=== PATIENT | male | born 1950 | race African-American/Black ===

== ENCOUNTER 2017-06-21 18:18 | Inpatient (IN) | payer MEDICARE, MEDICAID ==
[2017-06-21 19:01] LABS: % BASOPHILS 2.1 % (0.0-2.0); % EOSINOPHILS 3.5 % (0.0-5.0); % MONOCYTES 9.9 % (2.0-10.0); % NEUTROPHILS 52.5 % (40.0-80.0); HEMATOCRIT 41.2 % (39.0-49.0); HEMOGLOBIN 13.7 gm/dL (12.6-17.4); MEAN CELL VOLUME 83.9 fl (80-99); MEAN CORPUSCULAR HEMOGLOBIN 27.8 pg (27.0-31.0); MEAN CORPUSCULAR HGB CONC 33.2 pg (28.0-36.0); MEAN PLATELET VOLUME 8.6 fl; NEUTROPHILE ABSOLUTE 3.1 Th/cmm (1.8-8.0); PLATELET COUNT 236 Th/cmm (150-400); RED BLOOD COUNT 4.91 Mil/cmm (3.80-5.80); RED CELL DISTRIBUTION WIDTH 13.1 % (11.5-20.0); WHITE BLOOD COUNT 5.9 Th/cmm (4.8-10.8)
[2017-06-21 19:18] LABS: ALB/GLOB RATIO 1.3 (1.0-1.8); ANION GAP 7.9 (7.0-16.0); BILIRUBIN,TOTAL 0.4 mg/dL (0.3-1.0); BUN/CREATININE RATIO 13.1; CALCIUM SERUM 10.3 mg/dL (8.6-10.3); CARBON DIOXIDE 30.1 mEq/L (21.0-31.0); CREATININE - SERUM 1.6 mg/dL (0.7-1.3)
[2017-06-21 19:37] LABS: INR 0.93 (0.5-1.4); PROTHROMBIN TIME (TEST) 9.7 SECONDS (9.5-11.5)
--- NOTE | 2017-06-21 19:43 | ED Physician Chart ---
Chief Complaint/HPI - Patient Information Date Seen:: 06/21/17 Time Seen:: 18:24 Chief Complaint:: EDEMA History of Present Illness:: THIS IS A 67 YO MALE DIABETES MELLITUS AND CHF SENT HERE FOR EVALUATION AND TREATMENT OF HIS CONDITION. 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 Allergies:: Allergies Allergy/AdvReac Type Severity Reaction Status Date / Time Penicillins Allergy Verified 06/21/17 18:22 Vitals:: Vital Signs - 8 hr 06/21/17 18:22 Temp 99.0 F HR 86 RR 17 BP 154/60 O2 Sat % 100 Historian:: Medical Records Review:: Nurse's Note Reviewed Review of Systems - Review of Systems General/Constitutional: No fever, No chills, No weight loss, No weakness, No diaphoresis, No edema, No loss of appetite Skin: No skin lesions, No rash, No bruising Head: No headache, No light-headedness Eyes: No loss of vision, No pain, No diplopia ENT: No earache, No nasal drainage, No sore throat, No tinnitus Neck: No neck pain, No swelling, No thyromegaly, No stiffness, No mass noted Cardio Vascular: No chest pain, No palpitations, No PND, No orthopnea, No edema Pulmonary: No SOB, No cough, No sputum, No wheezing GI: No nausea, No vomiting, No diarrhea, No pain, No melena, No hematochezia, No constipation, No hematemesis G/U: No dysuria, No frequency, No hematuria Musculoskeletal: No bone or joint pain, No back pain, No muscle pain, Other ( EDEMA OF BOTH LOWER EXTREMITIES) Endocrine: No polyuria, No polydipsia Psychiatric: No prior psych history, No depression, No anxiety, No suicidal ideation Hematopoietic: No bruising, No lymphadenopathy Allergic/Immuno: No urticaria, No angioedema Neurological: No syncope, No focal symptoms, No weakness, No paresthesia, No headache, No seizure, No dizziness, No confusion, No vertigo Past Medical History - Past Medical History Obtainable: Yes Past Medical History: HTN, DM, CHF Family History: None Social History: Non Smoker, No Alcohol, No Drug Use Surgical History: other (BKA S) Psychiatricy History: Schizophrenia Family Medical History - Family Member Mother History Unknown: Yes Physical Exam - Physical Examination General/Constitutional: Awake, Well-developed, well-nourished, Alert, No distress, GCS 15, Non-toxic appearing, Ambulatory Head: Atraumatic Eyes: Lids, conjuctiva normal, PERRL, EOMI Skin: Nl inspection, No rash, No skin lesions, No ecchymosis, Well hydrated, No lymphadenopathy ENMT: External ears, nose nl, Nasal exam nl, Lips, teeth, gums nl Neck: Nontender, Full ROM w/o pain, No JVD, No nuchal rigidity, No bruit, No mass, No stridor Respiratory: Nl effort/Exclusion, Clear to Auscultation, No Wheeze/Rhonchi/Rales Cardio Vascular: RRR, No murmur, gallop, rubs, NL S1 S2 GI: No tenderness/rebounding/guarding, No organomegaly, No hernia, Normal BS's, Nondistended, No mass/bruits, No McBurney tenderness : No CVA tenderness Other Extremities comments:: BOTH BKA STUMPS ARE SWOLLEN WITH 4+ PITTING EDEMA Neuro/Psych: Alert/oriented, DTR's symmetric, Normal sensory exam, Normal motor strength, Judgement/insight normal, Mood normal, Normal gait, No focal deficits Misc: normal gait, Normal back, No paraspinal tenderness Labs/Radiology/EKG Results - Lab Results Results: Laboratory Tests 06/21/17 06/21/17 06/21/17 18:52 18:52 18:52 WBC 5.9 RBC 4.91 Hgb 13.7 Hct 41.2 MCV 83.9 MCH 27.8 MCHC Differential 33.2 RDW 13.1 Plt Count 236 MPV 8.6 Neutrophils % 52.5 Lymphocytes % 32.0 Monocytes % 9.9 Eosinophils % 3.5 Basophils % 2.1 H Sodium 128 L Potassium 4.0 Chloride 94 L Carbon Dioxide 30.1 Anion Gap 7.9 BUN 21 Creatinine 1.6 H Est GFR ( Amer) 55.9 Est GFR (Non-Af Amer) 46.2 BUN/Creatinine Ratio 13.1 Glucose 434 H Calcium 10.3 Total Bilirubin 0.4 AST 16 ALT 9 Alkaline Phosphatase 117 H Troponin I 0.01 B-Natriuretic Peptide Total Protein 8.0 Albumin 4.5 Globulin 3.5 Albumin/Globulin Ratio 1.3 06/21/17 18:52 WBC RBC Hgb Hct MCV MCH MCHC Differential RDW Plt Count MPV Neutrophils % Lymphocytes % Monocytes % Eosinophils % Basophils % Sodium Potassium Chloride Carbon Dioxide Anion Gap BUN Creatinine Est GFR ( Amer) Est GFR (Non-Af Amer) BUN/Creatinine Ratio Glucose Calcium Total Bilirubin AST ALT Alkaline Phosphatase Troponin I B-Natriuretic Peptide 48.6 Total Protein Albumin Globulin Albumin/Globulin Ratio Abnormal Lab Results 06/21/17 06/21/17 06/21/17 18:52 18:52 18:52 WBC 5.9 RBC 4.91 Hgb 13.7 Hct 41.2 MCV 83.9 MCH 27.8 MCHC Differential 33.2 RDW 13.1 Plt Count 236 MPV 8.6 Neutrophils % 52.5 Lymphocytes % 32.0 Monocytes % 9.9 Eosinophils % 3.5 Basophils % 2.1 H PT 9.7 INR 0.93 PTT (Actin FS) 26.2 Sodium 128 L Potassium 4.0 Chloride 94 L Carbon Dioxide 30.1 Anion Gap 7.9 BUN 21 Creatinine 1.6 H Est GFR ( Amer) 55.9 Est GFR (Non-Af Amer) 46.2 BUN/Creatinine Ratio 13.1 Glucose 434 H Hemoglobin A1c % Calcium 10.3 Total Bilirubin 0.4 AST 16 ALT 9 Alkaline Phosphatase 117 H Troponin I B-Natriuretic Peptide Total Protein 8.0 Albumin 4.5 Globulin 3.5 Albumin/Globulin Ratio 1.3 TSH 06/21/17 06/21/17 06/21/17 18:52 18:52 18:52 WBC RBC Hgb Hct MCV MCH MCHC Differential RDW Plt Count MPV Neutrophils % Lymphocytes % Monocytes % Eosinophils % Basophils % PT INR PTT (Actin FS) Sodium Potassium Chloride Carbon Dioxide Anion Gap BUN Creatinine Est GFR ( Amer) Est GFR (Non-Af Amer) BUN/Creatinine Ratio Glucose Hemoglobin A1c % Calcium Total Bilirubin AST ALT Alkaline Phosphatase Troponin I 0.01 B-Natriuretic Peptide 48.6 Total Protein Albumin Globulin Albumin/Globulin Ratio TSH 1.00 06/21/17 18:52 WBC RBC Hgb Hct MCV MCH MCHC Differential RDW Plt Count MPV Neutrophils % Lymphocytes % Monocytes % Eosinophils % Basophils % PT INR PTT (Actin FS) Sodium Potassium Chloride Carbon Dioxide Anion Gap BUN Creatinine Est GFR ( Amer) Est GFR (Non-Af Amer) BUN/Creatinine Ratio Glucose Hemoglobin A1c % 12.2 H Calcium Total Bilirubin AST ALT Alkaline Phosphatase Troponin I B-Natriuretic Peptide Total Protein Albumin Globulin Albumin/Globulin Ratio TSH - Radiology Results Results: CHEST X-RAY = CARDIOMEGALY - EKG Interpretations EKG Time:: 18:48 Rate & Rhythm: 80 RATE SINUS [place]: RIGHT AXIS Assessment - Assessment General Assessment: CHRONIC CONGESTIVE FAILURE ED Septic Shock - . Is Septic Shock (SBP<90, OR Lactate>4 mmol\L) present?: No - <6hrs of presentation: Vital Signs: Vital Signs - 8 hr 06/21/17 18:22 Temp 99.0 F HR 86 RR 17 BP 154/60 O2 Sat % 100 Reassessment (Disposition) - Reassessment Reassessment Condition:: Unchanged - Diagnosis Diagnosis:: CONGESTIVE HEART FAILURE ELECTROLYTE IMBALANCE BILATERAL LOWER EXTREMITY EDEMA DIABETES UNCONTROLLED - Patient Disposition Discharge/Transfer:: Acute Care w/in this hosp Admitted to:: Telemetry Admitting Medical Physician:: Bob Meehan Condition at Disposition:: Unchanged ED Discharge Plan - Patient Disposition Admit/Discharge/Transfer: Acute Care w/in this hosp Condition at Disposition: Unchanged
[2017-06-21 22:16] LABS: URINE BILIRUBIN NEGATIVE (NEGATIVE); URINE BLOOD NEGATIVE (NEGATIVE); URINE GLUCOSE (UA) >=1000 mg/dL (NEGATIVE); URINE KETONE NEGATIVE (NEGATIVE); URINE PROTEIN NEGATIVE (NEGATIVE); URINE UROBILINOGEN 0.2 E.U./dL (0.2 - 1.0)
[2017-06-21 22:19] LABS: URINE BACTERIA NONE SEEN /hpf (NONE SEEN); URINE COLOR PALE YELLOW; URINE EPITHELIAL CELLS RARE /lpf (FEW); URINE RBC 0-2 /hpf (0-5); URINE WBC 0-2 /hpf (0-5)
[2017-06-21] MEDS ORDERED: INSULIN HUMAN REGULAR 100 UNITS/ML UNIT SUBQ SCH (22:20)
[2017-06-21] MEDS ORDERED: Acetaminophen 500 MG TAB PO PRN (22:20)
[2017-06-22] MEDS: INSULIN 70/30 100 UNITS/ML SUBQ SCH ×3 (00:38→18:01)
[2017-06-22] MEDS: Sodium Chloride 0.9% 1,000 ML IV SCH ×2 (00:45→14:31)
[2017-06-22] MEDS: INSULIN ASPART SLIDING SCALE 100 UNITS/ML UNIT SUBQ SCH ×5 (00:46→23:02)
--- NOTE | 2017-06-22 03:48 | Admit Criteria Form ---
Admit Criteria Forms - Admit Criteria Diagnosis: HEART FAILURE Clinical Indications for Admission to Inpatient Care (Place 'X' for any and all applicable criteria): Admission is indicated by 1 or more of the following(1)(2)(3)(4)(5)(6)(7) [ ]I. Hemodynamic instability(9) [X ]II. Severe electrolyte abnormalities requiring inpatient care [ ]III. Cardiac arrhythmias of immediate concern [ ]IV. Precipitating cause for acute decompensation (eg, pneumonia, pulmonary embolism) requires inpatient care [ ]V. Acute cardiac ischemia causing or associated with failure (Also use Angina or Myocardial Infarction as appropriate) [ ]. Pulmonary edema that is very severe (eg, mechanical ventilation needed, imminent or likely, need for 100% oxygen to keep oxygen saturation above 90%) [ ]VII. Massive skin edema (anasarca) with complications (eg tissue breakdown with infection, inability to void due to edema)[A] (15) [ ]VIIl. Inpatient admission required [B]rather than observation care (See Heart Failure: Observation Care as appropriate) because of 1 or more of the following(16)(17): [ ]a) Pulmonary edema that is severe or worsening as indicated by ALL of the following: [ ]1) New need for oxygen therapy to keep oxygen saturation above 90% (or increased FiO2 need from baseline) [ ]2) Has not improved sufficiently with emergency department or observation care IV diuretics or other heart failure treatments[C] [ ]b) Altered mental status that is severe or persistent [ ]c) Increased creatinine (new on laboratory test) with reduction of more than 50% in estimated glomerular filtration rate from baseline. [ ]d) Progressively (ongoing) rising creatinine (known from past laboratory test) with reduction of more than 25% in estimated glomerular filtration rate from baseline [ ]e) Acute renal insufficiency (progressively (ongoing) rising creatinine (known from past laboratory test) with reduction of more than 25% in estimated glomerular filtration rate from baseline. [ ]f) Acute renal failure [ ]g) Acute peripheral ischemia (e.g., examination shows pulseless, cool, mottled, or cyanotic extremity) [ ]h) Oyxgen administration or respiratory treatments have been needed for over 24 hours that are performable only in acute inpatient setting [ ]i) Pulmonary artery catheter monitoring [ ]j) Other condition, treatment or monitoring requiring inpatient admission Extended stay beyond goal length of stay may be needed for(1)(14)(38)(42)(45) [ ]a) Cardiac ischemia, confirmed or suspected as precipitant (1) [ ]b) Cardiogenic shock (2)(46)(47)(48)(49) [ ]c) Acute renal failure [ ]d) Stage IV chronic kidney disease (estimated glomerular filtration rate of less than 30 mL/min/1.73m2 (0.50 mL/sec/1.73m2), and not previously on chronic dialysis [ ]e) Respiratory failure (eg, need for noninvasive or invasive ventilation) ( 50) [ ]f) Concomitant pneumonia or significant electrolyte abnormality (eg, severe hyponatremia) (51) [ ]g) Newly diagnosed (new onset) atrial fibrillation (52)(53) The original [facility] content created by [facility] has been revised. The portions of the content which have been revised are identified through the use of italic text or in bold, and [facility] has neither reviewed nor approved the modified material. All other unmodified content is copyright [facility]. Please see references footnoted in the original [facility] edition 2017 Admit Criteria Met?: Yes
[2017-06-22 04:03] VITALS: BP 149/84
[2017-06-22 07:20] LABS: % BASOPHILS 0.4 % (0.0-2.0); % LYMPHOCYTES 27.2 % (20.0-50.0); % MONOCYTES 14.4 % (2.0-10.0); HEMATOCRIT 40.1 % (39.0-49.0); HEMOGLOBIN 13.3 gm/dL (12.6-17.4); MEAN CELL VOLUME 83.4 fl (80-99); MEAN CORPUSCULAR HEMOGLOBIN 27.7 pg (27.0-31.0); MEAN CORPUSCULAR HGB CONC 33.2 pg (28.0-36.0); NEUTROPHILE ABSOLUTE 3.6 Th/cmm (1.8-8.0); PLATELET COUNT 211 Th/cmm (150-400); RED BLOOD COUNT 4.81 Mil/cmm (3.80-5.80); RED CELL DISTRIBUTION WIDTH 13.2 % (11.5-20.0); WHITE BLOOD COUNT 6.6 Th/cmm (4.8-10.8)
[2017-06-22 07:36] LABS: ALB/GLOB RATIO 1.3 (1.0-1.8); ALKALINE PHOSPHATASE 119 U/L (34-104); ANION GAP 7.2 (7.0-16.0); BILIRUBIN,TOTAL 0.4 mg/dL (0.3-1.0); BUN - UREA NITROGEN 20 mg/dL (7-25); BUN/CREATININE RATIO 13.3; CALCIUM SERUM 10.1 mg/dL (8.6-10.3); CARBON DIOXIDE 28.7 mEq/L (21.0-31.0); CHLORIDE 103 mEq/L (98-107); CHOLESTEROL 134 mg/dL (<200); CREATININE - SERUM 1.5 mg/dL (0.7-1.3); GLUCOSE 309 mg/dL (70-105); POTASSIUM SERUM 3.9 mEq/L (3.5-5.1); SGOT 17 U/L (13-39); SGPT/ALT 9 U/L (7-52); SODIUM SERUM 135 mEq/L (136-145); TRIGLYCERIDES 147 mg/dL (<150)
--- NOTE | 2017-06-22 08:16 | Diagnostic Imaging Report ---
Portable chest x-ray HISTORY: Shortness of breath There is a poor inspiration. Heart size difficult to assess with portable technique and the poor inspiration. No focal pulmonary processes. No hilar or mediastinal masses. IMPRESSION: 1. No acute focal pulmonary processes
[2017-06-22] MEDS ORDERED: [UNRECOGNIZED DRUG - OTHER] OP SCH (09:00)
[2017-06-22] MEDS ORDERED: PROTEIN HYDROLYS PO SCH (09:00)
[2017-06-22] MEDS ORDERED: Non-Formulary Item 1 EA (Ranolazine [Ranexa] 500 MG) PO SCH (09:00)
[2017-06-22] MEDS ORDERED: AMINO ACIDS PO SCH (09:00)
[2017-06-22] MEDS ORDERED: KETOROLAC TROMETHAMINE OP SCH (09:00)
[2017-06-22] MEDS: Pantoprazole 40 mg EC Tab PO SCH (09:47)
[2017-06-22] MEDS: Aspirin 81mg Chewable Tab PO SCH (09:47)
[2017-06-22] MEDS: Potassium Chloride Elixir 20 mEq /15 mL UDC PO SCH (09:48)
[2017-06-22] MEDS: Prednisolone 1% Ophth Susp 5 mL Bottle RIGHT EYE SCH ×4 (10:28→22:55)
[2017-06-22] MEDS ORDERED: VTE Chemical Prophylaxis Screen/Admission MC PRN (15:38)
[2017-06-22] MEDS ORDERED: PRAVASTATIN SODIUM 20 MG PO SCH (18:00)
--- NOTE | 2017-06-22 20:34 | History & Physical ---
ADMIT DATE: 06/21/2017 HISTORY OF PRESENT ILLNESS: This is a 67-year-old male patient. The patient was referred from [facility]. The patient has been there for a psychiatric problem. Also known to have history of hypertension and diabetes, bilateral knee amputation. The patient was complaining of increasing swelling, as well as the patient's diabetes was uncontrolled. The patient was seen in the Emergency Room, was admitted for uncontrolled diabetes. The patient is known to have history of hypertension, history of CHF. REVIEW OF SYSTEMS: Essentially negative. PAST MEDICAL HISTORY: As enumerated above. PHYSICAL EXAMINATION: GENERAL: The patient is awake, alert. VITAL SIGNS: Stable. HEAD: Normal. ENT: Normal. EXTREMITIES: Both BKA stumps were swollen. There was 4+ pitting edema. LABORATORY DATA: WBC count was 4.9, hemoglobin was okay. His initial set of troponin was okay. The patient's chest x-ray showed cardiomegaly. DIAGNOSES: Acute on chronic congestive heart failure, systolic heart failure, rule out pneumonia, bilateral stump swelling, rule out cellulitis, history of diabetes, diabetes uncontrolled. PLAN: The patient is being admitted. I will go ahead and give orders for the control of his blood sugar, antibiotics, and I will also have ID doctor see the patient and I will follow the patient. JOB# [id number]
[2017-06-22] MEDS ORDERED: QUETIAPINE FUMARATE 300 MG PO SCH (21:00)
--- NOTE | 2017-06-22 23:13 | Consultation ---
DATE OF CONSULTATION: 06/22/[address] Meehan. HISTORY AND PHYSICAL: This is a 67-year-old -[place] male patient, who has a known history of congestive heart failure, diabetes, complaining of shortness of breath, swelling in upper and lower extremities with general anasarca and the patient came to the Emergency Room with congestive heart failure. The patient is admitted. Cardiac consult is requested. PAST MEDICAL HISTORY: Congestive heart failure; diabetes mellitus type 2; diabetic CKD, stage 2; diabetic neuropathy with blindness, BPH, hypertension, cataract; hyperlipidemia; nicotine dependence; angina; schizophrenia; and bipolar. FAMILY HISTORY: Unremarkable except diabetes. SOCIAL HISTORY: The patient still continues to smoke. ALLERGIES: None. PHYSICAL EXAMINATION: VITAL SIGNS: Blood pressure 130/80, pulse 88, respirations 28. HEAD: Normocephalic. No lumps or bumps. EYES: . The patient is legally blind. NECK: JVD 10 cm above the sternal angle. Thyroid not palpable. Lymph nodes not palpable. CHEST: Shows increased AP diameter. No kyphosis, scoliosis. LUNGS: Bilateral rales. Decreased breath sounds both at the bases. HEART: PMI at sixth intercostal space with lateral to midclavicular line. S1, S2, S3, S4, soft systolic murmur. ABDOMEN: Soft. Liver and spleen not palpable. Hepatojugular reflux. Positive bowel sounds active. RECTAL: Deferred. EXTREMITIES: Peripheral pulses 1+, pedal edema 2+. CLINICAL IMPRESSION: Congestive heart failure, acute diastolic dysfunction, diabetes mellitus type 2, diabetic chronic kidney disease stage 2, BPH, hypertension, cataract, hyperlipidemia, nicotine dependence, angina, schizophrenia, bipolar, diabetic retinopathy with blindness. PLAN: At the present time, we will continue diuretics, preload and afterload reduction, and get echocardiogram for left ventricular function. JOB# [id number]
--- NOTE | 2017-06-23 01:37 | Consultation ---
DATE OF CONSULTATION: 06/22/2017 ATTENDING: Dr. Lin Meehan. LOCATION DIRECTOR: Lg Collier M.D. REASON FOR CONSULTATION: Worsening kidney function, electrolyte imbalance and fluid management. HISTORY OF PRESENT ILLNESS: This is a 67-year-old -[place] male with past medical history of chronic kidney disease, who came in because of nonhealing right stump. A few days prior to admission, ECF staff noted nonhealing right stump. A few hours prior to admission, the patient complained of bipedal edema and weight gain. He was then brought to the Emergency Room. Chest x-ray revealed no acute disease with BNP of 48.6 and 48.2 respectively. White count was 5.9. Labs drawn 2 months ago, revealed a BUN/creatinine of ____/1.28. His BUN/creatinine and upon admission was 21/1.6 with a sodium of 128. He was started on IV fluids and sodium improved to 135 with a BUN/creatinine of 20/1.5. He denied any nausea and vomiting, no diarrhea. PAST MEDICAL HISTORY: 1.Chronic kidney disease. 2.Type 2 diabetes mellitus. 3.Essential hypertension. 4.Peripheral arterial disease. 5.BPH. 6.Dyslipidemia. 7.History of CHF. 8.Status post CVA. 9.Morbid obesity. 10. Paranoid schizophrenia. PAST SURGICAL HISTORY: Status post cataract extraction. CURRENT MEDICATIONS: He is currently on acetaminophen, amlodipine, ascorbic acid, aspirin, carvedilol, ____, docusate sodium, glimepiride, insulin 70/30, ketorolac, pantoprazole, potassium, pravastatin, prednisolone, quetiapine, Ranexa, Januvia, Flomax, zinc sulfate. ALLERGIES: ALLERGIC TO PENICILLIN. SOCIAL AND FAMILY HISTORY: I was not able to obtain directly from the patient because of his current mental status. REVIEW OF SYSTEMS: Again, I was unable to decipher from the patient. He is quite anxious with some paranoia. PHYSICAL EXAMINATION: GENERAL: The patient is alert, verbal and comfortable, but keeps on talking. VITAL SIGNS: Blood pressure is 141/83, pulse is 90, temperature 98 degrees. SKIN: Poor turgor, warm. No rash, no jaundice appreciated. HEENT: Head normocephalic, atraumatic. Eyes: Extraocular muscles intact. Pupils equal, round, reactive to light and accommodates. Anicteric sclerae. Pale conjunctivae. Nose, midline nasal septum. Mouth: Dry mucosa with very poor dentition. NECK: Supple, no adenopathy, no thyromegaly, no bruits. Trachea palpated in the midline. CHEST AND CVS: S1, S2. No rub, murmur or gallop appreciated. Point of maximal impulse fifth intercostal space, left midclavicular line. No abdominal or femoral bruits appreciated. LUNGS: Equal expansion. No use of accessory muscles. No supraclavicular retractions. Decreased breath sounds, but clear to auscultation without any wheeze. ABDOMEN: Obese, soft, positive for bowel sounds. No bruits either diastolic or systolic. RECTAL: The patient refused. GENITOURINARY: Normal appearing male genitalia with some swelling of his scrotum. EXTREMITIES: He has bilateral edema, with dressings on his right stump. The patient does not want dressing touched or removed. NEUROLOGIC: The patient is somewhat uncooperative, so I was not able to proceed with my neuro exam. LABORATORY DATA: Did reveal a white count 6.6, hemoglobin 13.3, hematocrit 40.1, platelets 211, polys 55%. Sodium 135, potassium 3.9, chloride, 103, CO2 28, BUN 20, creatinine 1.5, glucose 309, calcium 10.1, alk phos 119. BNP as mentioned already 48.2. Troponin 0.01. TSH is 1 and 1.3. IMPRESSION: 1.Acute kidney injury on chronic kidney disease, greater than ____ mL per minute, stage 2. Chronic kidney disease is secondary to diabetic nephropathy with longstanding history of diabetes as well as hypertensive nephrosclerosis. Acute kidney injury is likely prerenal in nature secondary to polyuria. This was supported by the patient's very low specific gravity suggestive of diuresis. 2.Hyponatremia secondary to increased sodium loss, again due to his polyuria with a very dilute urine. There is also the possibility of pseudohyponatremia secondary to uncontrolled blood sugar. 3.Type 2 diabetes mellitus, which is now out of control. 4.Essential hypertension with chronic kidney disease. 5.Peripheral artery disease. 6.Benign prostatic hypertrophy. 7.Dyslipidemia. 8.History of congestive heart failure. 9.Status post cerebrovascular accident. 10.Obesity. 11.Paranoid schizophrenia. PLAN: 1.Urinalysis. 2.Urine spot sodium. 3.Urine microalbumin to creatinine ratio. 4.Renal ultrasound. 5.Agree with normal saline for now. 6.Uric acid, cortisol level as well as serum osmolality and electrolytes. I thank you, Dr. Meehan for this consult. I will follow the patient closely with you. JOB# [id number]
[2017-06-23 07:32] LABS: MAGNESIUM 2.1 mg/dL (1.9-2.7); URIC ACID 6.4 mg/dL (4.4-7.6)
[2017-06-23 07:34] LABS: ALB/GLOB RATIO 1.2 (1.0-1.8); ALKALINE PHOSPHATASE 100 U/L (34-104); ANION GAP 6.3 (7.0-16.0); BILIRUBIN,TOTAL 0.5 mg/dL (0.3-1.0); BUN - UREA NITROGEN 18 mg/dL (7-25); BUN/CREATININE RATIO 13.8; CALCIUM SERUM 9.7 mg/dL (8.6-10.3); CARBON DIOXIDE 29.6 mEq/L (21.0-31.0); CHLORIDE 103 mEq/L (98-107); CREATININE - SERUM 1.3 mg/dL (0.7-1.3); GLUCOSE 177 mg/dL (70-105); POTASSIUM SERUM 3.9 mEq/L (3.5-5.1); SGOT 17 U/L (13-39); SGPT/ALT 7 U/L (7-52); SODIUM SERUM 135 mEq/L (136-145)
[2017-06-23] MEDS: INSULIN ASPART SLIDING SCALE 100 UNITS/ML UNIT SUBQ SCH ×3 (07:38→18:00)
[2017-06-23 07:41] LABS: % BASOPHILS 0.3 % (0.0-2.0); % EOSINOPHILS 3.1 % (0.0-5.0); % LYMPHOCYTES 33.9 % (20.0-50.0); % MONOCYTES 12.1 % (2.0-10.0); % NEUTROPHILS 50.6 % (40.0-80.0); HEMATOCRIT 41.1 % (39.0-49.0); HEMOGLOBIN 13.4 gm/dL (12.6-17.4); MEAN CELL VOLUME 84.2 fl (80-99); MEAN CORPUSCULAR HEMOGLOBIN 27.4 pg (27.0-31.0); MEAN CORPUSCULAR HGB CONC 32.6 pg (28.0-36.0); MEAN PLATELET VOLUME 9.1 fl; NEUTROPHILE ABSOLUTE 3.9 Th/cmm (1.8-8.0); PLATELET COUNT 235 Th/cmm (150-400); RED BLOOD COUNT 4.88 Mil/cmm (3.80-5.80); RED CELL DISTRIBUTION WIDTH 13.3 % (11.5-20.0); WHITE BLOOD COUNT 7.5 Th/cmm (4.8-10.8)
[2017-06-23] MEDS: Sodium Chloride 0.9% 1,000 ML IV SCH (07:45)
--- NOTE | 2017-06-23 08:21 | General Progress Note ---
Subjective - Review of Systems Events since last encounter: [facility] admitted with increase swelling as well as the patients uncontrolled DM Objective - Results Result Diagrams: 06/23/17 05:40 06/23/17 05:40 Recent Labs: Laboratory Last Values WBC 7.5 Th/cmm (4.8-10.8) 06/23/17 05:40 RBC 4.88 Mil/cmm (3.80-5.80) 06/23/17 05:40 Hgb 13.4 gm/dL (12.6-17.4) 06/23/17 05:40 Hct 41.1 % (39.0-49.0) 06/23/17 05:40 MCV 84.2 fl (80-99) 06/23/17 05:40 MCH 27.4 pg (27.0-31.0) 06/23/17 05:40 MCHC Differential 32.6 pg (28.0-36.0) 06/23/17 05:40 RDW 13.3 % (11.5-20.0) 06/23/17 05:40 Plt Count 235 Th/cmm (150-400) 06/23/17 05:40 MPV 9.1 fl 06/23/17 05:40 Neutrophils % 50.6 % (40.0-80.0) 06/23/17 05:40 Lymphocytes % 33.9 % (20.0-50.0) 06/23/17 05:40 Monocytes % 12.1 % (2.0-10.0) H 06/23/17 05:40 Eosinophils % 3.1 % (0.0-5.0) 06/23/17 05:40 Basophils % 0.3 % (0.0-2.0) 06/23/17 05:40 PT 9.7 SECONDS (9.5-11.5) 06/21/17 18:52 INR 0.93 (0.5-1.4) 06/21/17 18:52 PTT (Actin FS) 26.2 SECONDS (26.0-38.0) 06/21/17 18:52 Sodium 135 mEq/L (136-145) L 06/23/17 05:40 Potassium 3.9 mEq/L (3.5-5.1) 06/23/17 05:40 Chloride 103 mEq/L (98-107) 06/23/17 05:40 Carbon Dioxide 29.6 mEq/L (21.0-31.0) 06/23/17 05:40 Anion Gap 6.3 (7.0-16.0) L 06/23/17 05:40 BUN 18 mg/dL (7-25) 06/23/17 05:40 Creatinine 1.3 mg/dL (0.7-1.3) 06/23/17 05:40 Est GFR ( Amer) > 60.0 ml/min (>90) 06/23/17 05:40 Est GFR (Non-Af Amer) 58.7 ml/min 06/23/17 05:40 BUN/Creatinine Ratio 13.8 06/23/17 05:40 Glucose 177 mg/dL (70-105) H 06/23/17 05:40 POC Glucose 192 MG/DL (70 - 105) H 06/23/17 07:10 Hemoglobin A1c % 12.2 % (4.0-6.0) H 06/21/17 18:52 Uric Acid 6.4 mg/dL (4.4-7.6) 06/23/17 05:40 Calcium 9.7 mg/dL (8.6-10.3) 06/23/17 05:40 Phosphorus 3.0 mg/dL (2.5-5.0) 06/23/17 05:40 Magnesium 2.1 mg/dL (1.9-2.7) 06/23/17 05:40 Total Bilirubin 0.5 mg/dL (0.3-1.0) 06/23/17 05:40 AST 17 U/L (13-39) 06/23/17 05:40 ALT 7 U/L (7-52) 06/23/17 05:40 Alkaline Phosphatase 100 U/L (34-104) 06/23/17 05:40 Troponin I 0.01 ng/mL (0.01-0.05) 06/21/17 18:52 B-Natriuretic Peptide 48.2 pg/mL (5.0-100.0) 06/22/17 06:30 Total Protein 7.4 gm/dL (6.0-8.3) 06/23/17 05:40 Albumin 4.1 gm/dL (4.2-5.5) L 06/23/17 05:40 Globulin 3.3 gm/dL 06/23/17 05:40 Albumin/Globulin Ratio 1.2 (1.0-1.8) 06/23/17 05:40 Triglycerides 147 mg/dL (<150) 06/22/17 06:30 Cholesterol 134 mg/dL (<200) 06/22/17 06:30 LDL Cholesterol Direct 87 mg/dL (75-193) 06/22/17 06:30 HDL Cholesterol 38 mg/dL (23-92) 06/22/17 06:30 TSH 1.34 uIU/ml (0.34-5.60) 06/22/17 06:30 Urine Source CLEAN C 06/21/17 18:10 Urine Color PALE YELLOW 06/21/17 18:10 Urine Clarity CLEAR (CLEAR) 06/21/17 18:10 Urine pH 6.0 (4.6 - 8.0) 06/21/17 18:10 Ur Specific [place] <= 1.005 (1.005-1.030) 06/21/17 18:10 Urine Protein NEGATIVE mg/dL (NEGATIVE) 06/21/17 18:10 Urine Glucose (UA) >=1000 mg/dL (NEGATIVE) H 06/21/17 18:10 Urine Ketones NEGATIVE mg/dL (NEGATIVE) 06/21/17 18:10 Urine Blood NEGATIVE (NEGATIVE) 06/21/17 18:10 Urine Nitrate NEGATIVE (NEGATIVE) 06/21/17 18:10 Urine Bilirubin NEGATIVE (NEGATIVE) 06/21/17 18:10 Urine Urobilinogen 0.2 E.U./dL (0.2 - 1.0) 06/21/17 18:10 Ur Leukocyte Esterase NEGATIVE (NEGATIVE) 06/21/17 18:10 Urine RBC 0-2 /hpf (0-5) H 06/21/17 18:10 Urine WBC 0-2 /hpf (0-5) 06/21/17 18:10 Ur Epithelial Cells RARE /lpf (FEW) 06/21/17 18:10 Urine Bacteria NONE SEEN /hpf (NONE SEEN) 06/21/17 18:10 RPR NONREACTIVE (NONREACTIVE) 06/21/17 18:52 - Physical Exam Vitals and I&O: Vital Signs Temp 98.4 F 06/23/17 04:00 Pulse 78 06/23/17 04:00 Resp 18 06/23/17 04:00 BP 132/90 06/23/17 04:00 Pulse Ox 97 06/23/17 04:00 Intake & Output 06/22/17 06/23/17 06/23/17 18:59 06:59 18:59 Intake Total 1000 Balance 1000 Weight (lbs) 121.699 kg Intake: Intake, IV Amount 1000 Sodium Chloride 0.9% 1, 1000 000 ml @ 75 mls/hr IV . [id number] [facility] Rx#:[id number] Other: Stool Characteristics Soft Soft Formed Formed Active Medications: Current Medications Acetaminophen (Tylenol) 650 mg PO Q4HR PRN PRN Reason: MILD PAIN OR TEMP >101 Stop: 08/20/17 22:19 Acetaminophen (Tylenol Extra Strength) 1,000 mg PO Q4HR PRN PRN Reason: MODERATE PAIN Stop: 08/20/17 22:19 Amlodipine Besylate (Norvasc) 10 mg PO DAILY [facility] Stop: 08/21/17 08:59 Last Admin: 06/22/17 09:48 Dose: 10 mg Ascorbic Acid (Vitamin C) 500 mg PO DAILY [facility] Stop: 08/21/17 08:59 Last Admin: 06/22/17 09:47 Dose: 500 mg Aspirin (Aspirin Chewable) 81 mg PO DAILY [facility] Stop: 08/21/17 08:59 Last Admin: 06/22/17 09:47 Dose: 81 mg Carvedilol (Coreg) 25 mg PO BID [facility] Stop: 08/21/17 08:59 Last Admin: 06/22/17 18:01 Dose: 25 mg Clopidogrel Bisulfate (Plavix) 75 mg PO DAILY [facility] Stop: 08/21/17 08:59 Last Admin: 06/22/17 09:47 Dose: 75 mg Docusate Sodium (Colace) 100 mg PO DAILY [facility] Stop: 08/21/17 08:59 Last Admin: 06/22/17 09:48 Dose: 100 mg Glimepiride (Amaryl) 4 mg PO DAILY [facility] Stop: 08/21/17 08:59 Last Admin: 06/22/17 09:47 Dose: 4 mg Heparin Sodium (Porcine) (Heparin) 5,000 units SUBQ Q12HR [facility] Stop: 08/21/17 20:59 Last Admin: 06/22/17 23:00 Dose: Not Given Sodium Chloride (Nacl 0.9%) 1,000 mls @ 75 mls/hr IV .[id number] [facility] Stop: 08/21/17 00:35 Last Admin: 06/23/17 07:45 Dose: Not Given Insulin Aspart (Novolog Insulin Sliding Scale) 0 units SUBQ Q6HR [facility] PRN Reason: Protocol Stop: 08/21/17 00:00 Last Admin: 06/23/17 07:38 Dose: 2 units Insulin Human Isoph/Insulin Regular (Novolin 70/30) 30 units SUBQ BID [facility] PRN Reason: Protocol Stop: 08/20/17 22:19 Last Admin: 06/22/17 18:01 Dose: 30 units Miscellaneous (Amino Acids/Protein Hydrolys [Pro-Stat Awc Liquid]) 300 ml PO DAILY [facility] Stop: 08/21/17 08:59 Miscellaneous (Glucose Tablet) 4 g PO PRN PRN PRN Reason: blood glucose <60 Miscellaneous (Ketorolac Tromethamine/Pf [Acuvail 0.45% Ophth Solution]) 1 each OP QID [facility] Stop: 08/21/17 08:59 Miscellaneous (Pravastatin Sodium [Pravachol]) 20 mg PO 1800 [facility] Stop: 08/21/17 17:59 Miscellaneous (Quetiapine Fumarate [Seroquel Xr]) 300 mg PO HS [facility] Stop: 08/21/17 20:59 Miscellaneous (Ranolazine [Ranexa]) 500 mg PO BID [facility] Stop: 08/21/17 08:59 Miscellaneous (Vte Chemical Prophylaxis Screen/ Admission) 1 [facility] PRN PRN PRN Reason: PROTOCOL Stop: 08/21/17 15:37 Pantoprazole Sodium (Protonix) 40 mg PO DAILY [facility] Stop: 08/21/17 08:59 Last Admin: 06/22/17 09:47 Dose: 40 mg Potassium Chloride (Potassium Chloride Elixir) 10 meq PO DAILY [facility] Stop: 08/21/17 08:59 Last Admin: 06/22/17 09:48 Dose: 10 meq Prednisolone Acetate (Pred Forte 1% Ophth Susp) 1 drop RIGHT EYE QID [facility] Stop: 08/21/17 08:59 Last Admin: 06/22/17 22:55 Dose: 1 drop Sitagliptin Phosphate (Januvia) 50 mg PO DAILY [facility] Stop: 08/21/17 08:59 Last Admin: 06/22/17 09:48 Dose: 50 mg Tamsulosin HCl (Flomax) 0.4 mg PO HS [facility] Stop: 08/21/17 20:59 Last Admin: 06/22/17 22:56 Dose: 0.4 mg Zinc Sulfate (Zinc Sulfate) 220 mg PO DAILY [facility] Stop: 08/21/17 08:59 Last Admin: 06/22/17 09:47 Dose: 220 mg General: No acute distress HEENT: Atraumatic Cardiovascular: Regular rate, Normal S1 Assessment/Plan - Problem List Patient Problems: All Active Problems LOWER EXTREMITIY EDEMA WITH WEIGHT GAIN (Acute) - Plan Plan: cpm
[2017-06-23] MEDS: Aspirin 81mg Chewable Tab PO SCH (08:46)
[2017-06-23] MEDS: INSULIN 70/30 100 UNITS/ML SUBQ SCH ×2 (08:47→18:50)
[2017-06-23] MEDS: Potassium Chloride Elixir 20 mEq /15 mL UDC PO SCH (08:47)
[2017-06-23] MEDS: Prednisolone 1% Ophth Susp 5 mL Bottle RIGHT EYE SCH ×4 (08:57→21:00)
[2017-06-23] MEDS: Pantoprazole 40 mg EC Tab PO SCH (08:57)
--- NOTE | 2017-06-23 13:24 | Diagnostic Imaging Report ---
Renal ultrasound HISTORY: Abnormal renal function test The right kidney is normal in size (11.2 x 5.4 x 5.7 cm). No focal lesions. No hydronephrosis. The left kidney is normal in size (11.1 x 6.6 x 6.0 cm). Is relatively subtle 7 mm hyperechoic focus in the vicinity of the left renal pelvis. A small calculus cannot be excluded. No hydronephrosis. The exam of the urinary bladder demonstrates suggestion of wall thickening posteriorly. There is incomplete visualization of what appears to be an enlarged prostate gland with encroachment on the floor of the urinary bladder. There is excess post void urine residual (10 9 cc). IMPRESSION: 1. Subtle 7 mm hyperechoic focus in the vicinity of the left renal pelvis. A small calculus cannot be excluded. No hydronephrosis. If necessary, a CT scan would provide additional assessment. 2. Partial visualization of an enlarged prostate gland associated with encroachment on the floor of the urinary bladder. Suggestion of wall thickening along the posterior wall. 3. Excess post void residual (10 9 cc).
--- NOTE | 2017-06-23 14:44 | General Progress Note ---
Subjective - Review of Systems Service Date: 06/23/17 Subjective: Alert, comfortable, remains gregarious but confused Objective - Results Result Diagrams: 06/23/17 05:40 06/23/17 05:40 Recent Labs: Laboratory Last Values WBC 7.5 Th/cmm (4.8-10.8) 06/23/17 05:40 RBC 4.88 Mil/cmm (3.80-5.80) 06/23/17 05:40 Hgb 13.4 gm/dL (12.6-17.4) 06/23/17 05:40 Hct 41.1 % (39.0-49.0) 06/23/17 05:40 MCV 84.2 fl (80-99) 06/23/17 05:40 MCH 27.4 pg (27.0-31.0) 06/23/17 05:40 MCHC Differential 32.6 pg (28.0-36.0) 06/23/17 05:40 RDW 13.3 % (11.5-20.0) 06/23/17 05:40 Plt Count 235 Th/cmm (150-400) 06/23/17 05:40 MPV 9.1 fl 06/23/17 05:40 Neutrophils % 50.6 % (40.0-80.0) 06/23/17 05:40 Lymphocytes % 33.9 % (20.0-50.0) 06/23/17 05:40 Monocytes % 12.1 % (2.0-10.0) H 06/23/17 05:40 Eosinophils % 3.1 % (0.0-5.0) 06/23/17 05:40 Basophils % 0.3 % (0.0-2.0) 06/23/17 05:40 PT 9.7 SECONDS (9.5-11.5) 06/21/17 18:52 INR 0.93 (0.5-1.4) 06/21/17 18:52 PTT (Actin FS) 26.2 SECONDS (26.0-38.0) 06/21/17 18:52 Sodium 135 mEq/L (136-145) L 06/23/17 05:40 Potassium 3.9 mEq/L (3.5-5.1) 06/23/17 05:40 Chloride 103 mEq/L (98-107) 06/23/17 05:40 Carbon Dioxide 29.6 mEq/L (21.0-31.0) 06/23/17 05:40 Anion Gap 6.3 (7.0-16.0) L 06/23/17 05:40 BUN 18 mg/dL (7-25) 06/23/17 05:40 Creatinine 1.3 mg/dL (0.7-1.3) 06/23/17 05:40 Est GFR ( Amer) > 60.0 ml/min (>90) 06/23/17 05:40 Est GFR (Non-Af Amer) 58.7 ml/min 06/23/17 05:40 BUN/Creatinine Ratio 13.8 06/23/17 05:40 Glucose 177 mg/dL (70-105) H 06/23/17 05:40 POC Glucose 192 MG/DL (70 - 105) H 06/23/17 07:10 Hemoglobin A1c % 12.2 % (4.0-6.0) H 06/21/17 18:52 Uric Acid 6.4 mg/dL (4.4-7.6) 06/23/17 05:40 Calcium 9.7 mg/dL (8.6-10.3) 06/23/17 05:40 Phosphorus 3.0 mg/dL (2.5-5.0) 06/23/17 05:40 Magnesium 2.1 mg/dL (1.9-2.7) 06/23/17 05:40 Total Bilirubin 0.5 mg/dL (0.3-1.0) 06/23/17 05:40 AST 17 U/L (13-39) 06/23/17 05:40 ALT 7 U/L (7-52) 06/23/17 05:40 Alkaline Phosphatase 100 U/L (34-104) 06/23/17 05:40 Troponin I 0.01 ng/mL (0.01-0.05) 06/21/17 18:52 B-Natriuretic Peptide 48.2 pg/mL (5.0-100.0) 06/22/17 06:30 Total Protein 7.4 gm/dL (6.0-8.3) 06/23/17 05:40 Albumin 4.1 gm/dL (4.2-5.5) L 06/23/17 05:40 Globulin 3.3 gm/dL 06/23/17 05:40 Albumin/Globulin Ratio 1.2 (1.0-1.8) 06/23/17 05:40 Triglycerides 147 mg/dL (<150) 06/22/17 06:30 Cholesterol 134 mg/dL (<200) 06/22/17 06:30 LDL Cholesterol Direct 87 mg/dL (75-193) 06/22/17 06:30 HDL Cholesterol 38 mg/dL (23-92) 06/22/17 06:30 TSH 1.34 uIU/ml (0.34-5.60) 06/22/17 06:30 Urine Source CLEAN C 06/21/17 18:10 Urine Color PALE YELLOW 06/21/17 18:10 Urine Clarity CLEAR (CLEAR) 06/21/17 18:10 Urine pH 6.0 (4.6 - 8.0) 06/21/17 18:10 Ur Specific [place] <= 1.005 (1.005-1.030) 06/21/17 18:10 Urine Protein NEGATIVE mg/dL (NEGATIVE) 06/21/17 18:10 Urine Glucose (UA) >=1000 mg/dL (NEGATIVE) H 06/21/17 18:10 Urine Ketones NEGATIVE mg/dL (NEGATIVE) 06/21/17 18:10 Urine Blood NEGATIVE (NEGATIVE) 06/21/17 18:10 Urine Nitrate NEGATIVE (NEGATIVE) 06/21/17 18:10 Urine Bilirubin NEGATIVE (NEGATIVE) 06/21/17 18:10 Urine Urobilinogen 0.2 E.U./dL (0.2 - 1.0) 06/21/17 18:10 Ur Leukocyte Esterase NEGATIVE (NEGATIVE) 06/21/17 18:10 Urine RBC 0-2 /hpf (0-5) H 06/21/17 18:10 Urine WBC 0-2 /hpf (0-5) 06/21/17 18:10 Ur Epithelial Cells RARE /lpf (FEW) 06/21/17 18:10 Urine Bacteria NONE SEEN /hpf (NONE SEEN) 06/21/17 18:10 RPR NONREACTIVE (NONREACTIVE) 06/21/17 18:52 - Physical Exam Vitals and I&O: Vital Signs Temp 97.9 F 06/23/17 12:00 Pulse 76 06/23/17 12:00 Resp 20 06/23/17 12:00 BP 137/68 06/23/17 12:00 Pulse Ox 98 06/23/17 12:00 Intake & Output 06/22/17 06/23/17 06/23/17 18:59 06:59 18:59 Intake Total 1000 240 Balance 1000 240 Weight (lbs) 121.699 kg 121.563 kg Intake: Intake, IV Amount 1000 Sodium Chloride 0.9% 1, 1000 000 ml @ 75 mls/hr IV . [id number] [facility] Rx#:[id number] Oral 240 Other: Stool Characteristics Soft Soft Soft Formed Formed Active Medications: Current Medications Acetaminophen (Tylenol) 650 mg PO Q4HR PRN PRN Reason: MILD PAIN OR TEMP >101 Stop: 08/20/17 22:19 Acetaminophen (Tylenol Extra Strength) 1,000 mg PO Q4HR PRN PRN Reason: MODERATE PAIN Stop: 08/20/17 22:19 Last Admin: 06/23/17 09:54 Dose: 1,000 mg Amlodipine Besylate (Norvasc) 10 mg PO DAILY [facility] Stop: 08/21/17 08:59 Last Admin: 06/23/17 08:45 Dose: 10 mg Ascorbic Acid (Vitamin C) 500 mg PO DAILY [facility] Stop: 08/21/17 08:59 Last Admin: 06/23/17 08:46 Dose: 500 mg Aspirin (Aspirin Chewable) 81 mg PO DAILY [facility] Stop: 08/21/17 08:59 Last Admin: 06/23/17 08:46 Dose: 81 mg Carvedilol (Coreg) 25 mg PO BID [facility] Stop: 08/21/17 08:59 Last Admin: 06/23/17 08:46 Dose: 25 mg Clopidogrel Bisulfate (Plavix) 75 mg PO DAILY [facility] Stop: 08/21/17 08:59 Last Admin: 06/23/17 08:46 Dose: 75 mg Docusate Sodium (Colace) 100 mg PO DAILY [facility] Stop: 08/21/17 08:59 Last Admin: 06/23/17 08:47 Dose: 100 mg Glimepiride (Amaryl) 4 mg PO DAILY [facility] Stop: 08/21/17 08:59 Last Admin: 06/23/17 08:46 Dose: 4 mg Heparin Sodium (Porcine) (Heparin) 5,000 units SUBQ Q12HR [facility] Stop: 08/21/17 20:59 Last Admin: 06/23/17 09:01 Dose: 5,000 units Sodium Chloride (Nacl 0.9%) 1,000 mls @ 75 mls/hr IV .[id number] [facility] Stop: 08/21/17 00:35 Last Admin: 06/23/17 07:45 Dose: Not Given Insulin Aspart (Novolog Insulin Sliding Scale) 0 units SUBQ Q6HR [facility] PRN Reason: Protocol Stop: 08/21/17 00:00 Last Admin: 06/23/17 12:27 Dose: Not Given Insulin Human Isoph/Insulin Regular (Novolin 70/30) 30 units SUBQ BID [facility] PRN Reason: Protocol Stop: 08/20/17 22:19 Last Admin: 06/23/17 08:47 Dose: 30 units Miscellaneous (Glucose Tablet) 4 g PO PRN PRN PRN Reason: blood glucose <60 Miscellaneous (Ketorolac Tromethamine/Pf [Acuvail 0.45% Ophth Solution]) 1 each OP QID [facility] Stop: 08/21/17 08:59 Miscellaneous (Pravastatin Sodium [Pravachol]) 20 mg PO 1800 [facility] Stop: 08/21/17 17:59 Miscellaneous (Quetiapine Fumarate [Seroquel Xr]) 300 mg PO HS [facility] Stop: 08/21/17 20:59 Miscellaneous (Ranolazine [Ranexa]) 500 mg PO BID [facility] Stop: 08/21/17 08:59 Miscellaneous (Vte Chemical Prophylaxis Screen/ Admission) 1 [facility] PRN PRN PRN Reason: PROTOCOL Stop: 08/21/17 15:37 Pantoprazole Sodium (Protonix) 40 mg PO DAILY [facility] Stop: 08/21/17 08:59 Last Admin: 06/23/17 08:57 Dose: 40 mg Potassium Chloride (Potassium Chloride Elixir) 10 meq PO DAILY [facility] Stop: 08/21/17 08:59 Last Admin: 06/23/17 08:47 Dose: 10 meq Prednisolone Acetate (Pred Forte 1% Ophth Susp) 1 drop RIGHT EYE QID [facility] Stop: 08/21/17 08:59 Last Admin: 06/23/17 08:57 Dose: 1 drop Sitagliptin Phosphate (Januvia) 50 mg PO DAILY [facility] Stop: 08/21/17 08:59 Last Admin: 06/22/17 09:48 Dose: 50 mg Tamsulosin HCl (Flomax) 0.4 mg PO HS [facility] Stop: 08/21/17 20:59 Last Admin: 06/22/17 22:56 Dose: 0.4 mg Zinc Sulfate (Zinc Sulfate) 220 mg PO DAILY [facility] Stop: 08/21/17 08:59 Last Admin: 06/23/17 08:46 Dose: 220 mg General: Alert, No acute distress, Other (disoriented) HEENT: Atraumatic, Mucous membr. moist/pink Neck: Supple, +2 carotid pulse wo bruit Cardiovascular: Regular rate, Normal S1, Normal S2 Lungs: Clear to auscultation Abdomen: Bowel sounds, Soft, Obese Extremities: Edema Neurological: Sensation intact Skin: no Rash Psych/Mental Status: Other (paranoid schizo) Assessment/Plan - Problem List Patient Problems: All Active Problems LOWER EXTREMITIY EDEMA WITH WEIGHT GAIN (Acute) - Assessment Assessment: CHER on CAD Essential hypertension Hyponatremia resolved Peripheral arterial disease BPH with large residual volume Dyslipidemia History of CHF Status post CVA Obesity Paranoid schizophrenia - Plan Plan: Lab - Result Diagrams 06/23/17 05:40 06/23/17 05:40 Current Medications Acetaminophen (Tylenol) 650 mg PO Q4HR PRN PRN Reason: MILD PAIN OR TEMP >101 Stop: 08/20/17 22:19 Acetaminophen (Tylenol Extra Strength) 1,000 mg PO Q4HR PRN PRN Reason: MODERATE PAIN Stop: 08/20/17 22:19 Last Admin: 06/23/17 09:54 Dose: 1,000 mg Amlodipine Besylate (Norvasc) 10 mg PO DAILY [facility] Stop: 08/21/17 08:59 Last Admin: 06/23/17 08:45 Dose: 10 mg Ascorbic Acid (Vitamin C) 500 mg PO DAILY [facility] Stop: 08/21/17 08:59 Last Admin: 06/23/17 08:46 Dose: 500 mg Aspirin (Aspirin Chewable) 81 mg PO DAILY [facility] Stop: 08/21/17 08:59 Last Admin: 06/23/17 08:46 Dose: 81 mg Carvedilol (Coreg) 25 mg PO BID [facility] Stop: 08/21/17 08:59 Last Admin: 08/09/17 08:46 Dose: 25 mg Clopidogrel Bisulfate (Plavix) 75 mg PO DAILY [facility] Stop: 08/21/17 08:59 Last Admin: 06/23/17 08:46 Dose: 75 mg Docusate Sodium (Colace) 100 mg PO DAILY [facility] Stop: 08/21/17 08:59 Last Admin: 06/23/17 08:47 Dose: 100 mg Glimepiride (Amaryl) 4 mg PO DAILY [facility] Stop: 08/21/17 08:59 Last Admin: 06/23/17 08:46 Dose: 4 mg Heparin Sodium (Porcine) (Heparin) 5,000 units SUBQ Q12HR [facility] Stop: 08/21/17 20:59 Last Admin: 06/23/17 09:01 Dose: 5,000 units Sodium Chloride (Nacl 0.9%) 1,000 mls @ 75 mls/hr IV .[id number] [facility] Stop: 08/21/17 00:35 Last Admin: 06/23/17 07:45 Dose: Not Given Insulin Aspart (Novolog Insulin Sliding Scale) 0 units SUBQ Q6HR [facility] PRN Reason: Protocol Stop: 08/21/17 00:00 Last Admin: 06/23/17 12:27 Dose: Not Given Insulin Human Isoph/Insulin Regular (Novolin 70/30) 30 units SUBQ BID [facility] PRN Reason: Protocol Stop: 08/20/17 22:19 Last Admin: 06/23/17 08:47 Dose: 30 units Miscellaneous (Glucose Tablet) 4 g PO PRN PRN PRN Reason: blood glucose <60 Miscellaneous (Ketorolac Tromethamine/Pf [Acuvail 0.45% Ophth Solution]) 1 each OP QID [facility] Stop: 08/21/17 08:59 Miscellaneous (Pravastatin Sodium [Pravachol]) 20 mg PO 1800 [facility] Stop: 08/21/17 17:59 Miscellaneous (Quetiapine Fumarate [Seroquel Xr]) 300 mg PO HS [facility] Stop: 08/21/17 20:59 Miscellaneous (Ranolazine [Ranexa]) 500 mg PO BID [facility] Stop: 08/21/17 08:59 Miscellaneous (Vte Chemical Prophylaxis Screen/ Admission) 1 [facility] PRN PRN PRN Reason: PROTOCOL Stop: 08/21/17 15:37 Pantoprazole Sodium (Protonix) 40 mg PO DAILY [facility] Stop: 08/21/17 08:59 Last Admin: 06/23/17 08:57 Dose: 40 mg Potassium Chloride (Potassium Chloride Elixir) 10 meq PO DAILY [facility] Stop: 08/21/17 08:59 Last Admin: 06/23/17 08:47 Dose: 10 meq Prednisolone Acetate (Pred Forte 1% Ophth Susp) 1 drop RIGHT EYE QID [facility] Stop: 08/21/17 08:59 Last Admin: 06/23/17 08:57 Dose: 1 drop Sitagliptin Phosphate (Januvia) 50 mg PO DAILY [facility] Stop: 08/21/17 08:59 Last Admin: 06/22/17 09:48 Dose: 50 mg Tamsulosin HCl (Flomax) 0.4 mg PO HS [facility] Stop: 08/21/17 20:59 Last Admin: 06/22/17 22:56 Dose: 0.4 mg Zinc Sulfate (Zinc Sulfate) 220 mg PO DAILY [facility] Stop: 08/21/17 08:59 Last Admin: 06/23/17 08:46 Dose: 220 mg Continue IV hydration Blood sugar now under better control F/U electrolytes
--- NOTE | 2017-06-23 17:46 | Cardiology ---
06/23/[address] Meehan. M-MODE ECHOCARDIOGRAM: M-mode echo technically poor. 2D ECHO: Only structure visualized in apical 4 chamber view, which showed normal sized left ventricle with hypertrophy of the left ventricle. Left atrium normal. Right ventricular cavity, right atrium normal, no pericardial effusion, ejection fraction 55%. CONCLUSION: Technically poor echo, hypertrophy of the left ventricle, ejection fraction 55%. Doppler study showed trace triscuspid regurgitation. Right ventricular systolic pressure 20 mmHg. Technically poor echo. [facility]# [id number]
[2017-06-24] MEDS: INSULIN ASPART SLIDING SCALE 100 UNITS/ML UNIT SUBQ SCH ×3 (02:06→12:36)
[2017-06-24 07:24] LABS: ANION GAP 7.7 (7.0-16.0); BUN - UREA NITROGEN 16 mg/dL (7-25); BUN/CREATININE RATIO 12.3; CALCIUM SERUM 10.1 mg/dL (8.6-10.3); CARBON DIOXIDE 29.2 mEq/L (21.0-31.0); CHLORIDE 104 mEq/L (98-107); CREATININE - SERUM 1.3 mg/dL (0.7-1.3); GLUCOSE 197 mg/dL (70-105); POTASSIUM SERUM 3.9 mEq/L (3.5-5.1); SODIUM SERUM 137 mEq/L (136-145)
[2017-06-24] MEDS: Prednisolone 1% Ophth Susp 5 mL Bottle RIGHT EYE SCH ×2 (09:00→14:17)
[2017-06-24] MEDS: Pantoprazole 40 mg EC Tab PO SCH (10:00)
[2017-06-24] MEDS: Aspirin 81mg Chewable Tab PO SCH (10:00)
[2017-06-24] MEDS: Potassium Chloride Elixir 20 mEq /15 mL UDC PO SCH (10:03)
[2017-06-24] MEDS: INSULIN 70/30 100 UNITS/ML SUBQ SCH (10:05)
--- NOTE | 2017-06-24 11:02 | General Progress Note ---
Subjective - Review of Systems Events since last encounter: patient wake still confused Objective - Results Result Diagrams: 06/23/17 05:40 06/24/17 05:41 Recent Labs: Laboratory Last Values WBC 7.5 Th/cmm (4.8-10.8) 06/23/17 05:40 RBC 4.88 Mil/cmm (3.80-5.80) 06/23/17 05:40 Hgb 13.4 gm/dL (12.6-17.4) 06/23/17 05:40 Hct 41.1 % (39.0-49.0) 06/23/17 05:40 MCV 84.2 fl (80-99) 06/23/17 05:40 MCH 27.4 pg (27.0-31.0) 06/23/17 05:40 MCHC Differential 32.6 pg (28.0-36.0) 06/23/17 05:40 RDW 13.3 % (11.5-20.0) 06/23/17 05:40 Plt Count 235 Th/cmm (150-400) 06/23/17 05:40 MPV 9.1 fl 06/23/17 05:40 Neutrophils % 50.6 % (40.0-80.0) 06/23/17 05:40 Lymphocytes % 33.9 % (20.0-50.0) 06/23/17 05:40 Monocytes % 12.1 % (2.0-10.0) H 06/23/17 05:40 Eosinophils % 3.1 % (0.0-5.0) 06/23/17 05:40 Basophils % 0.3 % (0.0-2.0) 06/23/17 05:40 PT 9.7 SECONDS (9.5-11.5) 06/21/17 18:52 INR 0.93 (0.5-1.4) 06/21/17 18:52 PTT (Actin FS) 26.2 SECONDS (26.0-38.0) 06/21/17 18:52 Sodium 137 mEq/L (136-145) 06/24/17 05:41 Potassium 3.9 mEq/L (3.5-5.1) 06/24/17 05:41 Chloride 104 mEq/L (98-107) 06/24/17 05:41 Carbon Dioxide 29.2 mEq/L (21.0-31.0) 06/24/17 05:41 Anion Gap 7.7 (7.0-16.0) 06/24/17 05:41 BUN 16 mg/dL (7-25) 06/24/17 05:41 Creatinine 1.3 mg/dL (0.7-1.3) 06/24/17 05:41 Est GFR ( Amer) > 60.0 ml/min (>90) 06/24/17 05:41 Est GFR (Non-Af Amer) 58.7 ml/min 06/24/17 05:41 BUN/Creatinine Ratio 12.3 06/24/17 05:41 Glucose 197 mg/dL (70-105) H 06/24/17 05:41 POC Glucose 325 MG/DL (70 - 105) H 06/24/17 09:56 Hemoglobin A1c % 12.2 % (4.0-6.0) H 06/21/17 18:52 Uric Acid 6.4 mg/dL (4.4-7.6) 06/23/17 05:40 Calcium 10.1 mg/dL (8.6-10.3) 06/24/17 05:41 Phosphorus 3.0 mg/dL (2.5-5.0) 06/23/17 05:40 Magnesium 2.1 mg/dL (1.9-2.7) 06/23/17 05:40 Total Bilirubin 0.5 mg/dL (0.3-1.0) 06/23/17 05:40 AST 17 U/L (13-39) 06/23/17 05:40 ALT 7 U/L (7-52) 06/23/17 05:40 Alkaline Phosphatase 100 U/L (34-104) 06/23/17 05:40 Troponin I 0.01 ng/mL (0.01-0.05) 06/21/17 18:52 B-Natriuretic Peptide 48.2 pg/mL (5.0-100.0) 06/22/17 06:30 Total Protein 7.4 gm/dL (6.0-8.3) 06/23/17 05:40 Albumin 4.1 gm/dL (4.2-5.5) L 06/23/17 05:40 Globulin 3.3 gm/dL 06/23/17 05:40 Albumin/Globulin Ratio 1.2 (1.0-1.8) 06/23/17 05:40 Triglycerides 147 mg/dL (<150) 06/22/17 06:30 Cholesterol 134 mg/dL (<200) 06/22/17 06:30 LDL Cholesterol Direct 87 mg/dL (75-193) 06/22/17 06:30 HDL Cholesterol 38 mg/dL (23-92) 06/22/17 06:30 TSH 1.34 uIU/ml (0.34-5.60) 06/22/17 06:30 Urine Source CLEAN C 06/21/17 18:10 Urine Color PALE YELLOW 06/21/17 18:10 Urine Clarity CLEAR (CLEAR) 06/21/17 18:10 Urine pH 6.0 (4.6 - 8.0) 06/21/17 18:10 Ur Specific Kyle <= 1.005 (1.005-1.030) 06/21/17 18:10 Urine Protein NEGATIVE mg/dL (NEGATIVE) 06/21/17 18:10 Urine Glucose (UA) >=1000 mg/dL (NEGATIVE) H 06/21/17 18:10 Urine Ketones NEGATIVE mg/dL (NEGATIVE) 06/21/17 18:10 Urine Blood NEGATIVE (NEGATIVE) 06/21/17 18:10 Urine Nitrate NEGATIVE (NEGATIVE) 06/21/17 18:10 Urine Bilirubin NEGATIVE (NEGATIVE) 06/21/17 18:10 Urine Urobilinogen 0.2 E.U./dL (0.2 - 1.0) 06/21/17 18:10 Ur Leukocyte Esterase NEGATIVE (NEGATIVE) 06/21/17 18:10 Urine RBC 0-2 /hpf (0-5) H 06/21/17 18:10 Urine WBC 0-2 /hpf (0-5) 06/21/17 18:10 Ur Epithelial Cells RARE /lpf (FEW) 06/21/17 18:10 Urine Bacteria NONE SEEN /hpf (NONE SEEN) 06/21/17 18:10 RPR NONREACTIVE (NONREACTIVE) 06/21/17 18:52 - Physical Exam Vitals and I&O: Vital Signs Temp 97.8 F 06/23/17 20:00 Pulse 82 06/24/17 10:01 Resp 19 06/23/17 20:00 BP 145/88 06/24/17 10:01 Pulse Ox 97 06/23/17 20:00 Intake & Output 06/23/17 06/24/17 06/24/17 18:59 06:59 18:59 Intake Total 240 400 Output Total 1000 Balance 240 -600 Weight (lbs) 121.563 kg 121.563 kg Intake: Oral 240 400 Output: Urine 1000 Other: Stool Characteristics Soft Soft Active Medications: Current Medications Acetaminophen (Tylenol) 650 mg PO Q4HR PRN PRN Reason: MILD PAIN OR TEMP >101 Stop: 08/20/17 22:19 Acetaminophen (Tylenol Extra Strength) 1,000 mg PO Q4HR PRN PRN Reason: MODERATE PAIN Stop: 08/20/17 22:19 Last Admin: 06/23/17 09:54 Dose: 1,000 mg Amlodipine Besylate (Norvasc) 10 mg PO DAILY [facility] Stop: 08/21/17 08:59 Last Admin: 06/24/17 10:01 Dose: 10 mg Ascorbic Acid (Vitamin C) 500 mg PO DAILY [facility] Stop: 08/21/17 08:59 Last Admin: 06/24/17 10:00 Dose: 500 mg Aspirin (Aspirin Chewable) 81 mg PO DAILY [facility] Stop: 08/21/17 08:59 Last Admin: 06/24/17 10:00 Dose: 81 mg Carvedilol (Coreg) 25 mg PO BID [facility] Stop: 08/21/17 08:59 Last Admin: 06/23/17 18:40 Dose: 25 mg Clopidogrel Bisulfate (Plavix) 75 mg PO DAILY [facility] Stop: 08/21/17 08:59 Last Admin: 06/24/17 09:58 Dose: 75 mg Dextrose (Glutose 40%) 15 gm PO PRN PRN PRN Reason: BLOOD GLUCOSE LESS THAN 60 Docusate Sodium (Colace) 100 mg PO DAILY [facility] Stop: 08/21/17 08:59 Last Admin: 06/24/17 10:02 Dose: 100 mg Glimepiride (Amaryl) 4 mg PO DAILY [facility] Stop: 08/21/17 08:59 Last Admin: 06/24/17 10:04 Dose: 4 mg Heparin Sodium (Porcine) (Heparin) 5,000 units SUBQ Q12HR [facility] Stop: 08/21/17 20:59 Last Admin: 06/24/17 10:02 Dose: 5,000 units Sodium Chloride (Nacl 0.9%) 1,000 mls @ 75 mls/hr IV .[id number] [facility] Stop: 08/21/17 00:35 Last Admin: 06/23/17 07:45 Dose: Not Given Insulin Aspart (Novolog Insulin Sliding Scale) 0 units SUBQ Q6HR [facility] PRN Reason: Protocol Stop: 08/21/17 00:00 Last Admin: 06/24/17 02:06 Dose: Not Given Insulin Human Isoph/Insulin Regular (Novolin 70/30) 30 units SUBQ BID [facility] PRN Reason: Protocol Stop: 08/20/17 22:19 Last Admin: 06/24/17 10:05 Dose: 30 units Miscellaneous (Ketorolac Tromethamine/Pf [Acuvail 0.45% Ophth Solution]) 1 each OP QID [facility] Stop: 08/21/17 08:59 Miscellaneous (Quetiapine Fumarate [Seroquel Xr]) 300 mg PO HS [facility] Stop: 08/21/17 20:59 Miscellaneous (Ranolazine [Ranexa]) 500 mg PO BID [facility] Stop: 08/21/17 08:59 Miscellaneous (Vte Chemical Prophylaxis Screen/ Admission) 1 [facility] PRN PRN PRN Reason: PROTOCOL Stop: 08/21/17 15:37 Pantoprazole Sodium (Protonix) 40 mg PO DAILY [facility] Stop: 08/21/17 08:59 Last Admin: 06/24/17 10:00 Dose: 40 mg Potassium Chloride (Potassium Chloride Elixir) 10 meq PO DAILY [facility] Stop: 08/21/17 08:59 Last Admin: 06/24/17 10:03 Dose: 10 meq Prednisolone Acetate (Pred Forte 1% Ophth Susp) 1 drop RIGHT EYE QID [facility] Stop: 08/21/17 08:59 Last Admin: 06/23/17 21:00 Dose: 1 drop Simvastatin (Zocor) 10 mg PO 1800 [facility] Stop: 08/22/17 17:59 Last Admin: 06/23/17 18:40 Dose: 10 mg Sitagliptin Phosphate (Januvia) 50 mg PO DAILY [facility] Stop: 08/21/17 08:59 Last Admin: 06/24/17 09:58 Dose: 50 mg Tamsulosin HCl (Flomax) 0.4 mg PO HS [facility] Stop: 08/21/17 20:59 Last Admin: 06/23/17 21:00 Dose: 0.4 mg Zinc Sulfate (Zinc Sulfate) 220 mg PO DAILY [facility] Stop: 08/21/17 08:59 Last Admin: 06/23/17 08:46 Dose: 220 mg General: Alert, No acute distress, Other (disoriented) HEENT: Atraumatic, Mucous membr. moist/pink Neck: Supple, +2 carotid pulse wo bruit Cardiovascular: Regular rate, Normal S1, Normal S2 Lungs: Clear to auscultation Abdomen: Bowel sounds, Soft, Obese Extremities: Edema Neurological: Sensation intact Skin: no Rash Psych/Mental Status: Other (paranoid schizo) Assessment/Plan - Problem List Patient Problems: All Active Problems LOWER EXTREMITIY EDEMA WITH WEIGHT GAIN (Acute) - Plan Plan: cpm Nutritional Asmnt/Malnutr-PDOC - Dietary Evaluation Malnutrition Findings (Please click <Entered> for more info): Nutritional Asmnt/Malnutrition Start: 06/23/17 10: 54 Text: Status: Complete Freq: Document 06/23/17 18:15 [facility] (Rec: 06/23/17 18:25 [facility] [id number]) Nutritional Asmnt/Malnutrition Patient General Information Nutritional Screening Consult Diagnosis Acute on CHF, systolic heart failure rule out pneumonia Pertinent Medical Hx/Surgical Hx HTN, DM, bilateral BKA, CHF Subjective Information Nutrition Consult for uncontrolled DM received and completed. Pt is a 67-year-old male from [facility] admitted with chief complaint of increased swelling and uncontrolled DM. Pt was awake and alert during time of visit. Pt is noted with bilateral BKA; IBW adjusted. Pt reports UBW 250# and gained 25# of water wt in 2 months. No muscle or fat depletion assessed. Pt reports he was on a 2000 ADA diet and recently changed to 1800 ADA, Cardiac diet. RD explained pt 's current diet regimen. Pt is happy with current food and declined nutrition education. Pt reports uncontrolled DM associated with medication changes. Current Diet Order/ Nutrition Support CCHO-60 GM, low sodium Patient / S.O Can Pertinent Medications Vitamin C, Colace, Glimepiride , Novolog, Novolin 70/30, Protonix, KCl elixir, Zocor, Januvia, NaCl 0.9%, Zinc Sulfate Pertinent Labs (06/21) Glucose 434H, A1C 12.2H (06/22) Glucose 309H, POC Glucose 211H-390H (06/23) Na 135L (improved), fasting Glucose 177H, POC Glucose 192H Nutritional Hx/Data Height 1.68 m Height (Calculated Centimeters) 167.6 Current Weight (lbs) 121.563 kg Weight (Calculated Kilograms) 121.6 Weight (Calculated Grams) 703050.8 Usual body Weight (lbs) 250 % Usual Body Weight 107 [place] Body Weight 125 % [place] Body Weight 214 Recent Weight Change Yes Weight Status Morbidly Obese GI Symptoms GI Symptoms None Food Allergies No Usual diet at home CCHO, Cardiac Skin Integrity/Comment: Paco 15. Skin intact. Current %PO Good (75-100%) Estimated Nutritional Goals BEE in Kcals: Adj wt of IBW Calories/Kcals/Kg Based on adjusted IBW of 56.8 kg due to BKA, obesity Kcals Calculated 2100-5399 kcals/day (25-30 kcals/kg) Protein: Adj wt of IBW Protein g/kg: Based on adjusted IBW of 56.8 kg due to BKA, obesity Protein Calculated 57-68 gm/day (1-1.2 gm/kg) Fluid: ml Per MD/DO due to CHF Nutritional Problem 2. Problem Problem Altered nutrition-related laboratory value related to Etiology uncontrolled DM as evidenced by Signs/Symptoms: A1C 12.2% and elevated blood glucose x 3 days. 1. Problem Problem Malnutrition related to Etiology obesity as evidenced by Signs/Symptoms: BMI 43.3 kg/m2. Malnutrition Alert Protein-Calorie Malnutrition N/A Is there a minimum of two criteria No selected? Query Text:Check all the applicable criteria. A minimum of two criteria are recommended for diagnosis of either severe or non-severe malnutrition. Malnutrition Related to Morbid Obesity Malnutrition related to morbid obesity BMI> or equal to 40 Query Text:(Any 1 Criteria met) Malnutrition related to morbid obesity Yes Intervention/Recommendation Comments 1. Continue with current diet as it is adequate to meet estimated nutritional needs to promote glycemic control. FNS to honor food preferences. Pt declined diet education. 2. Consider daily wt to monitor fluid retention. Expected Outcomes/Goals Expected Outcomes/Goals 1. Have pt meet at least 75% of estimated nutritional needs for wt maintenance. 2. Blood glucose will trend towards desired parameters.
--- NOTE | 2017-06-24 13:08 | General Progress Note ---
Subjective - Review of Systems Service Date: 06/24/17 Subjective: Alert, comfortable, remains gregarious but confused Objective - Results Result Diagrams: 06/23/17 05:40 06/24/17 05:41 Recent Labs: Laboratory Last Values WBC 7.5 Th/cmm (4.8-10.8) 06/23/17 05:40 RBC 4.88 Mil/cmm (3.80-5.80) 06/23/17 05:40 Hgb 13.4 gm/dL (12.6-17.4) 06/23/17 05:40 Hct 41.1 % (39.0-49.0) 06/23/17 05:40 MCV 84.2 fl (80-99) 06/23/17 05:40 MCH 27.4 pg (27.0-31.0) 06/23/17 05:40 MCHC Differential 32.6 pg (28.0-36.0) 06/23/17 05:40 RDW 13.3 % (11.5-20.0) 06/23/17 05:40 Plt Count 235 Th/cmm (150-400) 06/23/17 05:40 MPV 9.1 fl 06/23/17 05:40 Neutrophils % 50.6 % (40.0-80.0) 06/23/17 05:40 Lymphocytes % 33.9 % (20.0-50.0) 06/23/17 05:40 Monocytes % 12.1 % (2.0-10.0) H 06/23/17 05:40 Eosinophils % 3.1 % (0.0-5.0) 06/23/17 05:40 Basophils % 0.3 % (0.0-2.0) 06/23/17 05:40 PT 9.7 SECONDS (9.5-11.5) 06/21/17 18:52 INR 0.93 (0.5-1.4) 06/21/17 18:52 PTT (Actin FS) 26.2 SECONDS (26.0-38.0) 06/21/17 18:52 Sodium 137 mEq/L (136-145) 06/24/17 05:41 Potassium 3.9 mEq/L (3.5-5.1) 06/24/17 05:41 Chloride 104 mEq/L (98-107) 06/24/17 05:41 Carbon Dioxide 29.2 mEq/L (21.0-31.0) 06/24/17 05:41 Anion Gap 7.7 (7.0-16.0) 06/24/17 05:41 BUN 16 mg/dL (7-25) 06/24/17 05:41 Creatinine 1.3 mg/dL (0.7-1.3) 06/24/17 05:41 Est GFR ( Amer) > 60.0 ml/min (>90) 06/24/17 05:41 Est GFR (Non-Af Amer) 58.7 ml/min 06/24/17 05:41 BUN/Creatinine Ratio 12.3 06/24/17 05:41 Glucose 197 mg/dL (70-105) H 06/24/17 05:41 POC Glucose 304 MG/DL (70 - 105) H 06/24/17 12:28 Hemoglobin A1c % 12.2 % (4.0-6.0) H 06/21/17 18:52 Uric Acid 6.4 mg/dL (4.4-7.6) 06/23/17 05:40 Calcium 10.1 mg/dL (8.6-10.3) 06/24/17 05:41 Phosphorus 3.0 mg/dL (2.5-5.0) 06/23/17 05:40 Magnesium 2.1 mg/dL (1.9-2.7) 06/23/17 05:40 Total Bilirubin 0.5 mg/dL (0.3-1.0) 06/23/17 05:40 AST 17 U/L (13-39) 06/23/17 05:40 ALT 7 U/L (7-52) 06/23/17 05:40 Alkaline Phosphatase 100 U/L (34-104) 06/23/17 05:40 Troponin I 0.01 ng/mL (0.01-0.05) 06/21/17 18:52 B-Natriuretic Peptide 48.2 pg/mL (5.0-100.0) 06/22/17 06:30 Total Protein 7.4 gm/dL (6.0-8.3) 06/23/17 05:40 Albumin 4.1 gm/dL (4.2-5.5) L 06/23/17 05:40 Globulin 3.3 gm/dL 06/23/17 05:40 Albumin/Globulin Ratio 1.2 (1.0-1.8) 06/23/17 05:40 Triglycerides 147 mg/dL (<150) 06/22/17 06:30 Cholesterol 134 mg/dL (<200) 06/22/17 06:30 LDL Cholesterol Direct 87 mg/dL (75-193) 06/22/17 06:30 HDL Cholesterol 38 mg/dL (23-92) 06/22/17 06:30 TSH 1.34 uIU/ml (0.34-5.60) 06/22/17 06:30 Urine Source CLEAN C 06/21/17 18:10 Urine Color PALE YELLOW 06/21/17 18:10 Urine Clarity CLEAR (CLEAR) 06/21/17 18:10 Urine pH 6.0 (4.6 - 8.0) 06/21/17 18:10 Ur Specific [place] <= 1.005 (1.005-1.030) 06/21/17 18:10 Urine Protein NEGATIVE mg/dL (NEGATIVE) 06/21/17 18:10 Urine Glucose (UA) >=1000 mg/dL (NEGATIVE) H 06/21/17 18:10 Urine Ketones NEGATIVE mg/dL (NEGATIVE) 06/21/17 18:10 Urine Blood NEGATIVE (NEGATIVE) 06/21/17 18:10 Urine Nitrate NEGATIVE (NEGATIVE) 06/21/17 18:10 Urine Bilirubin NEGATIVE (NEGATIVE) 06/21/17 18:10 Urine Urobilinogen 0.2 E.U./dL (0.2 - 1.0) 06/21/17 18:10 Ur Leukocyte Esterase NEGATIVE (NEGATIVE) 06/21/17 18:10 Urine RBC 0-2 /hpf (0-5) H 06/21/17 18:10 Urine WBC 0-2 /hpf (0-5) 06/21/17 18:10 Ur Epithelial Cells RARE /lpf (FEW) 06/21/17 18:10 Urine Bacteria NONE SEEN /hpf (NONE SEEN) 06/21/17 18:10 RPR NONREACTIVE (NONREACTIVE) 06/21/17 18:52 - Physical Exam Vitals and I&O: Vital Signs Temp 98.1 F 06/24/17 08:00 Pulse 82 06/24/17 10:01 Resp 20 06/24/17 08:00 BP 145/88 06/24/17 10:01 Pulse Ox 96 06/24/17 08:00 Intake & Output 06/23/17 06/24/17 06/24/17 18:59 06:59 18:59 Intake Total 240 400 Output Total 1000 Balance 240 -600 Weight (lbs) 121.563 kg 121.563 kg Intake: Oral 240 400 Output: Urine 1000 Other: Stool Characteristics Soft Soft Soft Active Medications: Current Medications Acetaminophen (Tylenol) 650 mg PO Q4HR PRN PRN Reason: MILD PAIN OR TEMP >101 Stop: 08/20/17 22:19 Acetaminophen (Tylenol Extra Strength) 1,000 mg PO Q4HR PRN PRN Reason: MODERATE PAIN Stop: 08/20/17 22:19 Last Admin: 06/23/17 09:54 Dose: 1,000 mg Amlodipine Besylate (Norvasc) 10 mg PO DAILY KWAME Stop: 08/21/17 08:59 Last Admin: 06/24/17 10:01 Dose: 10 mg Ascorbic Acid (Vitamin C) 500 mg PO DAILY KWAME Stop: 08/21/17 08:59 Last Admin: 06/24/17 10:00 Dose: 500 mg Aspirin (Aspirin Chewable) 81 mg PO DAILY KWAME Stop: 08/21/17 08:59 Last Admin: 06/24/17 10:00 Dose: 81 mg Carvedilol (Coreg) 25 mg PO BID KWAME Stop: 08/21/17 08:59 Last Admin: 06/24/17 10:00 Dose: 25 mg Clopidogrel Bisulfate (Plavix) 75 mg PO DAILY KWAME Stop: 08/21/17 08:59 Last Admin: 06/24/17 09:58 Dose: 75 mg Dextrose (Glutose 40%) 15 gm PO PRN PRN PRN Reason: BLOOD GLUCOSE LESS THAN 60 Docusate Sodium (Colace) 100 mg PO DAILY KWAME Stop: 08/21/17 08:59 Last Admin: 06/24/17 10:02 Dose: 100 mg Glimepiride (Amaryl) 4 mg PO DAILY KWAME Stop: 08/21/17 08:59 Last Admin: 06/24/17 10:04 Dose: 4 mg Heparin Sodium (Porcine) (Heparin) 5,000 units SUBQ Q12HR KWAME Stop: 08/21/17 20:59 Last Admin: 06/24/17 10:02 Dose: 5,000 units Sodium Chloride (Nacl 0.9%) 1,000 mls @ 75 mls/hr IV .[id number] KWAME Stop: 08/21/17 00:35 Last Admin: 06/23/17 07:45 Dose: Not Given Insulin Aspart (Novolog Insulin Sliding Scale) 0 units SUBQ Q6HR KWAME PRN Reason: Protocol Stop: 08/21/17 00:00 Last Admin: 06/24/17 12:36 Dose: 8 units Insulin Human Isoph/Insulin Regular (Novolin 70/30) 30 units SUBQ BID KWAME PRN Reason: Protocol Stop: 08/20/17 22:19 Last Admin: 06/24/17 10:05 Dose: 30 units Miscellaneous (Ketorolac Tromethamine/Pf [Acuvail 0.45% Ophth Solution]) 1 each OP QID KWAME Stop: 08/21/17 08:59 Miscellaneous (Quetiapine Fumarate [Seroquel Xr]) 300 mg PO HS KWAME Stop: 08/21/17 20:59 Miscellaneous (Ranolazine [Ranexa]) 500 mg PO BID KWAME Stop: 08/21/17 08:59 Miscellaneous (Vte Chemical Prophylaxis Screen/ Admission) 1 ea PRN PRN PRN Reason: PROTOCOL Stop: 08/21/17 15:37 Pantoprazole Sodium (Protonix) 40 mg PO DAILY KWAME Stop: 08/21/17 08:59 Last Admin: 06/24/17 10:00 Dose: 40 mg Potassium Chloride (Potassium Chloride Elixir) 10 meq PO DAILY KWAME Stop: 08/21/17 08:59 Last Admin: 06/24/17 10:03 Dose: 10 meq Prednisolone Acetate (Pred Forte 1% Ophth Susp) 1 drop RIGHT EYE QID KWAME Stop: 08/21/17 08:59 Last Admin: 06/23/17 21:00 Dose: 1 drop Simvastatin (Zocor) 10 mg PO 1800 KWAME Stop: 08/22/17 17:59 Last Admin: 06/23/17 18:40 Dose: 10 mg Sitagliptin Phosphate (Januvia) 50 mg PO DAILY KWAME Stop: 08/21/17 08:59 Last Admin: 08/10/17 12:45 Dose: 50 mg Tamsulosin HCl (Flomax) 0.4 mg PO HS KWAME Stop: 08/21/17 20:59 Last Admin: 06/23/17 21:00 Dose: 0.4 mg Zinc Sulfate (Zinc Sulfate) 220 mg PO DAILY KWAME Stop: 08/21/17 08:59 Last Admin: 06/24/17 12:45 Dose: 220 mg General: Alert, No acute distress, Other (disoriented) HEENT: Atraumatic, Mucous membr. moist/pink Neck: Supple, +2 carotid pulse wo bruit Cardiovascular: Regular rate, Normal S1, Normal S2 Lungs: Clear to auscultation Abdomen: Bowel sounds, Soft, Obese Extremities: Edema Neurological: Sensation intact Skin: no Rash Psych/Mental Status: Other (paranoid schizo) Assessment/Plan - Problem List Patient Problems: All Active Problems LOWER EXTREMITIY EDEMA WITH WEIGHT GAIN (Acute) - Assessment Assessment: CHER on CAD Essential hypertension Hyponatremia resolved Peripheral arterial disease BPH with large residual volume Dyslipidemia History of CHF Status post CVA Obesity Paranoid schizophrenia - Plan Plan: Lab - Result Diagrams 06/23/17 05:40 06/23/17 05:40 Current Medications Acetaminophen (Tylenol) 650 mg PO Q4HR PRN PRN Reason: MILD PAIN OR TEMP >101 Stop: 08/20/17 22:19 Acetaminophen (Tylenol Extra Strength) 1,000 mg PO Q4HR PRN PRN Reason: MODERATE PAIN Stop: 08/20/17 22:19 Last Admin: 06/23/17 09:54 Dose: 1,000 mg Amlodipine Besylate (Norvasc) 10 mg PO DAILY KWAME Stop: 08/21/17 08:59 Last Admin: 06/23/17 08:45 Dose: 10 mg Ascorbic Acid (Vitamin C) 500 mg PO DAILY KWAME Stop: 08/21/17 08:59 Last Admin: 06/23/17 08:46 Dose: 500 mg Aspirin (Aspirin Chewable) 81 mg PO DAILY KWAME Stop: 08/21/17 08:59 Last Admin: 06/23/17 08:46 Dose: 81 mg Carvedilol (Coreg) 25 mg PO BID KWAME Stop: 08/21/17 08:59 Last Admin: 06/23/17 08:46 Dose: 25 mg Clopidogrel Bisulfate (Plavix) 75 mg PO DAILY KWAME Stop: 08/21/17 08:59 Last Admin: 06/23/17 08:46 Dose: 75 mg Docusate Sodium (Colace) 100 mg PO DAILY KWAME Stop: 08/21/17 08:59 Last Admin: 06/23/17 08:47 Dose: 100 mg Glimepiride (Amaryl) 4 mg PO DAILY KWAME Stop: 08/21/17 08:59 Last Admin: 06/23/17 08:46 Dose: 4 mg Heparin Sodium (Porcine) (Heparin) 5,000 units SUBQ Q12HR KWAME Stop: 08/21/17 20:59 Last Admin: 06/23/17 09:01 Dose: 5,000 units Sodium Chloride (Nacl 0.9%) 1,000 mls @ 75 mls/hr IV .[id number] KWAME Stop: 08/21/17 00:35 Last Admin: 06/23/17 07:45 Dose: Not Given Insulin Aspart (Novolog Insulin Sliding Scale) 0 units SUBQ Q6HR KWAME PRN Reason: Protocol Stop: 08/21/17 00:00 Last Admin: 06/23/17 12:27 Dose: Not Given Insulin Human Isoph/Insulin Regular (Novolin 70/30) 30 units SUBQ BID KWAME PRN Reason: Protocol Stop: 08/20/17 22:19 Last Admin: 06/23/17 08:47 Dose: 30 units Miscellaneous (Glucose Tablet) 4 g PO PRN PRN PRN Reason: blood glucose <60 Miscellaneous (Ketorolac Tromethamine/Pf [Acuvail 0.45% Ophth Solution]) 1 each OP QID KWAME Stop: 08/21/17 08:59 Miscellaneous (Pravastatin Sodium [Pravachol]) 20 mg PO 1800 KWAME Stop: 08/21/17 17:59 Miscellaneous (Quetiapine Fumarate [Seroquel Xr]) 300 mg PO HS KWAME Stop: 08/21/17 20:59 Miscellaneous (Ranolazine [Ranexa]) 500 mg PO BID KWAME Stop: 08/21/17 08:59 Miscellaneous (Vte Chemical Prophylaxis Screen/ Admission) 1 [facility] PRN PRN PRN Reason: PROTOCOL Stop: 08/21/17 15:37 Pantoprazole Sodium (Protonix) 40 mg PO DAILY KWAME Stop: 08/21/17 08:59 Last Admin: 06/23/17 08:57 Dose: 40 mg Potassium Chloride (Potassium Chloride Elixir) 10 meq PO DAILY KWAME Stop: 08/21/17 08:59 Last Admin: 06/23/17 08:47 Dose: 10 meq Prednisolone Acetate (Pred Forte 1% Ophth Susp) 1 drop RIGHT EYE QID KWAME Stop: 08/21/17 08:59 Last Admin: 06/23/17 08:57 Dose: 1 drop Sitagliptin Phosphate (Januvia) 50 mg PO DAILY KWAME Stop: 08/21/17 08:59 Last Admin: 06/22/17 09:48 Dose: 50 mg Tamsulosin HCl (Flomax) 0.4 mg PO HS KWAME Stop: 08/21/17 20:59 Last Admin: 06/22/17 22:56 Dose: 0.4 mg Zinc Sulfate (Zinc Sulfate) 220 mg PO DAILY [facility] Stop: 08/21/17 08:59 Last Admin: 06/23/17 08:46 Dose: 220 mg Continue IV hydration Blood sugar now under better control Na has corrected & kidney fnc improved agree w/ dc to ecf Nutritional Asmnt/Malnutr-PDOC - Dietary Evaluation Malnutrition Findings (Please click <Entered> for more info): Nutritional Asmnt/Malnutrition Start: 06/23/17 10: 54 Text: Status: Complete Freq: Document 06/23/17 18:15 [facility] (Rec: 06/23/17 18:25 [facility] [id number]) Nutritional Asmnt/Malnutrition Patient General Information Nutritional Screening Consult Diagnosis Acute on CHF, systolic heart failure rule out pneumonia Pertinent Medical Hx/Surgical Hx HTN, DM, bilateral BKA, CHF Subjective Information Nutrition Consult for uncontrolled DM received and completed. Pt is a 67-year-old male from [facility] admitted with chief complaint of increased swelling and uncontrolled DM. Pt was awake and alert during time of visit. Pt is noted with bilateral BKA; IBW adjusted. Pt reports UBW 250# and gained 25# of water wt in 2 months. No muscle or fat depletion assessed. Pt reports he was on a 1999 ADA diet and recently changed to 1800 ADA, Cardiac diet. RD explained pt 's current diet regimen. Pt is happy with current food and declined nutrition education. Pt reports uncontrolled DM associated with medication changes. Current Diet Order/ Nutrition Support CCHO-60 GM, low sodium Patient / S.O Can Pertinent Medications Vitamin C, Colace, Glimepiride , Novolog, Novolin 70/30, Protonix, KCl elixir, Zocor, Januvia, NaCl 0.9%, Zinc Sulfate Pertinent Labs (06/21) Glucose 434H, A1C 12.2H (06/22) Glucose 309H, POC Glucose 211H-390H (06/23) Na 135L (improved), fasting Glucose 177H, POC Glucose 192H Nutritional Hx/Data Height 1.68 m Height (Calculated Centimeters) 167.6 Current Weight (lbs) 121.563 kg Weight (Calculated Kilograms) 121.6 Weight (Calculated Grams) 197759.8 Usual body Weight (lbs) 250 % Usual Body Weight 107 [place] Body Weight 125 % [place] Body Weight 214 Recent Weight Change Yes Weight Status Morbidly Obese GI Symptoms GI Symptoms None Food Allergies No Usual diet at home CCHO, Cardiac Skin Integrity/Comment: Paco 15. Skin intact. Current %PO Good (75-100%) Estimated Nutritional Goals BEE in Kcals: Adj wt of IBW Calories/Kcals/Kg Based on adjusted IBW of 56.8 kg due to BKA, obesity Kcals Calculated 8682-4572 kcals/day (25-30 kcals/kg) Protein: Adj wt of IBW Protein g/kg: Based on adjusted IBW of 56.8 kg due to BKA, obesity Protein Calculated 57-68 gm/day (1-1.2 gm/kg) Fluid: ml Per MD/DO due to CHF Nutritional Problem 2. Problem Problem Altered nutrition-related laboratory value related to Etiology uncontrolled DM as evidenced by Signs/Symptoms: A1C 12.2% and elevated blood glucose x 3 days. 1. Problem Problem Malnutrition related to Etiology obesity as evidenced by Signs/Symptoms: BMI 43.3 kg/m2. Malnutrition Alert Protein-Calorie Malnutrition N/A Is there a minimum of two criteria No selected? Query Text:Check all the applicable criteria. A minimum of two criteria are recommended for diagnosis of either severe or non-severe malnutrition. Malnutrition Related to Morbid Obesity Malnutrition related to morbid obesity BMI> or equal to 40 Query Text:(Any 1 Criteria met) Malnutrition related to morbid obesity Yes Intervention/Recommendation Comments 1. Continue with current diet as it is adequate to meet estimated nutritional needs to promote glycemic control. FNS to honor food preferences. Pt declined diet education. 2. Consider daily wt to monitor fluid retention. Expected Outcomes/Goals Expected Outcomes/Goals 1. Have pt meet at least 75% of estimated nutritional needs for wt maintenance. 2. Blood glucose will trend towards desired parameters.
--- NOTE | 2017-06-26 03:34 | Discharge Summary ---
DATE OF DISCHARGE: 06/24/2017 The patient came from [place]. The patient is known to have history of hypertension, history of diabetes, history of peripheral vascular disease, history of bilateral below knee amputation and also he has an ulceration on his right below stump, and the patient was seen in the emergency room and had uncontrolled diabetes, and the patient was admitted and the patient also known to have history of CHF. REVIEW OF SYSTEMS: complaining of right stump pain and both stump swelling and was complaining of ulceration in the right stump. PAST MEDICAL HISTORY: As enumerated above. PAST SURGICAL HISTORY: Bilateral below knee amputation. The patient was admitted for acute on chronic congestive heart failure, rule out pneumonia. He has had bilateral stump swelling, rule out cellulitis. History of diabetes, history of bilateral below knee amputation, and history of peripheral vascular disease, and history of hypertension. The patient was given antibiotics. The patient's blood sugars are controlled. I had ID doctor, Dr. Srikanth Fuentes see the patient. The patient improved and the patient is in stable condition. On 06/24/2017, the patient was discharged back to [place] where I will be following the patient. MEDICATION: See the reconciliation sheet. ACTIVITY: The patient wheelchair and also physical therapy for his upper body should be instituted and I will be following the patient there. CONDITION ON DISCHARGE: Stable. JOB# [id number] LAINE
== END 2017-06-24 16:00 | disposition home or self-care (01) | DRG 682 ==
LOC: ER 18:18 → MSI 20:15
PROVIDERS: ADMIT Internal Medicine; ATTEND Internal Medicine
DX: N17.9 Acute kidney failure, unspecified (principal); J18.9 Pneumonia, unspecified organism; I50.43 Acute on chronic combined systolic (congestive) and diastolic (congestive) heart failure; T87.43 Infection of amputation stump, right lower extremity; E11.21 Type 2 diabetes mellitus with diabetic nephropathy; I13.0 Hypertensive heart and chronic kidney disease with heart failure and stage 1 through stage 4 chronic kidney disease, or unspecified chronic kidney disease; E87.1 Hypo-osmolality and hyponatremia; L03.115 Cellulitis of right lower limb; Z68.41 Body mass index [BMI] 40.0-44.9, adult; F20.0 Paranoid schizophrenia; T87.44 Infection of amputation stump, left lower extremity; L03.116 Cellulitis of left lower limb; N18.2 Chronic kidney disease, stage 2 (mild); N40.0 Benign prostatic hyperplasia without lower urinary tract symptoms; E78.5 Hyperlipidemia, unspecified; F17.210 Nicotine dependence, cigarettes, uncomplicated; F31.9 Bipolar disorder, unspecified; E11.319 Type 2 diabetes mellitus with unspecified diabetic retinopathy without macular edema; E11.51 Type 2 diabetes mellitus with diabetic peripheral angiopathy without gangrene; E66.01 Morbid (severe) obesity due to excess calories; Y83.8 Other surgical procedures as the cause of abnormal reaction of the patient, or of later complication, without mention of misadventure at the time of the procedure; Y92.89 Other specified places as the place of occurrence of the external cause; Z89.512 Acquired absence of left leg below knee; Z89.511 Acquired absence of right leg below knee; Z88.0 Allergy status to penicillin; Z86.73 Personal history of transient ischemic attack (TIA), and cerebral infarction without residual deficits; Z98.49 Cataract extraction status, unspecified eye
CPT/HCPCS: 36415-UA; 71010-TC; 76770-TC; 80048-TC; 80053-TC; 80061-TC; 81001-TC; 82533-90; 82948-90; 83036-90; 83735-TC; 83880-TC; 84100-TC; 84443-TC; 84484-TC; 84550-TC; 85025-TC; 85610-TC; 85730-TC; 86592-TC; 87086-90; 93005; J1644; J1815; J2650; J7030; Z7610

== ENCOUNTER 2017-11-25 12:20 | Inpatient (IN) | payer MEDICARE, MEDICAID ==
--- NOTE | 2017-11-25 12:44 | ED Physician Chart ---
ED Chief Complaint/HPI - Patient Information Date Seen:: 11/25/17 Time Seen:: 12:25 Chief Complaint:: elevated blood sugar History of Present Illness:: Patient sent from his residential facility for elevated blood sugar, increased peripheral edema, diabetic ulcer and aggressive behavior. Patient denies abdominal pain Allergies:: Allergies Allergy/AdvReac Type Severity Reaction Status Date / Time Penicillins Allergy Verified 06/21/17 18:22 Historian:: Patient, EMS Review:: Nurse's Note Reviewed ED Review of Systems - Review of Systems General/Constitutional: No fever, No chills Skin: Skin lesions Head: No headache Eyes: No loss of vision ENT: No earache Neck: No neck pain Cardio Vascular: No chest pain, No palpitations Pulmonary: No SOB GI: No nausea, No vomiting, No diarrhea G/U: No dysuria Musculoskeletal: No bone or joint pain Endocrine: No polyuria Psychiatric: Prior psych history Hematopoietic: No bruising Allergic/Immuno: No urticaria Neurological: No syncope ED Past Medical History - Past Medical History Past Medical History: HTN, DM, CAD, CHF, CVA/TIA, Other (hyponatremia) Family History: None Social History: Smoker, Other (quit drinking alcohol 18 years ago) Surgical History: other (bilateral BB amputations) Psychiatricy History: Schizophrenia Medication: None Family Medical History - Family Member Mother History Unknown: Yes ED Physical Exam - Physical Examination General/Constitutional: Well-developed, well-nourished, Alert, No distress Other Gen/Cons comments:: States date is November 24 Head: Atraumatic Eyes: Lids, conjuctiva normal, PERRL Other Skin comments:: 1 cm stage II decubitus stump left leg. ENMT: External ears, nose nl, Nasal exam nl, Lips, teeth, gums nl Other ENMT comments:: No upper teeth present Neck: No nuchal rigidity Respiratory: Nl effort/Exclusion, Clear to Auscultation, No Wheeze/Rhonchi/Rales Cardio Vascular: RRR, No murmur, gallop, rubs Other GI comments:: Decreased bowel sounds; abdomen firm; nontender Other Extremities comments:: Bilateral below-knee amputations Neuro/Psych: Alert/oriented ED Labs/Radiology/EKG Results - Lab Results Results: Laboratory Results - last 24 hr 11/25/17 11/25/17 11/25/17 12:35 12:35 12:35 WBC 6.0 RBC 5.08 Hgb 13.7 Hct 41.6 MCV 82.0 MCH 26.9 L MCHC Differential 32.8 RDW 13.6 Plt Count 259 MPV 8.6 Neutrophils % 49.2 Lymphocytes % 33.4 Monocytes % 11.3 H Eosinophils % 5.8 H Basophils % 0.3 Sodium 126 L Potassium 3.7 Chloride 92 L Carbon Dioxide 26.7 Anion Gap 11.0 BUN 14 Creatinine 1.2 Est GFR ( Amer) > 60.0 Est GFR (Non-Af Amer) > 60.0 BUN/Creatinine Ratio 11.7 Glucose 297 H Hemoglobin A1c % Calcium 9.5 Troponin I B-Natriuretic Peptide 39.1 11/25/17 11/25/17 12:35 12:35 WBC RBC Hgb Hct MCV MCH MCHC Differential RDW Plt Count MPV Neutrophils % Lymphocytes % Monocytes % Eosinophils % Basophils % Sodium Potassium Chloride Carbon Dioxide Anion Gap BUN Creatinine Est GFR ( Amer) Est GFR (Non-Af Amer) BUN/Creatinine Ratio Glucose Hemoglobin A1c % 14.0 H Calcium Troponin I 0.01 B-Natriuretic Peptide - Radiology Results Results: CXR negative - EKG Interpretations Rate & Rhythm: normal sinus rhythm with a rate of 80 [place]: normal axis Comments:: Concave ST elevation in leads V1 through V3 ED Septic Shock - . Is Septic Shock (SBP<90, OR Lactate>4 mmol\L) present?: No ED Reassessment (Disposition) - Reassessment Reassessment Condition:: Unchanged - Diagnosis Diagnosis:: decubitus left leg; diabetes; hyperglycemia - Patient Disposition Admitted to:: Med/Surg Spoke to:: Bob Meehan Admitting Medical Physician:: Bob Meehan Condition at Disposition:: Stable, Unchanged
[2017-11-25 12:57] LABS: % BASOPHILS 0.3 % (0.0-2.0); % EOSINOPHILS 5.8 % (0.0-5.0); % LYMPHOCYTES 33.4 % (20.0-50.0); % MONOCYTES 11.3 % (2.0-10.0); % NEUTROPHILS 49.2 % (40.0-80.0); EOSINOPHILE ABSOLUTE 0.3 Th/cmm (0.1-0.4); HEMATOCRIT 41.6 % (41.0-60); HEMOGLOBIN 13.7 gm/dL (12-16); MEAN CORPUSCULAR HEMOGLOBIN 26.9 pg (27.0-31.0); MEAN CORPUSCULAR HGB CONC 32.8 pg (28.0-36.0); MEAN PLATELET VOLUME 8.6 fl; MONOCYTE ABSOLUTE 0.7 Th/cmm (0.3-1.0); PLATELET COUNT 259 Th/cmm (150-400); RED BLOOD COUNT 5.08 Mil/cmm (3.80-5.80); RED CELL DISTRIBUTION WIDTH 13.6 % (11.5-20.0)
[2017-11-25 13:16] LABS: BUN - UREA NITROGEN 14 mg/dL (7-25); CALCIUM SERUM 9.5 mg/dL (8.6-10.3); CARBON DIOXIDE 26.7 mEq/L (21.0-31.0); CHLORIDE 92 mEq/L (98-107); CREATININE - SERUM 1.2 mg/dL (0.7-1.3); GFR AFRICAN-AMERICAN > 60.0 ml/min (>90); GFR NON AFRICAN-AMERICAN > 60.0 ml/min; GLUCOSE 297 mg/dL (70-105); POTASSIUM SERUM 3.7 mEq/L (3.5-5.1); SODIUM SERUM 126 mEq/L (136-145)
--- NOTE | 2017-11-25 14:00 | Diagnostic Imaging Report ---
Portable chest x-ray HISTORY: Shortness of breath There is a poor inspiration. Allowing for this factor, the heart size appears to be within normal limits. No focal pulmonary processes. No hilar or mediastinal abnormalities. IMPRESSION: 1. No acute abnormalities
[2017-11-25 14:48] LABS: URINE MICROSCOPIC INDICATED? YES; URINE SOURCE RANDOM
[2017-11-25 14:50] LABS: URINE BILIRUBIN NEGATIVE (NEGATIVE); URINE BLOOD NEGATIVE (NEGATIVE); URINE GLUCOSE (UA) 500 mg/dL (NEGATIVE); URINE KETONE NEGATIVE (NEGATIVE); URINE LEUKOCYTE ESTERASE NEGATIVE (NEGATIVE); URINE NITRATE NEGATIVE (NEGATIVE); URINE PH 6.5 (4.6 - 8.0); URINE PROTEIN NEGATIVE (NEGATIVE); URINE UROBILINOGEN 0.2 E.U./dL (0.2 - 1.0)
[2017-11-25 15:11] LABS: URINE CLARITY CLEAR (CLEAR); URINE COLOR YELLOW
[2017-11-25 15:14] LABS: URINE EPITHELIAL CELLS OCCASIONAL /lpf (FEW); URINE RBC 0-2 /hpf (0-5); URINE WBC 0-2 /hpf (0-5)
[2017-11-25 15:15] LABS: URINE BACTERIA FEW /hpf (NONE SEEN)
[2017-11-25] MEDS ORDERED: Acetaminophen 500 MG TAB PO PRN (16:07)
--- NOTE | 2017-11-25 16:59 | History & Physical ---
ADMIT DATE: 11/25/2017 HISTORY OF PRESENT ILLNESS: The patient is a very well known to me. The patient is known to have history of hypertension, diabetes, history of severe peripheral vascular disease status post bilateral below-knee amputation, history of CVA in the past and history of CHF, cardiomegaly, cardiomyopathy and the patient also known to have underlying schizophrenia. The patient lives at [facility]. The patient has been having very consistent high blood sugar and also was having ulceration on the stump, which is not healing. The patient was seen in the Emergency Room where Dr. Granger saw the patient and decided that the patient needs to be admitted for better control of his blood sugar as well as the care of wound care. REVIEW OF SYSTEMS: No fever, no chills, no headache, no loss of vision, no neck pain, no other problem. PAST MEDICAL HISTORY: As enumerated above. PAST SURGICAL HISTORY: Bilateral below knee amputation. PSYCHIATRIC HISTORY: History of schizophrenia. MEDICATIONS: See the reconciliation sheet. PHYSICAL EXAMINATION: GENERAL: The patient is a well developed, well nourished patient complaining of some shortness of breath. HEAD: Normal. ENT: Normal. LUNGS: Bilateral rales. CARDIOVASCULAR SYSTEM: S1, S2 heard. ABDOMEN: Soft. Bowel sounds are heard. EXTREMITIES: Bilateral below knee amputation ulceration noted. LABORATORY DATA: White count is 6.0, hemoglobin 13.6. Electrolytes are normal. Hemoglobin A1c was very high at 14 indicating his blood sugar is more than 350 all the time. DIAGNOSES: Severe diabetes mellitus, very uncontrolled diabetes, history of hyperglycemia and decubiti on the legs and also some bilateral stumps, history of CVA, history of coronary artery disease, history of hypertension, history of CHF, cardiomyopathy. PLAN: The patient is going to be admitted and I will go ahead and have Dr. Fuentes, ID consult will have wound care. I will control his blood sugar, put him on a high dose sliding scale. We will also call Cardiology, Dr. Cristhian Fuentes, to see the patient and I will follow the patient. JOB# [id number]
[2017-11-25] MEDS ORDERED: Non-Formulary Item 1 EA (Carvedilol [Carvedilol] 25 MG) PO SCH (17:00)
[2017-11-25] MEDS ORDERED: Non-Formulary Item 1 EA (Ranolazine [Ranexa] 500 MG) PO SCH (17:00)
[2017-11-25] MEDS ORDERED: KETOROLAC TROMETHAMINE OP SCH (17:00)
[2017-11-25] MEDS ORDERED: [UNRECOGNIZED DRUG - OTHER] OP SCH (17:00)
[2017-11-25] MEDS ORDERED: PRAVASTATIN SODIUM 20 MG PO SCH (18:00)
[2017-11-25] MEDS: INSULIN 70/30 100 UNITS/ML SUBQ SCH (18:02)
[2017-11-25] MEDS: Prednisolone 1% Ophth Susp 5 mL Bottle RIGHT EYE SCH ×2 (18:50→21:18)
[2017-11-25] MEDS ORDERED: Pneumococcal Vaccine 0.5 mL Vial IM ONE (20:11)
[2017-11-25] MEDS ORDERED: QUETIAPINE FUMARATE 300 MG PO SCH (21:00)
[2017-11-25] MEDS: Sodium Chloride 0.9% 1,000 ML IV SCH (21:21)
--- NOTE | 2017-11-26 08:33 | Consultation ---
DATE OF CONSULTATION: 11/26/2017 AGE: 67. SEX: Male. PHYSICIAN: Dr. Meehan. DRY CLEANER PRESSER: Dr. Marte. TYPE OF THE REPORT: Psychiatric consult. REASON FOR THE CONSULT: Evaluating psychotropic medications. HISTORY OF PRESENT ILLNESS: The patient is a 67-year-old male with history of what seems to be a schizoaffective disorder. The patient was admitted to the hospital because of ulceration of the stump. The patient has bilateral above-knee amputation and the patient was admitted because of ulceration of the stones. Chart reviewed and patient interviewed. Also discussed the patient's condition with the staff and reviewed records and labs. The patient was argumentative and was kept rambling about his intelligence and about his family and about his business. Also seems to have grandiose delusions about how much money he made on the past and that he had found jaclyn that is worth 25 million dollars and that he has a house without taxes and he kept jumping from one topic to the other. The patient also was at times seems to be threatening. As far as medications and as far as he was taking Seroquel and he is still taking Seroquel and he was not clear on that area, but he admitted to have psychiatric treatment on the past. The patient also mentioned that he has a conservator and the horse show judge that asking him to take Seroquel and that he has been taking 300-400 mg at bedtime. PAST PSYCHIATRIC HISTORY: As mentioned above. PAST MEDICAL HISTORY: The patient has history of diabetes mellitus, hypertension and also history of CVA and congestive heart failure. Also, status post bilateral above knee amputation. MENTAL STATUS EXAM: The patient appears his stated age. Anxious. Irritable mood. Flat affect. Pressured speech. Thought processes are circumstantial and tangential with occasional flight of ideas. The patient did not answer questions regarding hallucinations or delusions, but seems to be suspicious and paranoid. The patient did not answer questions regarding suicide or homicide. The patient is alert and oriented to situation, place, person. Intact immediate, recent and remote memories. Poor insight and poor judgment. Seems to be of average intelligence based on his verbal ability. ASSESSMENT: Primary diagnoses: Schizoaffective disorder, bipolar type, with psychotic features, moderate to severe. TREATMENT PLAN: We will monitor the patient's behavior closely. Also, we will work on his psychosis. Also, we will start Seroquel 300 mg at bedtime. Thanks to Dr. Meehan and we will follow up with you. JOB# [id number]
[2017-11-26] MEDS ORDERED: AMINO ACIDS PO SCH (09:00)
[2017-11-26] MEDS ORDERED: PROTEIN HYDROLYS PO SCH (09:00)
[2017-11-26] MEDS: Potassium Chloride Elixir 20 mEq /15 mL UDC PO SCH (10:23)
[2017-11-26] MEDS: Pantoprazole 40 mg EC Tab PO SCH (10:25)
[2017-11-26] MEDS: Aspirin 81mg Chewable Tab PO SCH (10:26)
[2017-11-26] MEDS: INSULIN 70/30 100 UNITS/ML SUBQ SCH ×2 (10:28→17:08)
[2017-11-26] MEDS: Sodium Chloride 0.9% 1,000 ML IV SCH (10:37)
[2017-11-26] MEDS: Prednisolone 1% Ophth Susp 5 mL Bottle RIGHT EYE SCH ×4 (12:30→21:16)
[2017-11-26 13:38] LABS: BUN - UREA NITROGEN 17 mg/dL (7-25); CALCIUM SERUM 9.7 mg/dL (8.6-10.3); CARBON DIOXIDE 26.9 mEq/L (21.0-31.0); CHLORIDE 101 mEq/L (98-107); CREATININE - SERUM 1.3 mg/dL (0.7-1.3); GFR AFRICAN-AMERICAN > 60.0 ml/min (>90); GFR NON AFRICAN-AMERICAN 58.7 ml/min; GLUCOSE 443 mg/dL (70-105); POTASSIUM SERUM 3.9 mEq/L (3.5-5.1); SODIUM SERUM 133 mEq/L (136-145)
[2017-11-26] MEDS: INSULIN ASPART SLIDING SCALE 100 UNITS/ML UNIT SUBQ SCH ×2 (17:20→21:29)
[2017-11-26] MEDS ORDERED: VTE Chemical Prophylaxis Screen/Admission MC PRN (17:24)
--- NOTE | 2017-11-26 20:57 | Internal Medicine Prog Note ---
Internal Medicine Subjective - Subjective Service Date: 11/26/17 Patient seen and examined:: with staff Patient is:: awake, verbal, agitated Per staff patient has:: tolerating meds Internal Medicine Objective - Results Result Diagrams: 11/25/17 12:35 11/26/17 13:15 Recent Labs: Laboratory Last Values WBC 6.0 Th/cmm (4.8-10.8) 11/25/17 12:35 RBC 5.08 Mil/cmm (3.80-5.80) 11/25/17 12:35 Hgb 13.7 gm/dL (12-16) 11/25/17 12:35 Hct 41.6 % (41.0-60) 11/25/17 12:35 MCV 82.0 fl (80-99) 11/25/17 12:35 MCH 26.9 pg (27.0-31.0) L 11/25/17 12:35 MCHC Differential 32.8 pg (28.0-36.0) 11/25/17 12:35 RDW 13.6 % (11.5-20.0) 11/25/17 12:35 Plt Count 259 Th/cmm (150-400) 11/25/17 12:35 MPV 8.6 fl 11/25/17 12:35 Neutrophils % 49.2 % (40.0-80.0) 11/25/17 12:35 Lymphocytes % 33.4 % (20.0-50.0) 11/25/17 12:35 Monocytes % 11.3 % (2.0-10.0) H 11/25/17 12:35 Eosinophils % 5.8 % (0.0-5.0) H 11/25/17 12:35 Basophils % 0.3 % (0.0-2.0) 11/25/17 12:35 Sodium 133 mEq/L (136-145) L 11/26/17 13:15 Potassium 3.9 mEq/L (3.5-5.1) 11/26/17 13:15 Chloride 101 mEq/L (98-107) 11/26/17 13:15 Carbon Dioxide 26.9 mEq/L (21.0-31.0) 11/26/17 13:15 Anion Gap 9.0 (7.0-16.0) 11/26/17 13:15 BUN 17 mg/dL (7-25) 11/26/17 13:15 Creatinine 1.3 mg/dL (0.7-1.3) 11/26/17 13:15 Est GFR ( Amer) > 60.0 ml/min (>90) 11/26/17 13:15 Est GFR (Non-Af Amer) 58.7 ml/min 11/26/17 13:15 BUN/Creatinine Ratio 13.1 11/26/17 13:15 Glucose 443 mg/dL (70-105) H 11/26/17 13:15 POC Glucose 328 MG/DL (70 - 105) H 11/26/17 08:11 Hemoglobin A1c % 14.0 % (4.0-6.0) H 11/25/17 12:35 Uric Acid 6.4 mg/dL (4.4-7.6) 11/25/17 12:35 Calcium 9.7 mg/dL (8.6-10.3) 11/26/17 13:15 Troponin I 0.01 ng/mL (0.01-0.05) 11/25/17 12:35 B-Natriuretic Peptide 39.1 pg/mL (5.0-100.0) 11/25/17 12:35 Urine Source RANDOM 11/25/17 12:45 Urine Color YELLOW 11/25/17 12:45 Urine Clarity CLEAR (CLEAR) 11/25/17 12:45 Urine pH 6.5 (4.6 - 8.0) 11/25/17 12:45 Ur Specific [place] <= 1.005 (1.005-1.030) 11/25/17 12:45 Urine Protein NEGATIVE mg/dL (NEGATIVE) 11/25/17 12:45 Urine Glucose (UA) 500 mg/dL (NEGATIVE) H 11/25/17 12:45 Urine Ketones NEGATIVE mg/dL (NEGATIVE) 11/25/17 12:45 Urine Blood NEGATIVE (NEGATIVE) 11/25/17 12:45 Urine Nitrate NEGATIVE (NEGATIVE) 11/25/17 12:45 Urine Bilirubin NEGATIVE (NEGATIVE) 11/25/17 12:45 Urine Urobilinogen 0.2 E.U./dL (0.2 - 1.0) 11/25/17 12:45 Ur Leukocyte Esterase NEGATIVE (NEGATIVE) 11/25/17 12:45 Urine RBC 0-2 /hpf (0-5) H 11/25/17 12:45 Urine WBC 0-2 /hpf (0-5) 11/25/17 12:45 Ur Epithelial Cells OCCASIONAL /lpf (FEW) 11/25/17 12:45 Urine Bacteria FEW /hpf (NONE SEEN) 11/25/17 12:45 Ur Random Sodium 35 mmol/L 11/25/17 18:45 - Physical Exam Vitals and I&O: Vital Signs Temp 98.2 F 11/26/17 16:00 Pulse 98 11/26/17 17:06 Resp 16 11/26/17 16:00 BP 175/98 11/26/17 17:05 Pulse Ox 99 11/26/17 16:00 Intake & Output 11/26/17 11/26/17 11/27/17 06:59 18:59 06:59 Intake Total 50 995 Output Total 1200 Balance -1150 995 Weight (lbs) 281 lb 14.4 oz Intake: Intake, IV Amount 995 Sodium Chloride 0.9% 1, 995 000 ml @ 75 mls/hr IV . [id number] [facility] Rx#:[id number] Oral 50 Output: Urine 1200 Active Medications: Current Medications Acetaminophen (Tylenol) 650 mg PO Q4HR PRN PRN Reason: MILD PAIN OR TEMP >101 Stop: 01/24/18 16:06 Acetaminophen (Tylenol Extra Strength) 1,000 mg PO Q4HR PRN PRN Reason: MODERATE PAIN Stop: 01/24/18 16:06 Amlodipine Besylate (Norvasc) 10 mg PO DAILY [facility] Stop: 01/25/18 08:59 Last Admin: 11/26/17 10:25 Dose: 10 mg Ascorbic Acid (Vitamin C) 500 mg PO DAILY [facility] Stop: 01/25/18 08:59 Last Admin: 11/26/17 10:23 Dose: 500 mg Aspirin (Aspirin Chewable) 81 mg PO DAILY [facility] Stop: 01/25/18 08:59 Last Admin: 11/26/17 10:26 Dose: 81 mg Carvedilol (Coreg) 25 mg PO BID [facility] Stop: 01/25/18 08:59 Last Admin: 11/26/17 17:05 Dose: 25 mg Clopidogrel Bisulfate (Plavix) 75 mg PO DAILY [facility] Stop: 01/25/18 08:59 Last Admin: 11/26/17 10:26 Dose: 75 mg Docusate Sodium (Colace) 100 mg PO DAILY [facility] Stop: 01/25/18 08:59 Last Admin: 11/26/17 10:26 Dose: 100 mg Glimepiride (Amaryl) 4 mg PO DAILY [facility] Stop: 01/25/18 08:59 Last Admin: 11/26/17 10:25 Dose: 4 mg Heparin Sodium (Porcine) (Heparin) 5,000 units SUBQ Q12H [facility] Stop: 01/25/18 20:59 Sodium Chloride (Nacl 0.9%) 1,000 mls @ 75 mls/hr IV .[id number] [facility] Stop: 01/24/18 18:33 Last Admin: 11/26/17 10:37 Dose: 75 mls/hr Insulin Aspart (Novolog Insulin Sliding Scale) 0 units SUBQ ACHS [facility] PRN Reason: Protocol Stop: 01/25/18 17:16 Last Admin: 11/26/17 17:20 Dose: 11 units Insulin Human Isoph/Insulin Regular (Novolin 70/30) 30 units SUBQ BID [facility] PRN Reason: Protocol Stop: 01/24/18 16:59 Last Admin: 11/26/17 17:08 Dose: 30 units Miscellaneous (Vte Chemical Prophylaxis Screen/ Admission) 1 ea [facility] PRN PRN PRN Reason: PROTOCOL Stop: 01/25/18 17:23 Pantoprazole Sodium (Protonix) 40 mg PO DAILY [facility] Stop: 01/25/18 08:59 Last Admin: 11/26/17 10:25 Dose: 40 mg Potassium Chloride (Potassium Chloride Elixir) 10 meq PO DAILY [facility] Stop: 01/25/18 08:59 Last Admin: 11/26/17 10:23 Dose: 10 meq Prednisolone Acetate (Pred Forte 1% Ophth Susp) 1 drop RIGHT EYE QID [facility] Stop: 01/24/18 16:59 Last Admin: 11/26/17 17:06 Dose: 1 drop Quetiapine Fumarate (Seroquel) 300 mg PO HS [facility] PRN Reason: Protocol Stop: 01/25/18 20:59 Simvastatin (Zocor) 10 mg PO 1800 [facility] PRN Reason: Protocol Stop: 01/24/18 17:59 Last Admin: 11/26/17 17:06 Dose: 10 mg Sitagliptin Phosphate (Januvia) 50 mg PO DAILY [facility] Stop: 01/25/18 08:59 Last Admin: 11/26/17 10:26 Dose: 50 mg Tamsulosin HCl (Flomax) 0.4 mg PO HS [facility] Stop: 01/24/18 20:59 Last Admin: 11/25/17 21:20 Dose: 0.4 mg Zinc Sulfate (Zinc Sulfate) 220 mg PO DAILY [facility] Stop: 01/25/18 08:59 Last Admin: 11/26/17 10:24 Dose: 220 mg General: alert HEENT: NC/AT, PERRLA Neck: Supple Lungs: CTAB Cardiovascular: RRR, Normal S1, Normal S2, without murmur Abdomen: soft, non-tender Neurological: alert Internal Medicine Assmt/Plan - Assessment Assessment: severe dm hx hyperglycemi decubitus ulcer hx cad hx htn chf - Plan Plan: monitor glucose accucheck on high sliding scale wound cre ivabx continue current orders Nutritional Asmnt/Malnutr-PDOC - Dietary Evaluation Malnutrition Findings (Please click <Entered> for more info): Nutritional Asmnt/Malnutrition Start: 11/26/17 17: 00 Text: Status: Complete Freq: Document 11/26/17 17:00 EZ (Rec: 11/26/17 17:15 [id number] [id number]) Nutritional Asmnt/Malnutrition Patient General Information Nutritional Screening High Risk Diagnosis decubitis left BKA stump, uncontrolled DM Pertinent Medical Hx/Surgical Hx HTN, DM, CAD, CHF, CVA/TIA, hyponatremia, bilateral BKA, schizophrenia Subjective Information Pt seen having lunch at the time of visit, awake and alert . Pt did not want to talk at time, verbally aggressive, not able to get more nutrition information. Current Diet Order/ Nutrition Support CCHO 45gm, boost glucose control BID Pertinent Medications vitamin C, colace, novolin, kcal, seroquel, nacl 0.9%, zinc Pertinent Labs 11/26 Na 133, K 3.9, Cl 101, BUN 17, Cr 1.3, Glucose 443, POC 344-328 since adm, A1c 14 Nutritional Hx/Data Height 6 ft Height (Calculated Centimeters) 182.9 Current Weight (lbs) 281 lb Weight (Calculated Kilograms) 127.5 Weight (Calculated Grams) 886454.5 [place] Body Weight 178 % [place] Body Weight 158 Body Mass Index (BMI) 38.1 Weight Status Obese GI Symptoms GI Symptoms None Last BM no record Difficult in: None Skin Integrity/Comment: BLE edema and ulcers Estimated Nutritional Goals BEE in Kcals: Adj wt of IBW Calories/Kcals/Kg 25-30 based on adj wt 93 Kcals Calculated 8256-4051 Protein: Adj wt of IBW Protein g/k-1.2 Protein Calculated 93-112 Fluid: ml 2325-2790ml (1ml/kcal) Nutritional Problem 1. Problem Problem altered nutrition related lab values Etiology hx of DM, possible poor blood glucose management Signs/Symptoms: Glucose 443, POC 344-328, A1c 14.0 Malnutrition Alert Protein-Calorie Malnutrition N/A Is there a minimum of two criteria No selected? Query Text:Check all the applicable criteria. A minimum of two criteria are recommended for diagnosis of either severe or non-severe malnutrition. Intervention/Recommendation Comments 1. Continue with current diet as ordered. 2. Monitor PO intake, wt, labs and skin integrity 3. F/U as moderate risk in 3-5 days, 11/29-12/01 Expected Outcomes/Goals Expected Outcomes/Goals 1. PO intake to meet at least 75% of nutritional needs. 2. Wt stability, skin to remain intact, labs to improve
[2017-11-26] MEDS ORDERED: QUEtiapine Fumarate ER 200 MG, QUEtiapine Fumarate ER 100 MG PO SCH (21:00)
[2017-11-26] MEDS ORDERED: INSULIN ASPART SLIDING SCALE 100 UNITS/ML UNIT SUBQ SCH (21:00)
--- NOTE | 2017-11-27 06:20 | Consultation ---
DATE OF CONSULTATION: 11/26/2017 REFERRING PHYSICIAN: Dr. Lin Meehan. CONSULTING PHYSICIAN: Dr. Yun Dixon. REASON FOR CONSULTATION: Hyponatremia. TYPE OF CONSULTATION: Nephrology. HISTORY OF PRESENTING ILLNESS: The patient is a 67-year-old -[place] male, admitted on 11/25/2017 with uncontrolled diabetes mellitus and wound care of his bilateral BKA stumps. Upon review of the labs, he does have hypertension, type 2 diabetes mellitus with peripheral vascular disease manifestations and bilateral BKA status, old CVA, CHF, cardiomegaly, and schizophrenia. He is a resident of a [facility] facility. Upon admission, he was noted to have low sodium of 126, he was initiated on normal saline and the workup was sent, which is mostly still pending. The patient states that he has been drinking a lot of free water in order to bring his blood sugars down. PAST MEDICAL HISTORY: 1. Hypertension. 2. Type 2 diabetes mellitus with peripheral vascular disease manifestations status post bilateral BKA. 3. Bilateral BKA status. 4. Schizophrenia. 5. Old CVA. 6. Cardiomegaly and CHF. PAST SURGICAL HISTORY: Bilateral BKA. SOCIAL HISTORY: shelter facility resident. ALLERGIES: Penicillin. CURRENT MEDICATIONS: Include amlodipine, vitamin C, aspirin, Coreg, Plavix, Colace, Amaryl, Novolin insulin, Protonix, potassium, Pred Forte eyedrops, Seroquel, Zocor, Januvia, Flomax, and zinc. REVIEW OF SYSTEMS: CONSTITUTIONAL: No fever or chills. CARDIOVASCULAR: No chest pain or palpitations. PULMONARY: No shortness of breath or cough. GASTROINTESTINAL: No nausea, vomiting, or constipation. GENITOURINARY: No dysuria or hematuria. MUSCULOSKELETAL: No acute joint pain or tenderness. PHYSICAL EXAMINATION: VITAL SIGNS: Temperature 98.4, heart rate 98, and blood pressure 195/84 before a.m. medications. GENERAL: The patient is awake, alert, no apparent distress, but does have tangential thoughts. CARDIOVASCULAR: S1 and S2 regular. No rub. LUNGS: Clear. ABDOMEN: Obese, soft. EXTREMITIES: Bilateral BKA with ulceration of the stumps. DIAGNOSTIC DATA: White blood cell count 6, hemoglobin 13.7, and platelet count 259. Sodium 126, potassium 2.7, CO2 26.7, BUN 14, and creatinine 1.2. Urinalysis; no protein, no blood. ASSESSMENT AND RECOMMENDATIONS: The patient is a 67-year-old male with: 1. Hyponatremia, possibly hypovolemic, clinically stable. The patient is hypovolemic versus hypervolemic. We will initiate 1 liter of free water restriction and initiate normal saline. We will send serum osmolarity, urine sodium. BNP was only 39.1, which points more towards an intravascular depletion picture. 2. Type 2 diabetes mellitus with peripheral vascular disease and hyperlipidemia manifestations, stable. Continue insulin coverage and statin. 3. Hyperlipidemia as manifestation of diabetes, stable. Continue statins. 4. Long-term insulin use, stable. Continue insulin coverage. 5. Peripheral vascular disease as manifestation of diabetes status post bilateral below-knee amputation, stable. Continue Plavix. 6. Below-knee amputation status with wound ulcerations, stable. Continue wound care. 7. Schizophrenia, stable. Continue current regimen with Seroquel. 8. Cardiomyopathy, stable. Monitor. No active indication for diuresis. Plan of care was discussed with the patient and the RN. Thank you, Dr. Meehan, for allowing me to participate in the care of this patient. We will continue to follow with you. JOB# [id number]
[2017-11-27 06:40] LABS: ANION GAP 10.4 (7.0-16.0); BUN - UREA NITROGEN 16 mg/dL (7-25); CALCIUM SERUM 9.3 mg/dL (8.6-10.3); CARBON DIOXIDE 25.2 mEq/L (21.0-31.0); CHLORIDE 104 mEq/L (98-107); CREATININE - SERUM 1.1 mg/dL (0.7-1.3); GFR AFRICAN-AMERICAN > 60.0 ml/min (>90); GFR NON AFRICAN-AMERICAN > 60.0 ml/min; POTASSIUM SERUM 3.6 mEq/L (3.5-5.1); SODIUM SERUM 136 mEq/L (136-145)
[2017-11-27] MEDS: INSULIN ASPART SLIDING SCALE 100 UNITS/ML UNIT SUBQ SCH ×2 (06:40→12:39)
[2017-11-27 06:42] LABS: GLUCOSE 179 mg/dL (70-105)
[2017-11-27] MEDS: Sodium Chloride 0.9% 1,000 ML IV SCH (06:44)
--- NOTE | 2017-11-27 07:11 | Consultation ---
DATE OF CONSULTATION: 11/26/[address] Meehan. HISTORY AND PHYSICAL: This 67-year-old -[place] male patient who was brought to the hospital because of uncontrolled diabetes. PAST MEDICAL HISTORY: Diabetes mellitus type 2, diabetic peripheral vascular disease with bilateral BKAs, schizoaffective disorder, bipolar; cardiomyopathy, congestive heart failure. FAMILY HISTORY: Unremarkable. SOCIAL HISTORY: No history of smoking, alcohol abuse. ALLERGIES: No known allergies. PHYSICAL EXAMINATION: VITAL SIGNS: Blood pressure 190/83, pulse 80, respirations 20. HEAD: Normocephalic. No lumps or bumps. EYES: Pupils equal, reactive to light. Fundi shows AV nicking, sclerae white, conjunctivae pink. NECK: Carotid 2+. Normal upstroke. JVD flat. Thyroid not palpable. Lymph nodes not palpable. CHEST: Shows increased AP diameter. No kyphosis, scoliosis. LUNGS: Bilateral bronchovesicular breath sounds. HEART: PMI fifth intercostal space with lateral to midclavicular line. S1, S2. No S3, S4, soft systolic murmur. ABDOMEN: Soft. Liver and spleen not palpable. No organomegaly. Bowel sounds active. NEUROLOGIC: No focal neurological deficit. EXTREMITIES: Bilateral BKA. CLINICAL IMPRESSION: Diabetes mellitus, uncontrolled; hypertension, uncontrolled; diabetes mellitus, peripheral vascular disease with bilateral below-knee amputation, cardiomyopathy, congestive heart failure, chronic schizoaffective disorder, benign prostatic hypertrophy, insulin-dependent diabetes mellitus, hyperlipidemia. PLAN: The patient to continue present care. We will get BNP level. Echocardiogram to evaluate left ventricular function. [facility]# [id number]
[2017-11-27] MEDS: Aspirin 81mg Chewable Tab PO SCH (10:01)
[2017-11-27] MEDS: INSULIN 70/30 100 UNITS/ML SUBQ SCH (10:02)
[2017-11-27] MEDS: Pantoprazole 40 mg EC Tab PO SCH (10:04)
[2017-11-27] MEDS: Potassium Chloride Elixir 20 mEq /15 mL UDC PO SCH (10:05)
[2017-11-27] MEDS: Prednisolone 1% Ophth Susp 5 mL Bottle RIGHT EYE SCH ×2 (10:05→12:39)
== END 2017-11-27 13:28 | DRG 565 ==
LOC: ER 12:20 → MSI 15:35
PROVIDERS: ADMIT Internal Medicine; ATTEND Internal Medicine
DX: T87.89 Other complications of amputation stump (principal); I42.9 Cardiomyopathy, unspecified; E11.51 Type 2 diabetes mellitus with diabetic peripheral angiopathy without gangrene; E87.1 Hypo-osmolality and hyponatremia; E11.65 Type 2 diabetes mellitus with hyperglycemia; F25.0 Schizoaffective disorder, bipolar type; I50.9 Heart failure, unspecified; I11.0 Hypertensive heart disease with heart failure; L89.892 Pressure ulcer of other site, stage 2; I25.10 Atherosclerotic heart disease of native coronary artery without angina pectoris; F17.210 Nicotine dependence, cigarettes, uncomplicated; E78.5 Hyperlipidemia, unspecified; N40.0 Benign prostatic hyperplasia without lower urinary tract symptoms; Z88.0 Allergy status to penicillin; Z86.73 Personal history of transient ischemic attack (TIA), and cerebral infarction without residual deficits; Z89.512 Acquired absence of left leg below knee; Z89.511 Acquired absence of right leg below knee; Y83.8 Other surgical procedures as the cause of abnormal reaction of the patient, or of later complication, without mention of misadventure at the time of the procedure; Y92.89 Other specified places as the place of occurrence of the external cause
CPT/HCPCS: 36415-UA; 71010-TC; 80048-TC; 81001-TC; 82948-90; 83036-90; 83880-TC; 83930-90; 84300-TC; 84484-TC; 84550-TC; 85025-TC; 93005; J1644; J1815; J2650; J7030; Z7610

== ENCOUNTER 2017-11-27 13:57 | Inpatient (IN) | payer MEDICARE, MEDICAID ==
[2017-11-27] MEDS ORDERED: Haloperidol Lactate 5 mg/mL 1mL Vial ONE (15:03)
[2017-11-27] MEDS ORDERED: Haloperidol Lactate 5 mg/mL 1mL Vial IM STA (15:05)
[2017-11-27 15:25] VITALS: BP 172/73
[2017-11-27] MEDS ORDERED: Maalox 30 mL Cup PO PRN (15:25)
[2017-11-27] MEDS ORDERED: Magnesium Hydroxide (MOM) 30 mL UDC PO PRN (15:25)
[2017-11-27] MEDS: INSULIN ASPART SLIDING SCALE 100 UNITS/ML UNIT SUBQ SCH ×2 (17:53→21:00)
[2017-11-27] MEDS: INSULIN 70/30 100 UNITS/ML SUBQ SCH (17:55)
[2017-11-27] MEDS: Prednisolone 1% Ophth Susp 5 mL Bottle RIGHT EYE SCH ×2 (17:55→21:02)
[2017-11-28] MEDS: INSULIN ASPART SLIDING SCALE 100 UNITS/ML UNIT SUBQ SCH ×4 (07:00→21:33)
[2017-11-28] MEDS: Aspirin 81mg Chewable Tab PO SCH (09:52)
[2017-11-28] MEDS: Potassium Chloride Elixir 20 mEq /15 mL UDC PO SCH (09:54)
[2017-11-28] MEDS: Multivitamin Tab PO SCH (09:54)
[2017-11-28] MEDS: Pantoprazole 40 mg EC Tab PO SCH (09:54)
[2017-11-28] MEDS: INSULIN 70/30 100 UNITS/ML SUBQ SCH ×2 (10:12→17:14)
[2017-11-28] MEDS: Prednisolone 1% Ophth Susp 5 mL Bottle RIGHT EYE SCH ×4 (10:18→21:31)
[2017-11-28] MEDS: Acetaminophen 500 MG TAB PO PRN (21:30)
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
[2017-11-29] MEDS: INSULIN ASPART SLIDING SCALE 100 UNITS/ML UNIT SUBQ SCH ×4 (06:48→21:48)
[2017-11-29] MEDS: Potassium Chloride Elixir 20 mEq /15 mL UDC PO SCH (09:26)
[2017-11-29] MEDS: Acetaminophen 500 MG TAB PO PRN (09:27)
[2017-11-29] MEDS: Multivitamin Tab PO SCH (09:27)
[2017-11-29] MEDS: Aspirin 81mg Chewable Tab PO SCH (09:27)
[2017-11-29] MEDS: Pantoprazole 40 mg EC Tab PO SCH (09:27)
[2017-11-29] MEDS: INSULIN 70/30 100 UNITS/ML SUBQ SCH (09:28)
[2017-11-29] MEDS: Prednisolone 1% Ophth Susp 5 mL Bottle RIGHT EYE SCH ×3 (09:29→21:00)
--- NOTE | 2017-11-29 12:48 | General Progress Note ---
Objective - Results Recent Labs: Laboratory Last Values POC Glucose 298 MG/DL (70 - 105) H 11/29/17 11:21 - Physical Exam Vitals and I&O: Vital Signs Temp 98.5 F 11/29/17 05:32 Pulse 82 11/29/17 05:32 Resp 18 11/29/17 05:32 BP 119/72 11/29/17 05:32 Pulse Ox 98 11/29/17 05:32 Intake & Output 11/28/17 11/29/17 11/29/17 18:59 06:59 18:59 Intake Total 240 Balance 240 Intake: Oral 240 Other: # Voids 2 # Bowel Movements 0 Active Medications: Current Medications Acetaminophen (Tylenol) 650 mg PO Q4HR PRN PRN Reason: Mild Pain / Temp above 100 Stop: 01/26/18 15:24 Acetaminophen (Tylenol Extra Strength) 1,000 mg PO Q4HR PRN PRN Reason: MODERATE PAIN Stop: 01/26/18 15:44 Last Admin: 11/29/17 09:27 Dose: 1,000 mg Al Hydrox/Mg Hydrox/Simethicone (Maalox) 30 ml PO Q4HR PRN PRN Reason: GI DISTRESS Stop: 01/26/18 15:24 Amlodipine Besylate (Norvasc) 10 mg PO DAILY [facility] Stop: 01/27/18 08:59 Last Admin: 11/29/17 09:28 Dose: Not Given Ascorbic Acid (Vitamin C) 500 mg PO DAILY [facility] Stop: 01/27/18 08:59 Last Admin: 11/29/17 09:27 Dose: 500 mg Aspirin (Aspirin Chewable) 81 mg PO DAILY [facility] Stop: 01/27/18 08:59 Last Admin: 11/29/17 09:27 Dose: 81 mg Carvedilol (Coreg) 25 mg PO BID [facility] Stop: 01/26/18 16:59 Last Admin: 11/29/17 09:28 Dose: Not Given Clopidogrel Bisulfate (Plavix) 75 mg PO DAILY [facility] Stop: 01/27/18 08:59 Last Admin: 11/29/17 09:28 Dose: 75 mg Docusate Sodium (Colace) 100 mg PO DAILY [facility] Stop: 01/27/18 08:59 Last Admin: 11/29/17 09:27 Dose: 100 mg Glimepiride (Amaryl) 4 mg PO DAILY [facility] Stop: 01/27/18 08:59 Last Admin: 11/29/17 09:28 Dose: 4 mg Heparin Sodium (Porcine) (Heparin) 5,000 units SUBQ Q12H [facility] Stop: 01/26/18 20:59 Last Admin: 11/29/17 09:26 Dose: 5,000 units Insulin Aspart (Novolog Insulin Sliding Scale) 0 units SUBQ ACHS [facility] PRN Reason: Protocol Stop: 01/26/18 16:29 Last Admin: 11/29/17 06:48 Dose: 5 units Insulin Human Isoph/Insulin Regular (Novolin 70/30) 30 units SUBQ BID [facility] PRN Reason: Protocol Stop: 01/26/18 16:59 Last Admin: 11/29/17 09:28 Dose: 30 units Lorazepam (Ativan) 0.5 mg PO Q4HR PRN; Protocol PRN Reason: Agitation Stop: 12/27/17 15:24 Last Admin: 11/29/17 09:27 Dose: 0.5 mg Magnesium Hydroxide (Milk Of Magnesia) 30 ml PO HS PRN PRN Reason: Constipation Multivitamins/Vitamin C (Theragran) 1 tab PO DAILY [facility] Stop: 01/27/18 08:59 Last Admin: 11/29/17 09:27 Dose: 1 tab Pantoprazole Sodium (Protonix) 40 mg PO DAILY [facility] Stop: 01/27/18 08:59 Last Admin: 11/29/17 09:27 Dose: 40 mg Potassium Chloride (Potassium Chloride Elixir) 10 meq PO DAILY [facility] Stop: 01/27/18 08:59 Last Admin: 11/29/17 09:26 Dose: 10 meq Prednisolone Acetate (Pred Forte 1% Ophth Susp) 1 drop RIGHT EYE QID [facility] Stop: 01/26/18 16:59 Last Admin: 11/29/17 09:29 Dose: 1 drop Quetiapine Fumarate (Seroquel) 300 mg PO HS [facility] PRN Reason: Protocol Stop: 01/26/18 20:59 Last Admin: 11/28/17 20:59 Dose: 300 mg Simvastatin (Zocor) 10 mg PO 1800 [facility] PRN Reason: Protocol Stop: 01/26/18 17:59 Last Admin: 11/28/17 17:13 Dose: 10 mg Sitagliptin Phosphate (Januvia) 50 mg PO DAILY [facility] Stop: 01/27/18 08:59 Last Admin: 11/29/17 09:27 Dose: 50 mg Tamsulosin HCl (Flomax) 0.4 mg PO HS [facility] Stop: 01/26/18 20:59 Last Admin: 11/28/17 21:00 Dose: 0.4 mg Zinc Sulfate (Zinc Sulfate) 220 mg PO DAILY [facility] Stop: 01/27/18 08:59 Last Admin: 11/29/17 09:27 Dose: 220 mg Zolpidem Tartrate (Ambien) 5 mg PO HS PRN PRN Reason: Insomnia Stop: 01/26/18 15:24 Assessment/Plan - Problem List Patient Problems: All Active Problems LOWER EXTREMITIY EDEMA WITH WEIGHT GAIN (Acute)
--- NOTE | 2017-11-29 15:46 | History & Physical ---
ADMIT DATE: 11/29/2017 CHIEF COMPLAINT: Agitation. HISTORY OF PRESENT ILLNESS: This is a 67-year-old male, who was originally admitted to med/surg unit and later was transferred to psychiatric unit due to increase in agitation and aggressive behaviors. REVIEW OF SYSTEMS: GENERAL: This is a 67-year-old male that appears as stated. Denies chills. Denies fever. HEAD: Denies headache. Denies dizziness. EYES: Denies eye pain. Denies blurring of vision. NECK: Denies neck pain. Denies nuchal rigidity. CHEST: Denies any chest pain. Denies palpitation. PULMONARY: Denies coughing. Denies shortness of breath. GASTROINTESTINAL: Denies abdominal pain. Denies nausea. Denies diarrhea. MUSCULOSKELETAL: Denies any muscle pain. Denies joint pain. PAST MEDICAL HISTORY: Includes diabetes, peripheral vascular disease. PAST SURGICAL HISTORY: Below-knee amputation. FAMILY HISTORY: Unremarkable. PHYSICAL EXAMINATION: VITAL SIGNS: Temperature 98.5, heart rate of 82, respirations 18, blood pressure 119/72. HEENT: Head is atraumatic, normocephalic. Eyes: Bilateral conjunctivae are clear. Bilateral pupils are equally round and reactive. NECK: Supple. No JVD. CARDIOVASCULAR: S1 and S2, without murmur. PULMONARY: Clear to auscultation. GASTROINTESTINAL: Soft and nontender without guarding. Positive bowel sounds. MUSCULOSKELETAL: No clubbing. No cyanosis. Below knee amputation. ASSESSMENT: 1. Schizoaffective disorder. 2. Diabetes mellitus. 3. Obesity. 4. Peripheral vascular disease. 5. Below knee amputation. PLAN: We will keep the patient inpatient in psychiatric unit. We will follow up with the psychiatrist to monitor the patient's condition and behavior. Treatment plans were discussed with the patient's nurse. Treatment plans were discussed with Dr. Meehan. JOB# [id number]
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
[2017-11-30] MEDS: INSULIN ASPART SLIDING SCALE 100 UNITS/ML UNIT SUBQ SCH ×4 (06:55→21:33)
[2017-11-30] MEDS: Potassium Chloride Elixir 20 mEq /15 mL UDC PO SCH (08:36)
[2017-11-30] MEDS: Pantoprazole 40 mg EC Tab PO SCH (08:37)
[2017-11-30] MEDS: Multivitamin Tab PO SCH (08:37)
[2017-11-30] MEDS: INSULIN 70/30 100 UNITS/ML SUBQ SCH ×3 (08:38→17:13)
[2017-11-30] MEDS: Aspirin 81mg Chewable Tab PO SCH (08:38)
[2017-11-30] MEDS: Therahoney Gel 42.5gm Tube TP SCH ×2 (08:39→08:40)
[2017-11-30] MEDS: Prednisolone 1% Ophth Susp 5 mL Bottle RIGHT EYE SCH ×3 (17:11→20:23)
--- NOTE | 2017-11-30 17:20 | Internal Medicine Prog Note ---
Internal Medicine Subjective - Subjective Service Date: 11/30/17 Patient seen and examined:: with staff Patient is:: awake Per staff patient has:: no adverse event, tolerating meds Internal Medicine Objective - Results Recent Labs: Laboratory Last Values POC Glucose 221 MG/DL (70 - 105) H 11/30/17 06:46 - Physical Exam Vitals and I&O: Vital Signs Temp 98.5 F 11/30/17 16:35 Pulse 90 11/30/17 17:11 Resp 18 11/30/17 16:35 BP 159/71 11/30/17 17:11 Pulse Ox 98 11/30/17 16:35 Intake & Output 11/29/17 11/30/17 11/30/17 18:59 06:59 18:59 Intake Total 1200 120 Balance 1200 120 Intake: Oral 1200 120 Other: # Voids 3 3 # Bowel Movements 0 Active Medications: Current Medications Acetaminophen (Tylenol) 650 mg PO Q4HR PRN PRN Reason: Mild Pain / Temp above 100 Stop: 01/26/18 15:24 Acetaminophen (Tylenol Extra Strength) 1,000 mg PO Q4HR PRN PRN Reason: MODERATE PAIN Stop: 01/26/18 15:44 Last Admin: 11/29/17 09:27 Dose: 1,000 mg Al Hydrox/Mg Hydrox/Simethicone (Maalox) 30 ml PO Q4HR PRN PRN Reason: GI DISTRESS Stop: 01/26/18 15:24 Amlodipine Besylate (Norvasc) 10 mg PO DAILY [facility] Stop: 01/27/18 08:59 Last Admin: 11/30/17 08:38 Dose: 10 mg Ascorbic Acid (Vitamin C) 500 mg PO DAILY [facility] Stop: 01/27/18 08:59 Last Admin: 11/30/17 08:37 Dose: 500 mg Aspirin (Aspirin Chewable) 81 mg PO DAILY [facility] Stop: 01/27/18 08:59 Last Admin: 11/30/17 08:38 Dose: 81 mg Carvedilol (Coreg) 25 mg PO BID [facility] Stop: 01/26/18 16:59 Last Admin: 11/30/17 17:11 Dose: 25 mg Clopidogrel Bisulfate (Plavix) 75 mg PO DAILY [facility] Stop: 01/27/18 08:59 Last Admin: 11/30/17 08:37 Dose: 75 mg Docusate Sodium (Colace) 100 mg PO DAILY [facility] Stop: 01/27/18 08:59 Last Admin: 11/30/17 08:38 Dose: 100 mg Glimepiride (Amaryl) 4 mg PO DAILY [facility] Stop: 01/27/18 08:59 Last Admin: 11/30/17 08:37 Dose: 4 mg Heparin Sodium (Porcine) (Heparin) 5,000 units SUBQ Q12H [facility] Stop: 01/26/18 20:59 Last Admin: 11/30/17 08:36 Dose: 5,000 units Insulin Aspart (Novolog Insulin Sliding Scale) 0 units SUBQ ACHS [facility] PRN Reason: Protocol Stop: 01/26/18 16:29 Last Admin: 11/30/17 17:12 Dose: 9 units Insulin Human Isoph/Insulin Regular (Novolin 70/30) 30 units SUBQ BID [facility] PRN Reason: Protocol Stop: 01/26/18 16:59 Last Admin: 11/30/17 17:13 Dose: 30 units Lorazepam (Ativan) 0.5 mg PO Q4HR PRN; Protocol PRN Reason: Agitation Stop: 12/27/17 15:24 Last Admin: 11/30/17 17:11 Dose: 0.5 mg Magnesium Hydroxide (Milk Of Magnesia) 30 ml PO HS PRN PRN Reason: Constipation Multivitamins/Vitamin C (Theragran) 1 tab PO DAILY [facility] Stop: 01/27/18 08:59 Last Admin: 11/30/17 08:37 Dose: 1 tab Pantoprazole Sodium (Protonix) 40 mg PO DAILY [facility] Stop: 01/27/18 08:59 Last Admin: 11/30/17 08:37 Dose: 40 mg Potassium Chloride (Potassium Chloride Elixir) 10 meq PO DAILY [facility] Stop: 01/27/18 08:59 Last Admin: 11/30/17 08:36 Dose: 10 meq Prednisolone Acetate (Pred Forte 1% Ophth Susp) 1 drop RIGHT EYE QID [facility] Stop: 01/26/18 16:59 Last Admin: 11/30/17 17:12 Dose: Not Given Quetiapine Fumarate (Seroquel) 300 mg PO HS [facility] PRN Reason: Protocol Stop: 01/26/18 20:59 Last Admin: 11/29/17 21:37 Dose: 300 mg Simvastatin (Zocor) 10 mg PO 1800 [facility] PRN Reason: Protocol Stop: 01/26/18 17:59 Last Admin: 11/30/17 08:40 Dose: Not Given Sitagliptin Phosphate (Januvia) 50 mg PO DAILY [facility] Stop: 01/27/18 08:59 Last Admin: 11/30/17 08:37 Dose: 50 mg Tamsulosin HCl (Flomax) 0.4 mg PO HS [facility] Stop: 01/26/18 20:59 Last Admin: 11/29/17 21:37 Dose: 0.4 mg Wound Care/Dressing Products (Therahoney) 1 appl TP DAILY [facility] Stop: 01/28/18 16:59 Last Admin: 11/30/17 08:40 Dose: Not Given Zinc Sulfate (Zinc Sulfate) 220 mg PO DAILY [facility] Stop: 01/27/18 08:59 Last Admin: 11/30/17 08:38 Dose: 220 mg Zolpidem Tartrate (Ambien) 5 mg PO HS PRN PRN Reason: Insomnia Stop: 01/26/18 15:24 Last Admin: 11/29/17 21:37 Dose: 5 mg General: alert HEENT: NC/AT, PERRLA Neck: Supple Lungs: CTAB Cardiovascular: RRR, Normal S1, Normal S2 Abdomen: soft, non-tender, non-distended, positive bowel sound Neurological: alert Internal Medicine Assmt/Plan - Assessment Assessment: schizoaffective disorder dm2 obesity pvd bka - Plan Plan: continue current plan of care Nutritional Asmnt/Malnutr-PDOC - Dietary Evaluation Malnutrition Findings (Please click <Entered> for more info): Nutritional Asmnt/Malnutrition Start: 11/29/17 13: 35 Text: Status: Complete Freq: Document 11/29/17 13:35 LCHENG (Rec: 11/29/17 13:46 LCHENG [email or web address]) Nutritional Asmnt/Malnutrition Patient General Information Nutritional Screening High Risk Diagnosis psychosis Pertinent Medical Hx/Surgical Hx HTN, DM, CAD, CHF, CVA/TIA, hyponatremia, bilateral BKA, schizophrenia Subjective Information Consult received for wounds on bilateral residual limbs. Pt transfered from [facility] unit seen in room working on lunch. Pt was easily agitated, not an appropriate time to talk. Adjusted BMI 43.3 - obese Current Diet Order/ Nutrition Support CCHO 45gm Pertinent Medications vitamin C, colace, novolog, novolin, theragran, kcl, seroquel, zinc Pertinent Labs 11/28-11/29 POC 187-319 Nutritional Hx/Data Height 6 ft Height (Calculated Centimeters) 182.9 Current Weight (lbs) 284 lb Weight (Calculated Kilograms) 128.8 Weight (Calculated Grams) 439753.2 [place] Body Weight 157 % [place] Body Weight 180 Body Mass Index (BMI) 38.5 Weight Status Obese GI Symptoms GI Symptoms None Difficult in: None Skin Integrity/Comment: Paco 14, wounds on bilateral residual limbs Estimated Nutritional Goals BEE in Kcals: Adj wt of IBW Calories/Kcals/Kg 23-27 considering wheelchair bound Kcals Calculated Protein: Adj wt of IBW Protein g/k-1.2 Protein Calculated 86-103 Fluid: ml 1977-2321ml (1ml/kcal) Nutritional Problem 1. Problem Problem altered nutrition related lab values Etiology hx of DM Signs/Symptoms: POC 187-319 Malnutrition Alert Protein-Calorie Malnutrition N/A Is there a minimum of two criteria No selected? Query Text:Check all the applicable criteria. A minimum of two criteria are recommended for diagnosis of either severe or non-severe malnutrition. Intervention/Recommendation Comments 1. Continue with current diet as ordered. 2. Monitor PO intake, wt, labs and skin integrity 3. F/U as low risk in 7 days Expected Outcomes/Goals Expected Outcomes/Goals 1. PO intake to meet at least 75% of nutritional needs. 2. Wt stability, skin to remain intact, labs to improve
--- NOTE | 2017-11-30 17:42 | Progress Notes ---
DATE: 11/30/2017 Case was discussed with staff of the patient, reviewed records. The staff report, the patient 2 days ago was very combative, paranoid, making allegations, but he is starting to show progress. This patient was admitted on 11/27/2016, so it is too early to make judgment on his stability. He has been compliant with the medication with no side effects, no sedation, no nausea, no extrapyramidal symptoms and we will continue to work with the patient in group therapy, milieu therapy, and adjust medications as needed. JOB# [id number]
[2017-12-01] MEDS: INSULIN ASPART SLIDING SCALE 100 UNITS/ML UNIT SUBQ SCH ×4 (06:47→21:40)
[2017-12-01] MEDS: Potassium Chloride Elixir 20 mEq /15 mL UDC PO SCH (09:00)
[2017-12-01] MEDS: Pantoprazole 40 mg EC Tab PO SCH (09:01)
[2017-12-01] MEDS: Multivitamin Tab PO SCH (09:01)
[2017-12-01] MEDS: Aspirin 81mg Chewable Tab PO SCH (09:03)
[2017-12-01] MEDS: INSULIN 70/30 100 UNITS/ML SUBQ SCH ×2 (09:08→17:10)
[2017-12-01] MEDS: Therahoney Gel 42.5gm Tube TP SCH (09:26)
[2017-12-01] MEDS: Prednisolone 1% Ophth Susp 5 mL Bottle RIGHT EYE SCH ×4 (09:26→22:08)
--- NOTE | 2017-12-01 11:53 | General Progress Note ---
Subjective - Review of Systems Events since last encounter: patient awake in no distress denies pain Objective - Results Recent Labs: Laboratory Last Values POC Glucose 221 MG/DL (70 - 105) H 11/30/17 06:46 - Physical Exam Vitals and I&O: Vital Signs Temp 99.2 F 12/01/17 06:52 Pulse 84 12/01/17 09:03 Resp 20 12/01/17 06:52 BP 134/84 12/01/17 09:03 Pulse Ox 98 12/01/17 06:52 Intake & Output 11/30/17 12/01/17 12/01/17 18:59 06:59 18:59 Intake Total 250 Balance 250 Intake: Oral 250 Other: # Voids 2 # Bowel Movements 2 Active Medications: Current Medications Acetaminophen (Tylenol) 650 mg PO Q4HR PRN PRN Reason: Mild Pain / Temp above 100 Stop: 01/26/18 15:24 Acetaminophen (Tylenol Extra Strength) 1,000 mg PO Q4HR PRN PRN Reason: MODERATE PAIN Stop: 01/26/18 15:44 Last Admin: 11/29/17 09:27 Dose: 1,000 mg Al Hydrox/Mg Hydrox/Simethicone (Maalox) 30 ml PO Q4HR PRN PRN Reason: GI DISTRESS Stop: 01/26/18 15:24 Amlodipine Besylate (Norvasc) 10 mg PO DAILY [facility] Stop: 01/27/18 08:59 Last Admin: 12/01/17 09:02 Dose: 10 mg Ascorbic Acid (Vitamin C) 500 mg PO DAILY [facility] Stop: 01/27/18 08:59 Last Admin: 12/01/17 09:02 Dose: 500 mg Aspirin (Aspirin Chewable) 81 mg PO DAILY [facility] Stop: 01/27/18 08:59 Last Admin: 12/01/17 09:03 Dose: 81 mg Carvedilol (Coreg) 25 mg PO BID [facility] Stop: 01/26/18 16:59 Last Admin: 12/01/17 09:03 Dose: 25 mg Clopidogrel Bisulfate (Plavix) 75 mg PO DAILY [facility] Stop: 01/27/18 08:59 Last Admin: 12/01/17 09:02 Dose: 75 mg Docusate Sodium (Colace) 100 mg PO DAILY [facility] Stop: 01/27/18 08:59 Last Admin: 12/01/17 09:01 Dose: 100 mg Glimepiride (Amaryl) 4 mg PO DAILY [facility] Stop: 01/27/18 08:59 Last Admin: 12/01/17 09:01 Dose: 4 mg Heparin Sodium (Porcine) (Heparin) 5,000 units SUBQ Q12H [facility] Stop: 01/26/18 20:59 Last Admin: 12/01/17 09:16 Dose: 5,000 units Insulin Aspart (Novolog Insulin Sliding Scale) 0 units SUBQ ACHS [facility] PRN Reason: Protocol Stop: 01/26/18 16:29 Last Admin: 12/01/17 11:26 Dose: 9 units Insulin Human Isoph/Insulin Regular (Novolin 70/30) 30 units SUBQ BID [facility] PRN Reason: Protocol Stop: 01/26/18 16:59 Last Admin: 12/01/17 09:08 Dose: 30 units Lorazepam (Ativan) 0.5 mg PO Q4HR PRN; Protocol PRN Reason: Agitation Stop: 12/27/17 15:24 Last Admin: 11/30/17 17:11 Dose: 0.5 mg Magnesium Hydroxide (Milk Of Magnesia) 30 ml PO HS PRN PRN Reason: Constipation Multivitamins/Vitamin C (Theragran) 1 tab PO DAILY [facility] Stop: 01/27/18 08:59 Last Admin: 12/01/17 09:01 Dose: 1 tab Pantoprazole Sodium (Protonix) 40 mg PO DAILY [facility] Stop: 01/27/18 08:59 Last Admin: 12/01/17 09:01 Dose: 40 mg Potassium Chloride (Potassium Chloride Elixir) 10 meq PO DAILY [facility] Stop: 01/27/18 08:59 Last Admin: 12/01/17 09:00 Dose: 10 meq Prednisolone Acetate (Pred Forte 1% Ophth Susp) 1 drop RIGHT EYE QID [facility] Stop: 01/26/18 16:59 Last Admin: 12/01/17 09:26 Dose: Not Given Quetiapine Fumarate (Seroquel) 300 mg PO HS [facility] PRN Reason: Protocol Stop: 01/26/18 20:59 Last Admin: 11/30/17 20:23 Dose: 300 mg Simvastatin (Zocor) 10 mg PO 1800 [facility] PRN Reason: Protocol Stop: 01/26/18 17:59 Last Admin: 11/30/17 08:40 Dose: Not Given Sitagliptin Phosphate (Januvia) 50 mg PO DAILY [facility] Stop: 01/27/18 08:59 Last Admin: 12/01/17 09:01 Dose: 50 mg Tamsulosin HCl (Flomax) 0.4 mg PO HS [facility] Stop: 01/26/18 20:59 Last Admin: 11/30/17 20:23 Dose: 0.4 mg Wound Care/Dressing Products (Therahoney) 1 appl TP DAILY [facility] Stop: 01/28/18 16:59 Last Admin: 12/01/17 09:26 Dose: 1 appl Zinc Sulfate (Zinc Sulfate) 220 mg PO DAILY [facility] Stop: 01/27/18 08:59 Last Admin: 12/01/17 09:01 Dose: 220 mg Zolpidem Tartrate (Ambien) 5 mg PO HS PRN PRN Reason: Insomnia Stop: 01/26/18 15:24 Last Admin: 11/29/17 21:37 Dose: 5 mg Assessment/Plan - Problem List Patient Problems: All Active Problems LOWER EXTREMITIY EDEMA WITH WEIGHT GAIN (Acute) Nutritional Asmnt/Malnutr-PDOC - Dietary Evaluation Malnutrition Findings (Please click <Entered> for more info): Nutritional Asmnt/Malnutrition Start: 11/29/17 13: 35 Text: Status: Complete Freq: Document 11/29/17 13:35 [email or web address] (Rec: 11/29/17 13:46 LCEZG [email or web address]) Nutritional Asmnt/Malnutrition Patient General Information Nutritional Screening High Risk Diagnosis psychosis Pertinent Medical Hx/Surgical Hx HTN, DM, CAD, CHF, CVA/TIA, hyponatremia, bilateral BKA, schizophrenia Subjective Information Consult received for wounds on bilateral residual limbs. Pt transfered from [facility] unit seen in room working on lunch. Pt was easily agitated, not an appropriate time to talk. Adjusted BMI 43.3 - obese Current Diet Order/ Nutrition Support CCHO 45gm Pertinent Medications vitamin C, colace, novolog, novolin, theragran, kcl, seroquel, zinc Pertinent Labs 11/28-11/29 POC 187-319 Nutritional Hx/Data Height 1.83 m Height (Calculated Centimeters) 182.9 Current Weight (lbs) 128.82 kg Weight (Calculated Kilograms) 128.8 Weight (Calculated Grams) 331245.2 [place] Body Weight 157 % [place] Body Weight 180 Body Mass Index (BMI) 38.5 Weight Status Obese GI Symptoms GI Symptoms None Difficult in: None Skin Integrity/Comment: Paco 14, wounds on bilateral residual limbs Estimated Nutritional Goals BEE in Kcals: Adj wt of IBW Calories/Kcals/Kg 23-27 considering wheelchair bound Kcals Calculated Protein: Adj wt of IBW Protein g/k-1.2 Protein Calculated 86-103 Fluid: ml 1977-2321ml (1ml/kcal) Nutritional Problem 1. Problem Problem altered nutrition related lab values Etiology hx of DM Signs/Symptoms: POC 187-319 Malnutrition Alert Protein-Calorie Malnutrition N/A Is there a minimum of two criteria No selected? Query Text:Check all the applicable criteria. A minimum of two criteria are recommended for diagnosis of either severe or non-severe malnutrition. Intervention/Recommendation Comments 1. Continue with current diet as ordered. 2. Monitor PO intake, wt, labs and skin integrity 3. F/U as low risk in 7 days Expected Outcomes/Goals Expected Outcomes/Goals 1. PO intake to meet at least 75% of nutritional needs. 2. Wt stability, skin to remain intact, labs to improve
[2017-12-02] MEDS: INSULIN ASPART SLIDING SCALE 100 UNITS/ML UNIT SUBQ SCH ×4 (06:36→21:00)
[2017-12-02] MEDS: Multivitamin Tab PO SCH (09:46)
[2017-12-02] MEDS: Aspirin 81mg Chewable Tab PO SCH (09:48)
[2017-12-02] MEDS: Potassium Chloride Elixir 20 mEq /15 mL UDC PO SCH (09:50)
[2017-12-02] MEDS: Pantoprazole 40 mg EC Tab PO SCH (09:50)
[2017-12-02] MEDS: INSULIN 70/30 100 UNITS/ML SUBQ SCH ×2 (09:52→17:11)
--- NOTE | 2017-12-02 09:55 | General Progress Note ---
Subjective - Review of Systems Events since last encounter: no change Objective - Results Recent Labs: Laboratory Last Values POC Glucose 147 MG/DL (70 - 105) H 12/02/17 06:17 - Physical Exam Vitals and I&O: Vital Signs Temp 99.8 F 12/01/17 16:43 Pulse 95 12/01/17 16:43 Resp 22 12/01/17 16:43 BP 164/71 12/01/17 16:43 Pulse Ox 97 12/01/17 16:43 Active Medications: Current Medications Acetaminophen (Tylenol) 650 mg PO Q4HR PRN PRN Reason: Mild Pain / Temp above 100 Stop: 01/26/18 15:24 Last Admin: 12/01/17 18:26 Dose: 650 mg Acetaminophen (Tylenol Extra Strength) 1,000 mg PO Q4HR PRN PRN Reason: MODERATE PAIN Stop: 01/26/18 15:44 Last Admin: 11/29/17 09:27 Dose: 1,000 mg Al Hydrox/Mg Hydrox/Simethicone (Maalox) 30 ml PO Q4HR PRN PRN Reason: GI DISTRESS Stop: 01/26/18 15:24 Amlodipine Besylate (Norvasc) 10 mg PO DAILY [facility] Stop: 01/27/18 08:59 Last Admin: 12/01/17 09:02 Dose: 10 mg Ascorbic Acid (Vitamin C) 500 mg PO DAILY [facility] Stop: 01/27/18 08:59 Last Admin: 12/01/17 09:02 Dose: 500 mg Aspirin (Aspirin Chewable) 81 mg PO DAILY [facility] Stop: 01/27/18 08:59 Last Admin: 12/01/17 09:03 Dose: 81 mg Carvedilol (Coreg) 25 mg PO BID [facility] Stop: 01/26/18 16:59 Last Admin: 12/01/17 16:31 Dose: 25 mg Clopidogrel Bisulfate (Plavix) 75 mg PO DAILY [facility] Stop: 01/27/18 08:59 Last Admin: 12/01/17 09:02 Dose: 75 mg Docusate Sodium (Colace) 100 mg PO DAILY [facility] Stop: 01/27/18 08:59 Last Admin: 12/01/17 09:01 Dose: 100 mg Glimepiride (Amaryl) 4 mg PO DAILY [facility] Stop: 01/27/18 08:59 Last Admin: 12/01/17 09:01 Dose: 4 mg Heparin Sodium (Porcine) (Heparin) 5,000 units SUBQ Q12H [facility] Stop: 01/26/18 20:59 Last Admin: 12/01/17 22:04 Dose: 5,000 units Insulin Aspart (Novolog Insulin Sliding Scale) 0 units SUBQ ACHS [facility] PRN Reason: Protocol Stop: 01/26/18 16:29 Last Admin: 12/02/17 06:36 Dose: Not Given Insulin Human Isoph/Insulin Regular (Novolin 70/30) 30 units SUBQ BID [facility] PRN Reason: Protocol Stop: 01/26/18 16:59 Last Admin: 12/01/17 17:10 Dose: 30 unit Lorazepam (Ativan) 0.5 mg PO Q4HR PRN; Protocol PRN Reason: Agitation Stop: 12/27/17 15:24 Last Admin: 11/30/17 17:11 Dose: 0.5 mg Magnesium Hydroxide (Milk Of Magnesia) 30 ml PO HS PRN PRN Reason: Constipation Multivitamins/Vitamin C (Theragran) 1 tab PO DAILY [facility] Stop: 01/27/18 08:59 Last Admin: 12/01/17 09:01 Dose: 1 tab Pantoprazole Sodium (Protonix) 40 mg PO DAILY [facility] Stop: 01/27/18 08:59 Last Admin: 12/01/17 09:01 Dose: 40 mg Potassium Chloride (Potassium Chloride Elixir) 10 meq PO DAILY [facility] Stop: 01/27/18 08:59 Last Admin: 12/01/17 09:00 Dose: 10 meq Prednisolone Acetate (Pred Forte 1% Ophth Susp) 1 drop RIGHT EYE QID [facility] Stop: 01/26/18 16:59 Last Admin: 12/01/17 22:08 Dose: 1 drop Quetiapine Fumarate (Seroquel) 300 mg PO HS [facility] PRN Reason: Protocol Stop: 01/26/18 20:59 Last Admin: 12/01/17 21:40 Dose: 300 mg Simvastatin (Zocor) 10 mg PO 1800 [facility] PRN Reason: Protocol Stop: 01/26/18 17:59 Last Admin: 12/01/17 17:09 Dose: 10 mg Sitagliptin Phosphate (Januvia) 50 mg PO DAILY [facility] Stop: 01/27/18 08:59 Last Admin: 12/01/17 09:01 Dose: 50 mg Tamsulosin HCl (Flomax) 0.4 mg PO HS [facility] Stop: 01/26/18 20:59 Last Admin: 12/01/17 22:08 Dose: 0.4 mg Wound Care/Dressing Products (Therahoney) 1 appl TP DAILY [facility] Stop: 01/28/18 16:59 Last Admin: 12/01/17 09:26 Dose: 1 appl Zinc Sulfate (Zinc Sulfate) 220 mg PO DAILY [facility] Stop: 01/27/18 08:59 Last Admin: 12/01/17 09:01 Dose: 220 mg Zolpidem Tartrate (Ambien) 5 mg PO HS PRN PRN Reason: Insomnia Stop: 01/26/18 15:24 Last Admin: 11/29/17 21:37 Dose: 5 mg General: No acute distress HEENT: Atraumatic Neck: Supple Cardiovascular: Regular rate, Normal S1, Normal S2 Lungs: Clear to auscultation Abdomen: Bowel sounds Assessment/Plan - Problem List Patient Problems: All Active Problems LOWER EXTREMITIY EDEMA WITH WEIGHT GAIN (Acute) - Plan Plan: cpm Nutritional Asmnt/Malnutr-PDOC - Dietary Evaluation Malnutrition Findings (Please click <Entered> for more info): Nutritional Asmnt/Malnutrition Start: 11/29/17 13: 35 Text: Status: Complete Freq: Document 11/29/17 13:35 LCEZG (Rec: 11/29/17 13:46 LCEZG [id number]) Nutritional Asmnt/Malnutrition Patient General Information Nutritional Screening High Risk Diagnosis psychosis Pertinent Medical Hx/Surgical Hx HTN, DM, CAD, CHF, CVA/TIA, hyponatremia, bilateral BKA, schizophrenia Subjective Information Consult received for wounds on bilateral residual limbs. Pt transfered from [facility] unit seen in room working on lunch. Pt was easily agitated, not an appropriate time to talk. Adjusted BMI 43.3 - obese Current Diet Order/ Nutrition Support CCHO 45gm Pertinent Medications vitamin C, colace, novolog, novolin, theragran, kcl, seroquel, zinc Pertinent Labs 11/28-11/29 POC 187-319 Nutritional Hx/Data Height 1.83 m Height (Calculated Centimeters) 182.9 Current Weight (lbs) 128.82 kg Weight (Calculated Kilograms) 128.8 Weight (Calculated Grams) 687410.2 [place] Body Weight 157 % [place] Body Weight 180 Body Mass Index (BMI) 38.5 Weight Status Obese GI Symptoms GI Symptoms None Difficult in: None Skin Integrity/Comment: Paco 14, wounds on bilateral residual limbs Estimated Nutritional Goals BEE in Kcals: Adj wt of IBW Calories/Kcals/Kg 23-27 considering wheelchair bound Kcals Calculated Protein: Adj wt of IBW Protein g/k-1.2 Protein Calculated 86-103 Fluid: ml 1977-2321ml (1ml/kcal) Nutritional Problem 1. Problem Problem altered nutrition related lab values Etiology hx of DM Signs/Symptoms: POC 187-319 Malnutrition Alert Protein-Calorie Malnutrition N/A Is there a minimum of two criteria No selected? Query Text:Check all the applicable criteria. A minimum of two criteria are recommended for diagnosis of either severe or non-severe malnutrition. Intervention/Recommendation Comments 1. Continue with current diet as ordered. 2. Monitor PO intake, wt, labs and skin integrity 3. F/U as low risk in 7 days Expected Outcomes/Goals Expected Outcomes/Goals 1. PO intake to meet at least 75% of nutritional needs. 2. Wt stability, skin to remain intact, labs to improve
[2017-12-02] MEDS: Prednisolone 1% Ophth Susp 5 mL Bottle RIGHT EYE SCH ×4 (09:59→21:00)
[2017-12-02] MEDS: Therahoney Gel 42.5gm Tube TP SCH (10:21)
--- NOTE | 2017-12-02 10:42 | Discharge Summary ---
DATE OF DISCHARGE: 12/02/2017 PRIMARY DIAGNOSES: Schizoaffective disorder, unspecified. REASON FOR HOSPITALIZATION: The patient was admitted to the hospital because of increased agitation and irritability and aggressive behavior in [facility] where he lives. HOSPITAL COURSE: The patient continued to be agitated and in irritable mood. The patient was given Ativan on a p.r.n. basis and also he was given Seroquel in a dose of 300 mg at bedtime. Gradually, the patient's affect was brighter. The patient was less agitated. The patient was interacting more with others and was easier to redirect him. [facility] accepted the patient back and the patient was discharged there. While the patient was in the hospital, patient has no major medical problems. EXPECTED OUTCOME AFTER DISCHARGE: Fair if the patient continues to take his psychotropic medications and follow up with discharge plans. [facility]# [id number]
[2017-12-02] MEDS: Acetaminophen 500 MG TAB PO PRN (17:23)
--- NOTE | 2017-12-02 18:03 | Progress Notes ---
DATE: SUBJECTIVE: Chart reviewed and the patient interviewed. Also discussed the patient's condition with the staff and reviewed records and labs. The patient is less irritable and he is less agitated. The patient is still isolative, but he has less outbursts. Also, behavioral problems including being on the floor is less. Also easier to redirect him. He denies any hallucinations or delusions and denies any thoughts of suicide or homicide. ASSESSMENT: The patient seems to be less psychotic and less agitated. TREATMENT PLAN: We will continue monitoring his behavior and his condition closely. Also, continue to work on his poor impulse control as well as placement issue and discharge plans. JOB# [id number]
[2017-12-03] MEDS: INSULIN ASPART SLIDING SCALE 100 UNITS/ML UNIT SUBQ SCH ×4 (06:39→20:35)
[2017-12-03] MEDS: Prednisolone 1% Ophth Susp 5 mL Bottle RIGHT EYE SCH ×4 (09:30→20:36)
[2017-12-03] MEDS: Therahoney Gel 42.5gm Tube TP SCH (09:30)
[2017-12-03] MEDS: Potassium Chloride Elixir 20 mEq /15 mL UDC PO SCH (09:40)
[2017-12-03] MEDS: Multivitamin Tab PO SCH (09:40)
[2017-12-03] MEDS: Aspirin 81mg Chewable Tab PO SCH (09:50)
[2017-12-03] MEDS: Pantoprazole 40 mg EC Tab PO SCH (09:51)
[2017-12-03] MEDS: INSULIN 70/30 100 UNITS/ML SUBQ SCH ×2 (10:00→18:00)
--- NOTE | 2017-12-03 13:59 | Internal Medicine Prog Note ---
Internal Medicine Subjective - Subjective Service Date: 12/03/17 Patient is:: awake Per staff patient has:: no adverse event, tolerating meds Internal Medicine Objective - Results Recent Labs: Laboratory Last Values POC Glucose 251 MG/DL (70 - 105) H 12/03/17 11:35 - Physical Exam Vitals and I&O: Vital Signs Temp 98.1 F 12/02/17 20:00 Pulse 80 12/03/17 12:08 Resp 18 12/03/17 12:08 BP 140/82 12/03/17 12:08 Pulse Ox 98 12/03/17 12:08 Intake & Output 12/02/17 12/03/17 12/03/17 18:59 06:59 18:59 Intake Total 240 Balance 240 Intake: Oral 240 Other: # Voids 2 Stool Characteristics Soft Active Medications: Current Medications Acetaminophen (Tylenol) 650 mg PO Q4HR PRN PRN Reason: Mild Pain / Temp above 100 Stop: 01/26/18 15:24 Last Admin: 12/01/17 18:26 Dose: 650 mg Acetaminophen (Tylenol Extra Strength) 1,000 mg PO Q4HR PRN PRN Reason: MODERATE PAIN Stop: 01/26/18 15:44 Last Admin: 12/02/17 17:23 Dose: 1,000 mg Al Hydrox/Mg Hydrox/Simethicone (Maalox) 30 ml PO Q4HR PRN PRN Reason: GI DISTRESS Stop: 01/26/18 15:24 Amlodipine Besylate (Norvasc) 10 mg PO DAILY K[facility]AME Stop: 01/27/18 08:59 Last Admin: 12/03/17 09:49 Dose: 10 mg Ascorbic Acid (Vitamin C) 500 mg PO DAILY K[facility]AME Stop: 01/27/18 08:59 Last Admin: 12/03/17 09:40 Dose: 500 mg Aspirin (Aspirin Chewable) 81 mg PO DAILY KWAME Stop: 01/27/18 08:59 Last Admin: 12/03/17 09:50 Dose: 81 mg Carvedilol (Coreg) 25 mg PO BID KWAME Stop: 01/26/18 16:59 Last Admin: 12/03/17 09:50 Dose: 25 mg Clopidogrel Bisulfate (Plavix) 75 mg PO DAILY [facility] Stop: 01/27/18 08:59 Last Admin: 12/03/17 09:51 Dose: 75 mg Docusate Sodium (Colace) 100 mg PO DAILY [facility] Stop: 01/27/18 08:59 Last Admin: 12/03/17 09:40 Dose: 100 mg Glimepiride (Amaryl) 4 mg PO DAILY KWAME Stop: 01/27/18 08:59 Last Admin: 12/03/17 09:40 Dose: 4 mg Heparin Sodium (Porcine) (Heparin) 5,000 units SUBQ Q12H KWAME Stop: 01/26/18 20:59 Last Admin: 12/02/17 21:00 Dose: 5,000 units Insulin Aspart (Novolog Insulin Sliding Scale) 0 units SUBQ ACHS KWAME PRN Reason: Protocol Stop: 01/26/18 16:29 Last Admin: 12/03/17 06:39 Dose: 3 units Insulin Human Isoph/Insulin Regular (Novolin 70/30) 30 units SUBQ BID KWAME PRN Reason: Protocol Stop: 01/26/18 16:59 Last Admin: 12/03/17 10:00 Dose: 30 unit Lorazepam (Ativan) 0.5 mg PO Q4HR PRN; Protocol PRN Reason: Agitation Stop: 12/27/17 15:24 Last Admin: 11/30/17 17:11 Dose: 0.5 mg Magnesium Hydroxide (Milk Of Magnesia) 30 ml PO HS PRN PRN Reason: Constipation Multivitamins/Vitamin C (Theragran) 1 tab PO DAILY [facility] Stop: 01/27/18 08:59 Last Admin: 12/03/17 09:40 Dose: 1 tab Pantoprazole Sodium (Protonix) 40 mg PO DAILY [facility] Stop: 01/27/18 08:59 Last Admin: 12/03/17 09:51 Dose: 40 mg Potassium Chloride (Potassium Chloride Elixir) 10 meq PO DAILY [facility] Stop: 01/27/18 08:59 Last Admin: 12/03/17 09:40 Dose: 10 meq Prednisolone Acetate (Pred Forte 1% Ophth Susp) 1 drop RIGHT EYE QID [facility] Stop: 01/26/18 16:59 Last Admin: 12/02/17 21:00 Dose: Not Given Quetiapine Fumarate (Seroquel) 300 mg PO HS KWAME PRN Reason: Protocol Stop: 01/26/18 20:59 Last Admin: 12/02/17 21:00 Dose: 300 mg Simvastatin (Zocor) 10 mg PO 1800 KWAME PRN Reason: Protocol Stop: 01/26/18 17:59 Last Admin: 12/02/17 17:08 Dose: 10 mg Sitagliptin Phosphate (Januvia) 50 mg PO DAILY [facility] Stop: 01/27/18 08:59 Last Admin: 12/03/17 09:46 Dose: 50 mg Tamsulosin HCl (Flomax) 0.4 mg PO HS KWAME Stop: 01/26/18 20:59 Last Admin: 12/02/17 21:00 Dose: 0.4 mg Wound Care/Dressing Products (Therahoney) 1 appl TP DAILY K[facility]AME Stop: 01/28/18 16:59 Last Admin: 12/02/17 10:21 Dose: 1 appl Zinc Sulfate (Zinc Sulfate) 220 mg PO DAILY [facility] Stop: 01/27/18 08:59 Last Admin: 12/03/17 09:47 Dose: 220 mg Zolpidem Tartrate (Ambien) 5 mg PO HS PRN PRN Reason: Insomnia Stop: 01/26/18 15:24 Last Admin: 11/29/17 21:37 Dose: 5 mg General: alert HEENT: NC/AT, PERRLA Neck: Supple Lungs: CTAB Cardiovascular: RRR, Normal S1, Normal S2 Abdomen: soft, non-tender, non-distended, positive bowel sound Neurological: alert Internal Medicine Assmt/Plan - Assessment Assessment: schizoaffective disorder dm2 obesity pvd bka - Plan Plan: continue current plan of care Nutritional Asmnt/Malnutr-PDOC - Dietary Evaluation Malnutrition Findings (Please click <Entered> for more info): Nutritional Asmnt/Malnutrition Start: 11/29/17 13: 35 Text: Status: Complete Freq: Document 11/29/17 13:35 LCHENG (Rec: 11/29/17 13:46 LCHENG [email or web address]) Nutritional Asmnt/Malnutrition Patient General Information Nutritional Screening High Risk Diagnosis psychosis Pertinent Medical Hx/Surgical Hx HTN, DM, CAD, CHF, CVA/TIA, hyponatremia, bilateral BKA, schizophrenia Subjective Information Consult received for wounds on bilateral residual limbs. Pt transfered from [facility] unit seen in room working on lunch. Pt was easily agitated, not an appropriate time to talk. Adjusted BMI 43.3 - obese Current Diet Order/ Nutrition Support CCHO 45gm Pertinent Medications vitamin C, colace, novolog, novolin, theragran, kcl, seroquel, zinc Pertinent Labs 11/28-11/29 POC 187-319 Nutritional Hx/Data Height 6 ft Height (Calculated Centimeters) 182.9 Current Weight (lbs) 284 lb Weight (Calculated Kilograms) 128.8 Weight (Calculated Grams) 312896.2 [place] Body Weight 157 % [place] Body Weight 180 Body Mass Index (BMI) 38.5 Weight Status Obese GI Symptoms GI Symptoms None Difficult in: None Skin Integrity/Comment: Paco 14, wounds on bilateral residual limbs Estimated Nutritional Goals BEE in Kcals: Adj wt of IBW Calories/Kcals/Kg 23-27 considering wheelchair bound Kcals Calculated Protein: Adj wt of IBW Protein g/k-1.2 Protein Calculated 86-103 Fluid: ml 1977-2321ml (1ml/kcal) Nutritional Problem 1. Problem Problem altered nutrition related lab values Etiology hx of DM Signs/Symptoms: POC 187-319 Malnutrition Alert Protein-Calorie Malnutrition N/A Is there a minimum of two criteria No selected? Query Text:Check all the applicable criteria. A minimum of two criteria are recommended for diagnosis of either severe or non-severe malnutrition. Intervention/Recommendation Comments 1. Continue with current diet as ordered. 2. Monitor PO intake, wt, labs and skin integrity 3. F/U as low risk in 7 days Expected Outcomes/Goals Expected Outcomes/Goals 1. PO intake to meet at least 75% of nutritional needs. 2. Wt stability, skin to remain intact, labs to improve
--- NOTE | 2017-12-03 23:03 | Discharge Summary ---
DATE OF DISCHARGE: 12/03/2017 ADDENDUM DATE OF DISCHARGE: 12/03/2017. AGE: 67. SEX: Male. PHYSICIAN: Estuardo. The patient was supposed to be discharged yesterday and the discharge summary was dictated and dictation number is [id number]. FINAL DIAGNOSIS: Unspecified psychosis REASON TO CONTINUE HOSPITAL STAY: The patient stayed one day longer because it looks like there was a problem with placement issue. Since the placement was solved and the patient was accepted and he was discharged from the hospital. AFTER DISCHARGE PLANS: The patient will be followed as an outpatient. We will continue to follow up there. JOB# [id number]
[2017-12-04] MEDS: INSULIN ASPART SLIDING SCALE 100 UNITS/ML UNIT SUBQ SCH ×3 (06:31→17:18)
[2017-12-04] MEDS: Aspirin 81mg Chewable Tab PO SCH (09:30)
[2017-12-04] MEDS: Potassium Chloride Elixir 20 mEq /15 mL UDC PO SCH (09:30)
[2017-12-04] MEDS: Multivitamin Tab PO SCH (09:30)
[2017-12-04] MEDS: Pantoprazole 40 mg EC Tab PO SCH (09:30)
[2017-12-04] MEDS: INSULIN 70/30 100 UNITS/ML SUBQ SCH (09:30)
[2017-12-04] MEDS: Prednisolone 1% Ophth Susp 5 mL Bottle RIGHT EYE SCH ×2 (09:30→13:33)
[2017-12-04] MEDS: Therahoney Gel 42.5gm Tube TP SCH (12:00)
--- NOTE | 2017-12-04 18:42 | Progress Notes ---
DATE: 12/04/2017 SUBJECTIVE: The patient was seen in his room. The patient is asleep, but easily arousable. Denies any pain or discomfort at this time. Otherwise, the patient appears to be comfortable, in no acute distress. The patient is currently pending for discharge to retirement facility. OBJECTIVE: VITAL SIGNS: Temperature 97.8, heart rate of 88, respirations 18, blood pressure 113/81, 98% on room air. HEENT: Head is atraumatic and normocephalic. Eyes: Bilateral conjunctivae are clear. Bilateral pupils are equally round and reactive. NECK: Supple. No JVD. CARDIOVASCULAR: S1 and S2 without murmur. PULMONARY: Clear to auscultation. GASTROINTESTINAL: Soft and nontender without guarding. Positive bowel sounds. MUSCULOSKELETAL: No clubbing, no cyanosis noted. Positive below-knee amputation. ASSESSMENT: 1. Schizoaffective disorder. 2. Diabetes mellitus. 3. Obesity. 4. Peripheral vascular disease. 5. Below-knee amputation. PLAN: The patient is pending for discharge to retirement facility. The patient already has a bed in place. Hopefully, the patient will be discharged for today. Treatment plans were discussed with the patient's nurse. Treatment plans were discussed with Dr. Meehan. JOB# [id number]
--- NOTE | 2017-12-04 23:36 | Progress Notes ---
DATE: PSYCHIATRIC PROGRESS NOTE SUBJECTIVE: Chart reviewed and patient interviewed. Also discussed the patient's condition with the staff and reviewed records and labs. The patient seems to be calmer, less agitated and less irritable. The patient also is easier to follow directions. The patient was supposed to be discharged yesterday, but seems that discharge did not happen because of placement issue and it seems that the patient does not have days and high school social studies tutor have difficulty discharging the patient. Otherwise, the patient is cooperative and compliant with taking his medications with no side effects of medications. ASSESSMENT: The patient is less psychotic and less agitated. TREATMENT PLAN: We will continue to monitor his behavior and his condition closely and we will continue to follow up. [facility]# [id number]
--- NOTE | 2017-12-05 12:12 | Discharge Summary ---
DATE OF DISCHARGE: NO DICTATION [facility]# [id number]
== END 2017-12-04 17:45 | DRG 885 ==
LOC: UNDOADMIN 13:57 → GERO 13:57
PROVIDERS: ADMIT Psychiatry & Neurology Psychiatry; ATTEND Psychiatry & Neurology Psychiatry
DX: F25.9 Schizoaffective disorder, unspecified (principal); E11.51 Type 2 diabetes mellitus with diabetic peripheral angiopathy without gangrene; E66.9 Obesity, unspecified; F29 Unspecified psychosis not due to a substance or known physiological condition; Z68.38 Body mass index [BMI] 38.0-38.9, adult
CPT/HCPCS: 82948-90; J1200; J1630; J1644; J1815; J2060; J2650; Z7610

== ENCOUNTER 2018-02-09 13:56 | Inpatient (IN) | payer MEDICARE, MEDICAID ==
--- NOTE | 2018-02-09 15:10 | ED Physician Chart ---
ED Chief Complaint/HPI - Patient Information Date Seen:: 02/09/18 Time Seen:: 14:30 Chief Complaint:: Weakness History of Present Illness:: onset x 3 days of weakness, dizziness, vertigo, and AMS; no report of trauma, H/ As, S/T, neck pain, C/P, SOB, Abd. pain, A/N/V/D/C, fever, chills, or urinary s/ s Allergies:: Allergies Allergy/AdvReac Type Severity Reaction Status Date / Time Penicillins Allergy Verified 06/21/17 18:22 Historian:: Patient, EMS Review:: Nurse's Note Reviewed, Old Chart Reviewed, EMS run form Reviewed ED Review of Systems - Review of Systems General/Constitutional: No fever, No chills, No weight loss, No weakness, No diaphoresis, No edema, No loss of appetite Skin: No skin lesions, No rash, No bruising Head: No headache, No light-headedness Eyes: No loss of vision, No pain, No diplopia ENT: No earache, No nasal drainage, No sore throat, No tinnitus Neck: No neck pain, No swelling, No thyromegaly, No stiffness, No mass noted Cardio Vascular: No chest pain, No palpitations, No PND, No orthopnea, No edema Pulmonary: No SOB, No cough, No sputum, No wheezing GI: No nausea, No vomiting, No diarrhea, No pain, No melena, No hematochezia, No constipation, No hematemesis G/U: No dysuria, No frequency, No hematuria, No nacturia Musculoskeletal: No bone or joint pain, No back pain, No muscle pain Endocrine: No polyuria, No polydipsia Psychiatric: No prior psych history, No depression, No anxiety, No suicidal ideation, No homicidal ideation, Auditory hallucination, No visual hallucination Hematopoietic: No bruising, No lymphadenopathy Allergic/Immuno: No urticaria, No angioedema Neurological: No syncope, No focal symptoms, Weakness, No paresthesia, No headache, No seizure, Dizziness, No confusion, Vertigo ED Past Medical History - Past Medical History Obtainable: Yes Past Medical History: HTN, DM, CAD, CHF, Dyslipidemia Family History: Heart disease, Diabetes Melitus, HTN Social History: Smoker, No Alcohol, No Drug Use, Single, Care Facility Surgical History: other (BKAs) Psychiatricy History: Schizophrenia, Bipolar Medication: Reviewed Family Medical History - Family Member Mother History Unknown: Yes Ethnicity: Non- ED Physical Exam - Physical Examination General/Constitutional: Awake, Well-developed, well-nourished, Alert, No distress, GCS 15, Non-toxic appearing, Ambulatory Head: Atraumatic Eyes: Lids, conjuctiva normal, PERRL, EOMI Skin: Nl inspection, No rash, No skin lesions, No ecchymosis, Well hydrated, No lymphadenopathy ENMT: External ears, nose nl, TM canals nl, Nasal exam nl, Lips, teeth, gums nl , Oropharynx nl, Tonsils nl Neck: Nontender, Full ROM w/o pain, No JVD, No nuchal rigidity, No bruit, No mass, No stridor Respiratory: Nl effort/Exclusion, Clear to Auscultation, No Wheeze/Rhonchi/Rales Cardio Vascular: RRR, No murmur, gallop, rubs, NL S1 S2, Carotid/Femoral/Distal pulses equal bilaterally GI: No tenderness/rebounding/guarding, No organomegaly, No hernia, Normal BS's, Nondistended, No mass/bruits, No McBurney tenderness : No CVA tenderness Extremities: No tenderness or effusion, Full ROM, normal strength in all extremities, No edema, Normal digits & nails Other Extremities comments:: + BKAs Neuro/Psych: Alert/oriented, DTR's symmetric, Normal sensory exam, Normal motor strength, Judgement/insight normal, Mood normal, Normal gait, No focal deficits Misc: Normal back, No paraspinal tenderness ED Labs/Radiology/EKG Results - Lab Results Comments:: Glucose: 462 - Radiology Results Comments:: NAD - EKG Interpretations EKG Time:: 17:51 Rate & Rhythm: 91; NSR Comments:: LVH; non-specific st-t changes ED Septic Shock - . Is Septic Shock (SBP<90, OR Lactate>4 mmol\L) present?: No ED Reassessment (Disposition) - Reassessment Reassessment Condition:: Improved - Diagnosis Diagnosis:: Dx: Uncontrolled Diabetes Mellitus; Hyperglycemia; DM; Dehydration; Weakness; Dizziness; Vertigo; AMS; ALOC - Aftercare/Follow up Instructions Aftercare/Follow-Up Instructions:: Counseled pt regarding lab results/diagnosis & need follow up, Counseled pt & family regarding lab results/diagnosis & need follow up - Patient Disposition Discharge/Transfer:: Acute Care w/in this hosp Accepting Physician:: Dr. Meehan Time Called:: 1800 Time Responded:: 18:00 Admitted to:: Telemetry Spoke to:: Dr. Meehan Admitting Medical Physician:: Dr. Meehan Condition at Disposition:: Stable, Improved
[2018-02-09 18:18] LABS: % BASOPHILS 2.2 % (0.0-2.0); % EOSINOPHILS 1.4 % (0.0-5.0); % MONOCYTES 9.3 % (2.0-10.0); % NEUTROPHILS 71.1 % (40.0-80.0); BASOPHILE ABSOLUTE 0.2 Th/cumm (0-0.2); EOSINOPHILE ABSOLUTE 0.1 Th/cmm (0.1-0.4); HEMATOCRIT 38.9 % (41.0-60); HEMOGLOBIN 12.7 gm/dL (12-16); LYMPHOCYTE ABSOLUTE 1.4 Th/cmm (1.5-3.0); MEAN CELL VOLUME 80.5 fl (80-99); MEAN CORPUSCULAR HEMOGLOBIN 26.2 pg (27.0-31.0); MEAN CORPUSCULAR HGB CONC 32.6 pg (28.0-36.0); MEAN PLATELET VOLUME 8.1 fl; MONOCYTE ABSOLUTE 0.8 Th/cmm (0.3-1.0); NEUTROPHILE ABSOLUTE 6.5 Th/cmm (1.8-8.0); PLATELET COUNT 347 Th/cmm (150-400); RED BLOOD COUNT 4.83 Mil/cmm (3.80-5.80); RED CELL DISTRIBUTION WIDTH 13.9 % (11.5-20.0)
[2018-02-09 18:24] LABS: INR 0.95 (0.5-1.4); PROTHROMBIN TIME (TEST) 9.9 SECONDS (9.5-11.5)
[2018-02-09 18:28] LABS: ALB/GLOB RATIO 0.9 (1.0-1.8); ALBUMIN 3.6 gm/dL (4.2-5.5); ALKALINE PHOSPHATASE 133 U/L (34-104); ANION GAP 10.4 (7.0-16.0); BILIRUBIN,TOTAL 0.4 mg/dL (0.3-1.0); BUN - UREA NITROGEN 16 mg/dL (7-25); CALCIUM SERUM 10.1 mg/dL (8.6-10.3); CARBON DIOXIDE 31.8 mEq/L (21.0-31.0); CHLORIDE 98 mEq/L (98-107); CHOLESTEROL 118 mg/dL (<200); CREATININE - SERUM 1.4 mg/dL (0.7-1.3); GFR AFRICAN-AMERICAN > 60.0 ml/min (>90); GFR NON AFRICAN-AMERICAN 53.9 ml/min; HDL -HIGH DENSITY LIPOPROTEIN 36 mg/dL (23-92); POTASSIUM SERUM 4.2 mEq/L (3.5-5.1); SGOT 15 U/L (13-39); SGPT/ALT 10 U/L (7-52); SODIUM SERUM 136 mEq/L (136-145); TOTAL PROTEIN,SERUM 7.6 gm/dL (6.0-8.3); TRIGLYCERIDES 131 mg/dL (<150)
[2018-02-09 18:32] LABS: GLUCOSE 462 mg/dL (70-105)
[2018-02-09] MEDS ORDERED: Sodium Chloride 0.9% 500 ML IV ONE (18:42)
[2018-02-09] MEDS ORDERED: INSULIN HUMAN REGULAR 100 UNITS/ML UNIT SUBQ ONE (18:43)
[2018-02-09] MEDS ORDERED: INSULIN HUMAN REGULAR 100 UNITS/ML UNIT ONE (19:12)
[2018-02-10] MEDS ORDERED: INSULIN ASPART SLIDING SCALE 100 UNITS/ML UNIT SUBQ SCH
[2018-02-10] MEDS ORDERED: Acetaminophen 500 MG TAB PO PRN (00:08)
[2018-02-10 03:05] VITALS: BP 131/61
[2018-02-10] MEDS: INSULIN ASPART SLIDING SCALE 100 UNITS/ML UNIT SUBQ SCH ×5 (04:37→20:33)
[2018-02-10] MEDS: INSULIN 70/30 100 UNITS/ML SUBQ SCH ×3 (04:38→18:28)
[2018-02-10 07:24] LABS: % BASOPHILS 1.7 % (0.0-2.0); % LYMPHOCYTES 13.2 % (20.0-50.0); % NEUTROPHILS 75.1 % (40.0-80.0); BASOPHILE ABSOLUTE 0.2 Th/cumm (0-0.2); EOSINOPHILE ABSOLUTE 0.1 Th/cmm (0.1-0.4); HEMATOCRIT 38.8 % (41.0-60); HEMOGLOBIN 12.8 gm/dL (12-16); LYMPHOCYTE ABSOLUTE 1.4 Th/cmm (1.5-3.0); MEAN CELL VOLUME 79.3 fl (80-99); MEAN CORPUSCULAR HEMOGLOBIN 26.2 pg (27.0-31.0); MEAN CORPUSCULAR HGB CONC 33.1 pg (28.0-36.0); MEAN PLATELET VOLUME 8.4 fl; NEUTROPHILE ABSOLUTE 8.1 Th/cmm (1.8-8.0); PLATELET COUNT 341 Th/cmm (150-400); RED BLOOD COUNT 4.89 Mil/cmm (3.80-5.80); RED CELL DISTRIBUTION WIDTH 13.9 % (11.5-20.0); WHITE BLOOD COUNT 10.8 Th/cmm (4.8-10.8)
[2018-02-10 07:36] LABS: ANION GAP 11.5 (7.0-16.0); BUN - UREA NITROGEN 14 mg/dL (7-25); CALCIUM SERUM 9.9 mg/dL (8.6-10.3); CHLORIDE 100 mEq/L (98-107); CREATININE - SERUM 1.3 mg/dL (0.7-1.3); GFR AFRICAN-AMERICAN > 60.0 ml/min (>90); GFR NON AFRICAN-AMERICAN 58.7 ml/min; POTASSIUM SERUM 3.5 mEq/L (3.5-5.1); SODIUM SERUM 137 mEq/L (136-145)
[2018-02-10 07:44] LABS: GLUCOSE 340 mg/dL (70-105)
--- NOTE | 2018-02-10 08:17 | Diagnostic Imaging Report ---
Exam: portable chest x-ray HISTORY: Chest pain. Findings: Portable examination of the chest at 1831 hours reviewed and compared to prior study 11/25/2017 demonstrates cardiomegaly with superimposed congestive heart failure changes bilaterally. The costophrenic angles are clear no active pulmonic infiltrates are noted. Bony thorax is intact IMPRESSION: Cardiomegaly, congestive heart failure.
[2018-02-10] MEDS ORDERED: Magnesium Hydroxide (MOM) 30 mL UDC PO PRN (16:45)
[2018-02-10] MEDS ORDERED: Maalox 30 mL Cup PO PRN (16:45)
[2018-02-10] MEDS ORDERED: INSULIN 70/30 100 UNITS/ML SUBQ SCH (17:00)
--- NOTE | 2018-02-10 19:41 | History & Physical ---
ADMIT DATE: 02/09/2018 HISTORY OF PRESENT ILLNESS: The patient is a very well known to me. The patient known to have history of underlying psychosis, history of cardiomyopathy, history of low ejection fraction, history of systolic failure in the past. Also, history of generalized anasarca. The patient came because of increasing weakness and increasing dizziness, was complaining of chest pain and some shortness of breath. PAST MEDICAL HISTORY: As enumerated history of hypertension, diabetes, coronary artery disease, heart failure, dyslipidemia. PHYSICAL EXAMINATION: GENERAL: The patient awake, alert, well-developed male, patient seems slightly short of breath. HEAD: Normal. ENT: Normal. LUNGS: Bilateral rales. CARDIOVASCULAR SYSTEM: S1, S2 heard. ABDOMEN: Soft. Bowel sounds are heard. LABORATORY DATA: EKG showed sinus rhythm and the diagnosis of blood sugar was very high. DIAGNOSES: Uncontrolled diabetes, hyperglycemia, diabetes, congestive heart failure, history of CHF, history of cardiomyopathy, history of dizziness, history of vertigo, history of psychosis and history of coronary artery disease, hyperlipidemia. PLAN: The patient is being admitted. I will go ahead and do a cardiac workup and control his diabetes. I will follow the patient and is consulted. JOB# [id number]
[2018-02-10 20:05] LABS: A1C % 14.5 % (4.0-6.0)
[2018-02-10] MEDS: Prednisolone 1% Ophth Susp 5 mL Bottle RIGHT EYE SCH (20:41)
[2018-02-11] MEDS: INSULIN ASPART SLIDING SCALE 100 UNITS/ML UNIT SUBQ SCH ×4 (07:01→21:18)
[2018-02-11] MEDS: Potassium Chloride Elixir 20 mEq /15 mL UDC PO SCH (08:38)
[2018-02-11] MEDS: Multivitamin Tab PO SCH (08:39)
[2018-02-11] MEDS: Aspirin 81mg Chewable Tab PO SCH (08:39)
[2018-02-11] MEDS: Pantoprazole 40 mg EC Tab PO SCH (08:39)
[2018-02-11] MEDS: Prednisolone 1% Ophth Susp 5 mL Bottle RIGHT EYE SCH ×5 (08:50→21:19)
--- NOTE | 2018-02-11 10:09 | Consultation ---
DATE OF CONSULTATION: 02/10/[address] Meehan. HISTORY AND PHYSICAL: This is a 67-year-old -[place] male patient who came to the hospital due to uncontrolled diabetes, atypical chest pain. No history of PND, orthopnea. PAST MEDICAL HISTORY: Diabetes mellitus type 2, insulin-dependent, poorly controlled; congestive heart failure; systolic dysfunction; cardiomyopathy; hyperlipidemia, ischemic cardiomyopathy; angina; peripheral vascular disease; bilateral BKA; schizophrenia, bipolar; BPH. FAMILY HISTORY: Unremarkable. SOCIAL HISTORY: No history of smoking, alcohol abuse. ALLERGIES: None. PHYSICAL EXAMINATION: VITAL SIGNS: Blood pressure 140/80, pulse 70, respirations 20. HEAD: Normocephalic. No lumps or bumps. EYES: Pupils equal, reactive to light. Fundi show AV nicking, sclerae white, conjunctivae pink. NECK: Carotid 2+. Normal upstroke. JVD flat. Thyroid not palpable. Lymph nodes not palpable. CHEST: Shows increased AP diameter. No kyphosis, scoliosis. LUNGS: Bilateral breath sounds. HEART: PMI fifth intercostal space with lateral to midclavicular line. S1, S2, S3, S4, soft systolic murmur. ABDOMEN: Soft. Liver, spleen not palpable. No organomegaly. Bowel sounds active. NEUROLOGIC: Unremarkable. EXTREMITIES: Peripheral pulses difficult to palpate. The patient has bilateral BKA. CLINICAL IMPRESSION: Uncontrolled diabetes mellitus; congestive heart failure; systolic dysfunction; chronic cardiomyopathy, ischemic; hyperlipidemia; angina; diabetic peripheral vascular disease; bilateral below knee amputation; schizophrenia, bipolar; insulin-dependent diabetes mellitus; benign prostatic hypertrophy. PLAN: Admit the patient. We will monitor the patient closely for any arrhythmias and also get a BNP level, EKG. JOB# [id number]
--- NOTE | 2018-02-11 13:30 | Internal Medicine Prog Note ---
Internal Medicine Subjective - Subjective Service Date: 02/11/18 (awake, alert, sitting up in bed denies any sob or chest pain) Patient seen and examined:: with staff Patient is:: awake, verbal Per staff patient has:: tolerating meds Internal Medicine Objective - Results Result Diagrams: 02/10/18 06:45 02/10/18 06:45 Recent Labs: Laboratory Last Values WBC 10.8 Th/cmm (4.8-10.8) 02/10/18 06:45 RBC 4.89 Mil/cmm (3.80-5.80) 02/10/18 06:45 Hgb 12.8 gm/dL (12-16) 02/10/18 06:45 Hct 38.8 % (41.0-60) L 02/10/18 06:45 MCV 79.3 fl (80-99) L 02/10/18 06:45 MCH 26.2 pg (27.0-31.0) L 02/10/18 06:45 MCHC Differential 33.1 pg (28.0-36.0) 02/10/18 06:45 RDW 13.9 % (11.5-20.0) 02/10/18 06:45 Plt Count 341 Th/cmm (150-400) 02/10/18 06:45 MPV 8.4 fl 02/10/18 06:45 Neutrophils % 75.1 % (40.0-80.0) 02/10/18 06:45 Lymphocytes % 13.2 % (20.0-50.0) L 02/10/18 06:45 Monocytes % 9.0 % (2.0-10.0) 02/10/18 06:45 Eosinophils % 1.0 % (0.0-5.0) 02/10/18 06:45 Basophils % 1.7 % (0.0-2.0) 02/10/18 06:45 PT 9.9 SECONDS (9.5-11.5) 02/09/18 18:02 INR 0.95 (0.5-1.4) 02/09/18 18:02 Sodium 137 mEq/L (136-145) 02/10/18 06:45 Potassium 3.5 mEq/L (3.5-5.1) 02/10/18 06:45 Chloride 100 mEq/L (98-107) 02/10/18 06:45 Carbon Dioxide 29.0 mEq/L (21.0-31.0) 02/10/18 06:45 Anion Gap 11.5 (7.0-16.0) 02/10/18 06:45 BUN 14 mg/dL (7-25) 02/10/18 06:45 Creatinine 1.3 mg/dL (0.7-1.3) 02/10/18 06:45 Est GFR ( Amer) > 60.0 ml/min (>90) 02/10/18 06:45 Est GFR (Non-Af Amer) 58.7 ml/min 02/10/18 06:45 BUN/Creatinine Ratio 10.8 02/10/18 06:45 Glucose 340 mg/dL (70-105) H D 02/10/18 06:45 POC Glucose 360 MG/DL (70 - 105) H 02/11/18 12:19 Hemoglobin A1c % 14.5 % (4.0-6.0) H 02/09/18 18:02 Calcium 9.9 mg/dL (8.6-10.3) 02/10/18 06:45 Total Bilirubin 0.4 mg/dL (0.3-1.0) 02/09/18 18:02 AST 15 U/L (13-39) 02/09/18 18:02 ALT 10 U/L (7-52) 02/09/18 18:02 Alkaline Phosphatase 133 U/L (34-104) H 02/09/18 18:02 Creatine Kinase 292 U/L (30-223) H 02/09/18 18:02 CK-MB (CK-2) 3.2 ng/mL (0.6-6.3) 02/09/18 18:02 Troponin I 0.01 ng/mL (0.01-0.05) 02/09/18 18:02 B-Natriuretic Peptide 145.0 pg/mL (5.0-100.0) H 02/10/18 06:45 Total Protein 7.6 gm/dL (6.0-8.3) 02/09/18 18:02 Albumin 3.6 gm/dL (4.2-5.5) L 02/09/18 18:02 Globulin 4.0 gm/dL 02/09/18 18:02 Albumin/Globulin Ratio 0.9 (1.0-1.8) L 02/09/18 18:02 Triglycerides 131 mg/dL (<150) 02/09/18 18:02 Cholesterol 118 mg/dL (<200) 02/09/18 18:02 LDL Cholesterol Direct 64 mg/dL (75-193) L 02/09/18 18:02 HDL Cholesterol 36 mg/dL (23-92) 02/09/18 18:02 - Physical Exam Vitals and I&O: Vital Signs Temp 98.2 F 02/11/18 04:00 Pulse 96 02/11/18 08:39 Resp 20 02/11/18 04:00 BP 157/74 02/11/18 08:39 Pulse Ox 96 02/11/18 04:00 Intake & Output 02/10/18 02/11/18 02/11/18 18:59 06:59 18:59 Intake Total 100 Output Total 400 Balance -300 Weight (lbs) 284 lb 284 lb Intake: Oral 100 Output: Urine 400 Other: Weight Source Patient stated Bedscale Active Medications: Current Medications Acetaminophen (Tylenol) 650 mg PO Q4HR PRN PRN Reason: Mild Pain / Temp above 101 Stop: 04/11/18 16:44 Acetaminophen (Tylenol Extra Strength) 1,000 mg PO Q4HR PRN PRN Reason: MODERATE PAIN Stop: 04/11/18 16:44 Al Hydrox/Mg Hydrox/Simethicone (Maalox) 30 ml PO Q4HR PRN PRN Reason: GERD Stop: 04/11/18 16:44 Ascorbic Acid (Vitamin C) 500 mg PO DAILY [facility] Stop: 04/12/18 08:59 Last Admin: 02/11/18 08:39 Dose: 500 mg Aspirin (Aspirin Chewable) 81 mg PO DAILY [facility] Stop: 04/12/18 08:59 Last Admin: 02/11/18 08:39 Dose: 81 mg Carvedilol (Coreg) 25 mg PO BID [facility] Stop: 04/11/18 16:59 Last Admin: 02/11/18 08:39 Dose: 25 mg Docusate Sodium (Colace) 100 mg PO DAILY [facility] Stop: 04/12/18 08:59 Last Admin: 02/11/18 08:39 Dose: 100 mg Glimepiride (Amaryl) 4 mg PO DAILY [facility] Stop: 04/12/18 08:59 Last Admin: 02/11/18 08:39 Dose: 4 mg Insulin Aspart (Novolog Insulin Sliding Scale) 0 units SUBQ ACHS [facility] PRN Reason: Protocol Stop: 04/11/18 20:59 Last Admin: 02/11/18 12:52 Dose: 9 units Insulin Human Isoph/Insulin Regular (Novolin 70/30) 40 units SUBQ BID [facility] PRN Reason: Protocol Stop: 04/12/18 12:09 Magnesium Hydroxide (Milk Of Magnesia) 30 ml PO HS PRN PRN Reason: Constipation Stop: 04/11/18 16:44 Multivitamins/Vitamin C (Theragran) 1 tab PO DAILY [facility] Stop: 04/12/18 08:59 Last Admin: 02/11/18 08:39 Dose: 1 tab Pantoprazole Sodium (Protonix) 40 mg PO DAILY [facility] Stop: 04/12/18 08:59 Last Admin: 02/11/18 08:39 Dose: 40 mg Potassium Chloride (Potassium Chloride Elixir) 10 meq PO DAILY [facility] Stop: 04/12/18 08:59 Last Admin: 02/11/18 08:38 Dose: 10 meq Prednisolone Acetate (Pred Forte 1% Ophth Susp) 1 drop RIGHT EYE QID [facility] Stop: 04/11/18 16:59 Last Admin: 02/11/18 12:52 Dose: 1 drop Quetiapine Fumarate (Seroquel) 300 mg PO HS [facility] PRN Reason: Protocol Stop: 04/11/18 20:59 Simvastatin (Zocor) 10 mg PO 1800 [facility] PRN Reason: Protocol Stop: 04/11/18 17:59 Last Admin: 02/10/18 20:40 Dose: 10 mg Sitagliptin Phosphate (Januvia) 50 mg PO DAILY [facility] Stop: 04/12/18 08:59 Last Admin: 02/11/18 08:39 Dose: 50 mg Tamsulosin HCl (Flomax) 0.4 mg PO HS [facility] Stop: 04/11/18 20:59 Last Admin: 02/10/18 20:40 Dose: 0.4 mg General: weak, alert HEENT: NC/AT, PERRLA Neck: Supple Lungs: CTAB Cardiovascular: RRR, Normal S1, Normal S2 Abdomen: soft, non-tender, non-distended, positive bowel sound Neurological: alert Internal Medicine Assmt/Plan - Assessment Assessment: uncontrolled dm hyperglycemia chf hx cardiomyopathy hx dizziness hx vertigo hx psychosis - Plan Plan: monitor glucose dietary consultation cbc/bmp in am continue current orders Nutritional Asmnt/Malnutr-PDOC - Dietary Evaluation Malnutrition Findings (Please click <Entered> for more info): Nutritional Asmnt/Malnutrition Start: 02/10/18 16: 59 Text: Status: Complete Freq: Document 02/10/18 17:05 [email or web address] (Rec: 02/10/18 17:11 [email or web address]) Nutritional Asmnt/Malnutrition Patient General Information Nutritional Screening High Risk Diagnosis CHF Pertinent Medical Hx/Surgical Hx HTn, Dm, CAD, CHF, dyslipidemia, BKAs, schizophrenia, bipolar Subjective Information Pt seen sitting up in bed, awake and alert, hyperverbal. Pt reported good appetite. Per EMR, pt consumed 100% of breakfast this morning. Pt had bilateral BKA noted. Current Diet Order/ Nutrition Support CCHO 60gm Pertinent Medications vit C, colace, lasix, novolog, novolin, theragran, protinix, kcl, seroquel Pertinent Labs 02/10 glucose 340, POC 255-464 02/09 glucose 462, POC 461-485 Nutritional Hx/Data Height 6 ft Height (Calculated Centimeters) 182.9 Current Weight (lbs) 284 lb Weight (Calculated Kilograms) 128.8 Weight (Calculated Grams) 802608.2 Magna Body Weight 157 Body Mass Index (BMI) 38.5 Weight Status Obese GI Symptoms GI Symptoms None Last BM 02/10 Difficult in: None Usual diet at home pt reported he was on diabetic 1800kcal diet and 2gm low sodium diet Skin Integrity/Comment: intact, abraham 13 Current %PO Good (75-100%) Estimated Nutritional Goals BEE in Kcals: Adj wt of IBW Calories/Kcals/Kg 23-27 Kcals Calculated Protein: Adj wt of IBW Protein g/k Protein Calculated Fluid: ml 1977-2321ml (1ml/ckal) Nutritional Problem 1. Problem Problem altered nutrition related labs Etiology hx of DM Signs/Symptoms: glucose 340-462, POC 255-485 Malnutrition Alert Protein-Calorie Malnutrition N/A Is there a minimum of two criteria No selected? Query Text:Check all the applicable criteria. A minimum of two criteria are recommended for diagnosis of either severe or non-severe malnutrition. Intervention/Recommendation Comments 1. Recommend adding 2gm low sodium diet d/t CHF 2. Monitor PO intake, wt, labs and skin integrity 3. F/U as moderate risk in 3-5 day, 02/13-02/15 Expected Outcomes/Goals Expected Outcomes/Goals 1. PO intake to meet at least 75% of nutritional needs. 2. Wt stability, skin to remain intact, labs to approach WNL.
--- NOTE | 2018-02-11 13:37 | Consultation ---
DATE OF CONSULTATION: 02/11/2018 ATTENDING: Lin Meehan M.D. REASON FOR CONSULTATION: Worsening kidney function, electrolyte imbalance, and fluid management. HISTORY OF PRESENT ILLNESS: This is a 67-year-old male with past medical history of type 2 diabetes mellitus, who came in because of dizziness. A few hours prior to admission, the patient complained of dizziness/vertigo, weakness and was found to be altered by ECF staff. He was then brought to the Emergency Room. His white count was 9 with a temperature of 98.2 degrees. Chest x-ray showed cardiomyopathy with CHF. However, the infiltrates in his chest x-ray looks like chronic rather than acute infiltrates. BNP level was 107 and then 145. However, his blood sugar is uncontrolled at 485. He was admitted with a BUN/creatinine of 60/1.4 and today his BUN/creatinine is 14/1.3. He had no episodes of nausea and vomiting as well as diarrhea. PAST MEDICAL HISTORY: 1. Coronary artery disease. 2. Bipolar disorder. 3. Psychosis. 4. Type 2 diabetes mellitus. 5. Diabetic neuropathy. 6. CVA. 7. Dyslipidemia. 8. Essential hypertension. 9. Morbid obesity. CURRENT MEDICATIONS: Currently on acetaminophen, Sinemet, amlodipine, ascorbic acid, aspirin, carvedilol, clonidine, docusate sodium, furosemide, glimepiride, insulin 70/30, insulin aspart, magnesium hydroxide, multivitamins, Protonix, potassium chloride, prednisolone 1% ophthalmic solution, quetiapine fumarate, simvastatin, sitagliptin, and tamsulosin. ALLERGIES: Allergic to PENICILLIN. SOCIAL AND FAMILY HISTORY: I was unable to obtain from the patient because he is currently uncooperative and agitated. REVIEW OF SYSTEMS: Again, I was not able to decipher directly from the patient because of the above symptoms. PHYSICAL EXAMINATION: GENERAL: The patient is awake, somewhat agitated, less cooperative on the obese side. VITAL SIGNS: Blood pressure is 157/74, pulse 96, temperature 98.2 degrees. SKIN: Poor turgor, warm. No rash, no jaundice appreciated. HEENT: Head is normocephalic, atraumatic. Eyes: Extraocular muscles intact. Pupils equal, round, reactive to light and accommodates. Anicteric sclerae. Pale conjunctivae. Nose: Midline nasal septum. Mouth: Dry mucosa, adequate dentition. NECK: Supple, no adenopathy, no thyromegaly, no bruits. Trachea palpated in the midline. CHEST AND CVS: S1, S2, distant heart sounds, but no rub, murmur, nor gallop appreciated. Point of maximal impulse unable to assess due to the patient's size. LUNGS: Equal expansion. Minimal use of accessory muscles. No supraclavicular retractions. Decreased breath sounds, but no rales, rhonchi, nor wheezes appreciated. ABDOMEN: Obese, soft, positive for bowel sounds. No bruits either diastolic or systolic. RECTAL: The patient refused. GENITOURINARY: Normal appearing male genitalia. MUSCULOSKELETAL: No effusions present in his lower extremities with adequate range of motion. EXTREMITIES: He does have slight bipedal edema on his lower extremities. He has a bilateral BKA. Bilateral stump looks fine without any signs of infection. NEUROLOGIC: The patient is awake, verbal, but periods of confusion. Thus, he was not able to follow my neuro commands and I was not able to pursue further my neuro exam. LABORATORY DATA: Did reveal white count 10.8, hemoglobin 12.8, hematocrit 38.8, platelets 341, polys 75.1%. Sodium 137, potassium 3.5, chloride 100, carbon dioxide is 29, BUN 14, creatinine 1.3, glucose now is 255, calcium 9.9. BNP of 145. IMPRESSION: 1. Prerenal azotemia, which has resolved. 2. Bipolar disorder/psychosis. 3. Type 2 diabetes mellitus, out of control. 4. Dizziness/vomiting with weakness secondary to metabolic cause such as markedly out of control blood sugar. 5. Coronary artery disease. 6. Diabetic neuropathy. 7. History of cerebrovascular accident. 8. Dyslipidemia. 9. Essential hypertension. 10. Morbid obesity. PLAN: 1. The patient refused any IV insertion. I have encouraged him to increase his p.o. fluid intake. 2. The patient will need psych consult because he remains uncooperative and agitated. 3. Control of blood sugar. 4. Hold Lasix IV and consider switching later on to p.o. based upon volume status. 5. Urinalysis, urine spot sodium, eosinophils, creatinine, urine microalbumin to creatinine ratio. 6. Renal/bladder ultrasound. 7. Discontinue amiodarone because this can cause edema. Thank you, Dr. Meehan for this consult. We will follow the patient closely with you. JOB# [id number]
[2018-02-11 14:35] LABS: URINE MICROSCOPIC INDICATED? YES; URINE SOURCE MIDSTREAM
[2018-02-11 14:44] LABS: URINE BILIRUBIN NEGATIVE (NEGATIVE); URINE BLOOD MODERATE (NEGATIVE); URINE GLUCOSE (UA) >=1000 mg/dL (NEGATIVE); URINE KETONE NEGATIVE (NEGATIVE); URINE LEUKOCYTE ESTERASE NEGATIVE (NEGATIVE); URINE NITRATE NEGATIVE (NEGATIVE); URINE PH 6.5 (4.6 - 8.0); URINE PROTEIN >=300 mg/dL (NEGATIVE); URINE UROBILINOGEN 0.2 E.U./dL (0.2 - 1.0)
[2018-02-11 14:53] LABS: URINE CLARITY CLEAR (CLEAR); URINE COLOR YELLOW; URINE EPITHELIAL CELLS OCCASIONAL /lpf (FEW); URINE WBC 0-2 /hpf (0-5)
[2018-02-11 14:54] LABS: URINE BACTERIA NONE SEEN /hpf (NONE SEEN)
--- NOTE | 2018-02-11 15:54 | Cardiology ---
02/11/[address] Meehan. M-MODE ECHOCARDIOGRAM: Mitral valve, anterior leaflet of mitral valve shows decreased excursion, EF velocity. Posterior leaflet of the mitral valve shows decreased excursion. Left ventricular posterior valve shows increased thickness, decreased excursion. Interventricular septum shows increased thickness, decreased excursion, ejection fraction 40%. Left atrium enlarged at 4.4 cm. Aortic root showed normal dimension, normal excursion of aortic leaflets. CONCLUSION: Hypertrophy of the left ventricle, ejection fraction 40%, left atrial enlargement. 2D ECHO: Long axis view showed normal sized left ventricle shows enlarged left ventricular cavity with decreased ejection fraction, hypertrophy of the left ventricle. Left atrium enlarged. Aortic 4.4 cm. Aortic root showed normal dimension, normal excursion of aortic leaflets. Short axis view of mitral valve normal. Short axis view of aortic valve normal. Apical four chamber view shows enlarged left ventricular cavity with decreased ejection fraction. Left atrium enlarged. Right ventricular cavity, right atrium normal, no pericardial effusion. CONCLUSION: Cardiomyopathy, ejection fraction 40%, left atrial enlargement. Doppler study shows normal antegrade flow across the mitral valve, tricuspid aortic valve and pulmonary valve. JOB# [id number]
[2018-02-11 17:19] LABS: EOSINOPHIL SMEAR SOURCE URINE; EOSINOPHILS SMEAR COUNT NONE SEEN (NONE SEEN)
[2018-02-11] MEDS: INSULIN 70/30 100 UNITS/ML SUBQ SCH (17:22)
--- NOTE | 2018-02-12 00:36 | Consultation ---
DATE OF CONSULTATION: 02/11/2018 UROLOGY CONSULTATION REASON FOR CONSULTATION: Seen for complaints of difficulty urinating and some dysuria, but overall very poor historian and confusing history. He claims he has prostate problems for a long time, but would not commit to any timeframe and that he has taken Flomax, again without much benefit. Duration of any of his symptoms is unclear. Denies history of urinary infection, hematuria, retention or any kind of prostate surgery. Denies kidney problems as well. MEDICAL HISTORY: Positive for diabetes, hypertension and hyperlipidemia. He also has coronary artery disease, peripheral vascular disease and congestive heart failure leading to bilateral below-knee amputations. PAST SURGICAL HISTORY: Bilateral amputations. SOCIAL HISTORY: Denies tobacco, alcohol or drug use. Lives in an extended care facility. PSYCHIATRIC HISTORY: Apparently, diagnosed with schizophrenia and bipolar disorder. HOME MEDICATIONS: Include Catapres, Coreg, ____ insulin, Protonix, Zocor, Januvia and Flomax. ALLERGIES: PENICILLIN. REVIEW OF SYSTEMS: The patient was admitted with weakness, dizziness and altered level of consciousness. No headache or seizures. No chest pain, coughing or shortness of breath. No sore throat. Denied abdominal pain, vomiting or diarrhea. Urologic as described. No skin or joint problems. PHYSICAL EXAMINATION: GENERAL: He is awake, alert and oriented. VITAL SIGNS: Temperature 97.8, heart rate 88, blood pressure 157/87. Regular sinus rhythm. HEAD AND NECK: Normocephalic. Trachea is central. Pupils equal and reactive. No jaundice. Thyroid and lymph nodes not palpable. Carotid bruit absent. CHEST: Symmetrical. LUNGS: Clear. No rales or rhonchi. HEART: Heart sounds normal, in sinus rhythm, no murmur. ABDOMEN: Soft, obese and nontender. No organomegaly, mass or hernia. GENITALIA: Normal male. Scrotal contents normal. Penis circumcised and normal. RECTAL: Sphincter tone adequate. Prostate is small, 20-25 grams, smooth, benign and nontender. No nodules. EXTREMITIES: Bilateral below-knee amputations without edema or lymphadenopathy. NEUROLOGIC: Nonfocal. LABORATORY DATA: Urinalysis shows some blood and 5-10 red cells, otherwise unremarkable. Glucose levels are high at 347, 360, 331, 350 and so on. White count 10.8, hemoglobin 12.8 and platelets normal. Creatinine 1.3, BUN 14 indicating marginally good or borderline good or normal renal function. Nephrology evaluation shows prerenal azotemia, which has resolved and adjustments in some of his medications. IMPRESSION: Nonspecific urinary symptoms with questionable microscopic hematuria. Recommend prevoid and postvoid bladder ultrasound and if postvoid residual is elevated, we would recommend cystoscopy. If it is normal, we will repeat urinalysis as an outpatient and recommend cystoscopy if only there is substantial amount of red cells in the urine. The patient's symptoms for urinary tract not very convincing and reliable at this point to make other more significant recommendations. Multiple other medical conditions as reported including bipolar and schizophrenic disorder, coronary artery disease, diabetes, history of hypertension and hyperlipidemia with obesity. [facility]# [id number]
[2018-02-12] MEDS: Acetaminophen 500 MG TAB PO PRN ×3 (00:57→16:33)
[2018-02-12 01:21] LABS: URINE MICROSCOPIC INDICATED? YES; URINE SOURCE RANDOM
[2018-02-12 01:28] LABS: URINE BILIRUBIN NEGATIVE (NEGATIVE); URINE BLOOD MODERATE (NEGATIVE); URINE GLUCOSE (UA) >=1000 mg/dL (NEGATIVE); URINE KETONE NEGATIVE (NEGATIVE); URINE LEUKOCYTE ESTERASE NEGATIVE (NEGATIVE); URINE NITRATE NEGATIVE (NEGATIVE); URINE PROTEIN >=300 mg/dL (NEGATIVE); URINE UROBILINOGEN 0.2 E.U./dL (0.2 - 1.0)
[2018-02-12 03:01] LABS: URINE CLARITY HAZY (CLEAR); URINE COLOR YELLOW
[2018-02-12 03:22] LABS: URINE BACTERIA NONE SEEN /hpf (NONE SEEN); URINE EPITHELIAL CELLS NONE SEEN /lpf (FEW); URINE WBC 0-2 /hpf (0-5)
[2018-02-12 06:52] LABS: ANION GAP 10.1 (7.0-16.0); BUN - UREA NITROGEN 15 mg/dL (7-25); CALCIUM SERUM 9.6 mg/dL (8.6-10.3); CARBON DIOXIDE 27.4 mEq/L (21.0-31.0); CHLORIDE 103 mEq/L (98-107); CREATININE - SERUM 1.2 mg/dL (0.7-1.3); GFR AFRICAN-AMERICAN > 60.0 ml/min (>90); GFR NON AFRICAN-AMERICAN > 60.0 ml/min; GLUCOSE 212 mg/dL (70-105); MAGNESIUM 2.2 mg/dL (1.9-2.7); PHOSPHOROUS 3.3 mg/dL (2.5-5.0); POTASSIUM SERUM 3.5 mEq/L (3.5-5.1); SODIUM SERUM 137 mEq/L (136-145); URIC ACID 6.9 mg/dL (4.4-7.6)
[2018-02-12 06:55] LABS: % EOSINOPHILS 2.5 % (0.0-5.0); % LYMPHOCYTES 18.3 % (20.0-50.0); % NEUTROPHILS 70.2 % (40.0-80.0); BASOPHILE ABSOLUTE 0.1 Th/cumm (0-0.2); EOSINOPHILE ABSOLUTE 0.3 Th/cmm (0.1-0.4); HEMATOCRIT 39.5 % (41.0-60); HEMOGLOBIN 12.8 gm/dL (12-16); MEAN CELL VOLUME 80.9 fl (80-99); MEAN CORPUSCULAR HEMOGLOBIN 26.3 pg (27.0-31.0); MEAN CORPUSCULAR HGB CONC 32.5 pg (28.0-36.0); MEAN PLATELET VOLUME 8.4 fl; MONOCYTE ABSOLUTE 0.9 Th/cmm (0.3-1.0); NEUTROPHILE ABSOLUTE 7.6 Th/cmm (1.8-8.0); PLATELET COUNT 318 Th/cmm (150-400); RED BLOOD COUNT 4.88 Mil/cmm (3.80-5.80); RED CELL DISTRIBUTION WIDTH 14.3 % (11.5-20.0); WHITE BLOOD COUNT 10.9 Th/cmm (4.8-10.8)
[2018-02-12] MEDS: Multivitamin Tab PO SCH (08:23)
[2018-02-12] MEDS: Pantoprazole 40 mg EC Tab PO SCH (08:24)
[2018-02-12] MEDS: Aspirin 81mg Chewable Tab PO SCH (08:24)
[2018-02-12] MEDS: Potassium Chloride Elixir 20 mEq /15 mL UDC PO SCH (08:26)
[2018-02-12] MEDS: INSULIN ASPART SLIDING SCALE 100 UNITS/ML UNIT SUBQ SCH ×4 (08:27→21:26)
[2018-02-12] MEDS: INSULIN 70/30 100 UNITS/ML SUBQ SCH ×2 (08:28→16:25)
[2018-02-12] MEDS: Prednisolone 1% Ophth Susp 5 mL Bottle RIGHT EYE SCH ×4 (08:41→21:25)
--- NOTE | 2018-02-12 12:57 | General Progress Note ---
Subjective - Review of Systems Service Date: 02/12/18 Subjective: still agitated, irritable, angry Objective - Results Result Diagrams: 02/12/18 06:15 02/12/18 06:15 Recent Labs: Laboratory Last Values WBC 10.9 Th/cmm (4.8-10.8) H 02/12/18 06:15 RBC 4.88 Mil/cmm (3.80-5.80) 02/12/18 06:15 Hgb 12.8 gm/dL (12-16) 02/12/18 06:15 Hct 39.5 % (41.0-60) L 02/12/18 06:15 MCV 80.9 fl (80-99) 02/12/18 06:15 MCH 26.3 pg (27.0-31.0) L 02/12/18 06:15 MCHC Differential 32.5 pg (28.0-36.0) 02/12/18 06:15 RDW 14.3 % (11.5-20.0) 02/12/18 06:15 Plt Count 318 Th/cmm (150-400) 02/12/18 06:15 MPV 8.4 fl 02/12/18 06:15 Neutrophils % 70.2 % (40.0-80.0) 02/12/18 06:15 Lymphocytes % 18.3 % (20.0-50.0) L 02/12/18 06:15 Monocytes % 8.0 % (2.0-10.0) 02/12/18 06:15 Eosinophils % 2.5 % (0.0-5.0) 02/12/18 06:15 Basophils % 1.0 % (0.0-2.0) 02/12/18 06:15 Eos Smear Source URINE 02/11/18 14:15 Eos Smear Total Cells NONE SEEN (NONE SEEN) 02/11/18 14:15 PT 9.9 SECONDS (9.5-11.5) 02/09/18 18:02 INR 0.95 (0.5-1.4) 02/09/18 18:02 Sodium 137 mEq/L (136-145) 02/12/18 06:15 Potassium 3.5 mEq/L (3.5-5.1) 02/12/18 06:15 Chloride 103 mEq/L (98-107) 02/12/18 06:15 Carbon Dioxide 27.4 mEq/L (21.0-31.0) 02/12/18 06:15 Anion Gap 10.1 (7.0-16.0) 02/12/18 06:15 BUN 15 mg/dL (7-25) 02/12/18 06:15 Creatinine 1.2 mg/dL (0.7-1.3) 02/12/18 06:15 Est GFR ( Amer) > 60.0 ml/min (>90) 02/12/18 06:15 Est GFR (Non-Af Amer) > 60.0 ml/min 02/12/18 06:15 BUN/Creatinine Ratio 12.5 02/12/18 06:15 Glucose 212 mg/dL (70-105) H 02/12/18 06:15 POC Glucose 299 MG/DL (70 - 105) H 02/12/18 11:49 Hemoglobin A1c % 14.5 % (4.0-6.0) H 02/09/18 18:02 Uric Acid 6.9 mg/dL (4.4-7.6) 02/12/18 06:15 Calcium 9.6 mg/dL (8.6-10.3) 02/12/18 06:15 Phosphorus 3.3 mg/dL (2.5-5.0) 02/12/18 06:15 Magnesium 2.2 mg/dL (1.9-2.7) 02/12/18 06:15 Total Bilirubin 0.4 mg/dL (0.3-1.0) 02/09/18 18:02 AST 15 U/L (13-39) 02/09/18 18:02 ALT 10 U/L (7-52) 02/09/18 18:02 Alkaline Phosphatase 133 U/L (34-104) H 02/09/18 18:02 Creatine Kinase 292 U/L (30-223) H 02/09/18 18:02 CK-MB (CK-2) 3.2 ng/mL (0.6-6.3) 02/09/18 18:02 Troponin I 0.01 ng/mL (0.01-0.05) 02/09/18 18:02 B-Natriuretic Peptide 145.0 pg/mL (5.0-100.0) H 02/10/18 06:45 Total Protein 7.6 gm/dL (6.0-8.3) 02/09/18 18:02 Albumin 3.6 gm/dL (4.2-5.5) L 02/09/18 18:02 Globulin 4.0 gm/dL 02/09/18 18:02 Albumin/Globulin Ratio 0.9 (1.0-1.8) L 02/09/18 18:02 Triglycerides 131 mg/dL (<150) 02/09/18 18:02 Cholesterol 118 mg/dL (<200) 02/09/18 18:02 LDL Cholesterol Direct 64 mg/dL (75-193) L 02/09/18 18:02 HDL Cholesterol 36 mg/dL (23-92) 02/09/18 18:02 TSH 1.27 uIU/ml (0.34-5.60) 02/12/18 06:15 Urine Source RANDOM 02/12/18 00:55 Urine Color YELLOW 02/12/18 00:55 Urine Clarity HAZY (CLEAR) 02/12/18 00:55 Urine pH 6.0 (4.6 - 8.0) 02/12/18 00:55 Ur Specific [place] 1.025 (1.005-1.030) 02/12/18 00:55 Urine Protein >=300 mg/dL (NEGATIVE) 02/12/18 00:55 Urine Glucose (UA) >=1000 mg/dL (NEGATIVE) H 02/12/18 00:55 Urine Ketones NEGATIVE mg/dL (NEGATIVE) 02/12/18 00:55 Urine Blood MODERATE (NEGATIVE) H 02/12/18 00:55 Urine Nitrate NEGATIVE (NEGATIVE) 02/12/18 00:55 Urine Bilirubin NEGATIVE (NEGATIVE) 02/12/18 00:55 Urine Urobilinogen 0.2 E.U./dL (0.2 - 1.0) 02/12/18 00:55 Ur Leukocyte Esterase NEGATIVE (NEGATIVE) 02/12/18 00:55 Urine RBC 5-10 /hpf (0-5) H 02/12/18 00:55 Urine WBC 0-2 /hpf (0-5) 02/12/18 00:55 Ur Epithelial Cells NONE SEEN /lpf (FEW) 02/12/18 00:55 Urine Bacteria NONE SEEN /hpf (NONE SEEN) 02/12/18 00:55 Ur Random Sodium 51 mmol/L 02/11/18 14:15 Urine Creatinine 121.0 mg/dl (39.0-259.0) 02/11/18 14:15 - Physical Exam Vitals and I&O: Vital Signs Temp 97.9 F 02/12/18 12:00 Pulse 82 02/12/18 12:00 Resp 18 02/12/18 12:00 BP 167/83 02/12/18 12:00 Pulse Ox 100 02/12/18 12:00 Intake & Output 02/11/18 02/12/18 02/12/18 18:59 06:59 18:59 Intake Total 600 Output Total 500 500 Balance 100 -500 Weight (lbs) 128.82 kg 130.181 kg Intake: Oral 600 Output: Urine 500 500 Other: # Voids 3 # Bowel Movements 2 Stool Characteristics Formed Hard Weight Source Bedscale Bedscale Active Medications: Current Medications Acetaminophen (Tylenol) 650 mg PO Q4HR PRN PRN Reason: Mild Pain / Temp above 101 Stop: 04/11/18 16:44 Acetaminophen (Tylenol Extra Strength) 1,000 mg PO Q4HR PRN PRN Reason: MODERATE PAIN Stop: 04/11/18 16:44 Last Admin: 02/12/18 08:23 Dose: 1,000 mg Al Hydrox/Mg Hydrox/Simethicone (Maalox) 30 ml PO Q4HR PRN PRN Reason: GERD Stop: 04/11/18 16:44 Ascorbic Acid (Vitamin C) 500 mg PO DAILY [facility] Stop: 04/12/18 08:59 Last Admin: 02/12/18 08:24 Dose: 500 mg Aspirin (Aspirin Chewable) 81 mg PO DAILY [facility] Stop: 04/12/18 08:59 Last Admin: 02/12/18 08:24 Dose: 81 mg Carvedilol (Coreg) 25 mg PO BID [facility] Stop: 04/11/18 16:59 Last Admin: 02/12/18 08:24 Dose: 25 mg Docusate Sodium (Colace) 100 mg PO DAILY [facility] Stop: 04/12/18 08:59 Last Admin: 02/12/18 08:29 Dose: 100 mg Furosemide (Lasix) 60 mg PO BID [facility] Stop: 04/13/18 16:59 Glimepiride (Amaryl) 4 mg PO DAILY [facility] Stop: 04/12/18 08:59 Last Admin: 02/12/18 08:23 Dose: 4 mg Insulin Aspart (Novolog Insulin Sliding Scale) 0 units SUBQ ACHS [facility] PRN Reason: Protocol Stop: 04/11/18 20:59 Last Admin: 02/12/18 11:52 Dose: 4 units Insulin Human Isoph/Insulin Regular (Novolin 70/30) 40 units SUBQ BID [facility] PRN Reason: Protocol Stop: 04/12/18 12:09 Last Admin: 02/12/18 08:28 Dose: 40 unit Magnesium Hydroxide (Milk Of Magnesia) 30 ml PO HS PRN PRN Reason: Constipation Stop: 04/11/18 16:44 Multivitamins/Vitamin C (Theragran) 1 tab PO DAILY [facility] Stop: 04/12/18 08:59 Last Admin: 02/12/18 08:23 Dose: 1 tab Pantoprazole Sodium (Protonix) 40 mg PO DAILY [facility] Stop: 04/12/18 08:59 Last Admin: 02/12/18 08:24 Dose: 40 mg Potassium Chloride (Potassium Chloride Elixir) 10 meq PO DAILY [facility] Stop: 04/12/18 08:59 Last Admin: 02/12/18 08:26 Dose: 10 meq Prednisolone Acetate (Pred Forte 1% Ophth Susp) 1 drop RIGHT EYE QID [facility] Stop: 04/11/18 16:59 Last Admin: 02/12/18 08:41 Dose: 1 drop Quetiapine Fumarate (Seroquel) 300 mg PO HS [facility] PRN Reason: Protocol Stop: 04/11/18 20:59 Simvastatin (Zocor) 10 mg PO 1800 [facility] PRN Reason: Protocol Stop: 04/11/18 17:59 Last Admin: 02/11/18 17:24 Dose: 10 mg Sitagliptin Phosphate (Januvia) 50 mg PO DAILY [facility] Stop: 04/12/18 08:59 Last Admin: 02/12/18 08:24 Dose: 50 mg Tamsulosin HCl (Flomax) 0.4 mg PO HS [facility] Stop: 04/11/18 20:59 Last Admin: 02/11/18 21:19 Dose: 0.4 mg General: Alert, No acute distress HEENT: Atraumatic, Mucous membr. moist/pink Neck: Supple, +2 carotid pulse wo bruit Cardiovascular: Regular rate, Normal S1, Normal S2 Lungs: Clear to auscultation Abdomen: Bowel sounds, Soft, Obese Extremities: no Edema Neurological: Sensation intact Skin: no Rash Psych/Mental Status: Other (decompensation of psychosis) Assessment/Plan - Problem List Patient Problems: All Active Problems WEAKNESS WITH LOWER EXT SWELLING (Acute) - Assessment Assessment: Pre-renal Azotemia resolved Bipolar Ds./Psychosis T2DM OOC Ess Htn CAD Hx CVA Morbid Obesity - Plan Plan: Lab - Result Diagrams 02/12/18 06:15 02/12/18 06:15 Current Medications Acetaminophen (Tylenol) 650 mg PO Q4HR PRN PRN Reason: Mild Pain / Temp above 101 Stop: 04/11/18 16:44 Acetaminophen (Tylenol Extra Strength) 1,000 mg PO Q4HR PRN PRN Reason: MODERATE PAIN Stop: 04/11/18 16:44 Last Admin: 02/12/18 08:23 Dose: 1,000 mg Al Hydrox/Mg Hydrox/Simethicone (Maalox) 30 ml PO Q4HR PRN PRN Reason: GERD Stop: 04/11/18 16:44 Ascorbic Acid (Vitamin C) 500 mg PO DAILY [facility] Stop: 04/12/18 08:59 Last Admin: 02/12/18 08:24 Dose: 500 mg Aspirin (Aspirin Chewable) 81 mg PO DAILY [facility] Stop: 04/12/18 08:59 Last Admin: 02/12/18 08:24 Dose: 81 mg Carvedilol (Coreg) 25 mg PO BID [facility] Stop: 04/11/18 16:59 Last Admin: 02/12/18 08:24 Dose: 25 mg Docusate Sodium (Colace) 100 mg PO DAILY [facility] Stop: 04/12/18 08:59 Last Admin: 02/12/18 08:29 Dose: 100 mg Furosemide (Lasix) 60 mg PO BID [facility] Stop: 04/13/18 16:59 Glimepiride (Amaryl) 4 mg PO DAILY [facility] Stop: 04/12/18 08:59 Last Admin: 02/12/18 08:23 Dose: 4 mg Insulin Aspart (Novolog Insulin Sliding Scale) 0 units SUBQ ACHS [facility] PRN Reason: Protocol Stop: 04/11/18 20:59 Last Admin: 02/12/18 11:52 Dose: 4 units Insulin Human Isoph/Insulin Regular (Novolin 70/30) 40 units SUBQ BID [facility] PRN Reason: Protocol Stop: 04/12/18 12:09 Last Admin: 02/12/18 08:28 Dose: 40 unit Magnesium Hydroxide (Milk Of Magnesia) 30 ml PO HS PRN PRN Reason: Constipation Stop: 04/11/18 16:44 Multivitamins/Vitamin C (Theragran) 1 tab PO DAILY [facility] Stop: 04/12/18 08:59 Last Admin: 02/12/18 08:23 Dose: 1 tab Pantoprazole Sodium (Protonix) 40 mg PO DAILY [facility] Stop: 04/12/18 08:59 Last Admin: 02/12/18 08:24 Dose: 40 mg Potassium Chloride (Potassium Chloride Elixir) 10 meq PO DAILY [facility]: 08:59 Last Admin: 02/12/18 08:26 Dose: 10 meq Prednisolone Acetate (Pred Forte 1% Ophth Susp) 1 drop RIGHT EYE QID [facility] Stop: 04/11/18 16:59 Last Admin: 02/12/18 08:41 Dose: 1 drop Quetiapine Fumarate (Seroquel) 300 mg PO HS [facility] PRN Reason: Protocol Stop: 04/11/18 20:59 Simvastatin (Zocor) 10 mg PO 1800 [facility] PRN Reason: Protocol Stop: 04/11/18 17:59 Last Admin: 02/11/18 17:24 Dose: 10 mg Sitagliptin Phosphate (Januvia) 50 mg PO DAILY [facility] Stop: 04/12/18 08:59 Last Admin: 02/12/18 08:24 Dose: 50 mg Tamsulosin HCl (Flomax) 0.4 mg PO HS [facility] Stop: 04/11/18 20:59 Last Admin: 02/11/18 21:19 Dose: 0.4 mg Lab - Result Diagrams 02/12/18 06:15 02/12/18 06:15 kidney fnc stable doubt in CHF need psych eval Nutritional Asmnt/Malnutr-PDOC - Dietary Evaluation Malnutrition Findings (Please click <Entered> for more info): Nutritional Asmnt/Malnutrition Start: 02/10/18 16: 59 Text: Status: Complete Freq: Document 02/10/18 17:05 LCHENG (Rec: 02/10/18 17:11 LCHENG [id number]) Nutritional Asmnt/Malnutrition Patient General Information Nutritional Screening High Risk Diagnosis CHF Pertinent Medical Hx/Surgical Hx HTn, Dm, CAD, CHF, dyslipidemia, BKAs, schizophrenia, bipolar Subjective Information Pt seen sitting up in bed, awake and alert, hyperverbal. Pt reported good appetite. Per EMR, pt consumed 100% of breakfast this morning. Pt had bilateral BKA noted. Current Diet Order/ Nutrition Support CCHO 60gm Pertinent Medications vit C, colace, lasix, novolog, novolin, theragran, protinix, kcl, seroquel Pertinent Labs 02/10 glucose 340, POC 255-464 02/09 glucose 462, POC 461-485 Nutritional Hx/Data Height 1.83 m Height (Calculated Centimeters) 182.9 Current Weight (lbs) 128.82 kg Weight (Calculated Kilograms) 128.8 Weight (Calculated Grams) 729453.2 [place] Body Weight 157 Body Mass Index (BMI) 38.5 Weight Status Obese GI Symptoms GI Symptoms None Last BM 02/10 Difficult in: None Usual diet at home pt reported he was on diabetic 1800kcal diet and 2gm low sodium diet Skin Integrity/Comment: intact, abraham 13 Current %PO Good (75-100%) Estimated Nutritional Goals BEE in Kcals: Adj wt of IBW Calories/Kcals/Kg 23-27 Kcals Calculated Protein: Adj wt of IBW Protein g/k Protein Calculated Fluid: ml 1977-2321ml (1ml/ckal) Nutritional Problem 1. Problem Problem altered nutrition related labs Etiology hx of DM Signs/Symptoms: glucose 340-462, POC 255-485 Malnutrition Alert Protein-Calorie Malnutrition N/A Is there a minimum of two criteria No selected? Query Text:Check all the applicable criteria. A minimum of two criteria are recommended for diagnosis of either severe or non-severe malnutrition. Intervention/Recommendation Comments 1. Recommend adding 2gm low sodium diet d/t CHF 2. Monitor PO intake, wt, labs and skin integrity 3. F/U as moderate risk in 3-5 day, 02/13-02/15 Expected Outcomes/Goals Expected Outcomes/Goals 1. PO intake to meet at least 75% of nutritional needs. 2. Wt stability, skin to remain intact, labs to approach WNL.
--- NOTE | 2018-02-12 16:32 | Progress Notes ---
DATE: 02/12/2018 SUBJECTIVE: The patient was seen in his room, ____ the patient was having breakfast at this time. The patient complains of episodic shortness of breath and chest pain, but denies anything at this time. Otherwise, the patient appears to be in no acute distress. OBJECTIVE: VITAL SIGNS: Temperature 97.8, heart rate of 81, blood pressure 151/68, respirations of 20, and 93% on room air. HEENT: Head is atraumatic and normocephalic. Eyes: Bilateral conjunctivae are clear. Bilateral pupils are equally round and reactive. NECK: Supple. No JVD. CARDIOVASCULAR: S1, S2, without murmur. PULMONARY: Clear to auscultation. GASTROINTESTINAL: Soft and nontender without guarding. Positive bowel sounds. MUSCULOSKELETAL: No clubbing. No cyanosis noted. ASSESSMENT: 1. Bipolar disorder. 2. Diabetes. 3. Coronary artery disease. 4. Neuropathy. 5. Hyperlipidemia. 6. Hypertension. 7. Obesity. 8. History of cerebrovascular accident. PLAN: We will keep the patient inpatient. We will continue current medical treatment. We are waiting for psych consult due to the patient's refusal with treatment and episodes of agitation. Treatment plans were discussed with the patient's nurse. Treatment plans were discussed with Dr. Meehan. JOB# [id number]
[2018-02-13] MEDS: Potassium Chloride Elixir 20 mEq /15 mL UDC PO SCH (08:56)
[2018-02-13] MEDS: Pantoprazole 40 mg EC Tab PO SCH (08:58)
[2018-02-13] MEDS: Multivitamin Tab PO SCH (08:58)
[2018-02-13] MEDS: Aspirin 81mg Chewable Tab PO SCH (08:58)
[2018-02-13] MEDS: INSULIN 70/30 100 UNITS/ML SUBQ SCH ×2 (08:59→16:10)
[2018-02-13] MEDS: Prednisolone 1% Ophth Susp 5 mL Bottle RIGHT EYE SCH ×4 (08:59→21:30)
[2018-02-13] MEDS: INSULIN ASPART SLIDING SCALE 100 UNITS/ML UNIT SUBQ SCH ×5 (08:59→21:26)
--- NOTE | 2018-02-13 10:50 | Diagnostic Imaging Report ---
Exam: Ultrasound summation kidneys. HISTORY: Urinary retention. Findings: Real-time ultrasound examination of the kidneys performed multiple planes. The study demonstrates no evidence of obstructive uropathy or nephrolithiasis. The right kidney measures 11.5 x 5.8 x 6.8 cm. The left kidney measures 11.4 x 7.7 x 7.4 cm diameter. Prostate gland is enlarged up to 7 cm. The study limited due to patient lack of cooperation. IMPRESSION: Unremarkable exam of the kidneys Enlarged prostate gland.
--- NOTE | 2018-02-13 11:21 | General Progress Note ---
Subjective - Review of Systems Events since last encounter: continues to be irritable withdrawn no signs of pain Objective - Results Result Diagrams: 02/12/18 06:15 02/12/18 06:15 Recent Labs: Laboratory Last Values WBC 10.9 Th/cmm (4.8-10.8) H 02/12/18 06:15 RBC 4.88 Mil/cmm (3.80-5.80) 02/12/18 06:15 Hgb 12.8 gm/dL (12-16) 02/12/18 06:15 Hct 39.5 % (41.0-60) L 02/12/18 06:15 MCV 80.9 fl (80-99) 02/12/18 06:15 MCH 26.3 pg (27.0-31.0) L 02/12/18 06:15 MCHC Differential 32.5 pg (28.0-36.0) 02/12/18 06:15 RDW 14.3 % (11.5-20.0) 02/12/18 06:15 Plt Count 318 Th/cmm (150-400) 02/12/18 06:15 MPV 8.4 fl 02/12/18 06:15 Neutrophils % 70.2 % (40.0-80.0) 02/12/18 06:15 Lymphocytes % 18.3 % (20.0-50.0) L 02/12/18 06:15 Monocytes % 8.0 % (2.0-10.0) 02/12/18 06:15 Eosinophils % 2.5 % (0.0-5.0) 02/12/18 06:15 Basophils % 1.0 % (0.0-2.0) 02/12/18 06:15 Eos Smear Source URINE 02/11/18 14:15 Eos Smear Total Cells NONE SEEN (NONE SEEN) 02/11/18 14:15 PT 9.9 SECONDS (9.5-11.5) 02/09/18 18:02 INR 0.95 (0.5-1.4) 02/09/18 18:02 Sodium 137 mEq/L (136-145) 02/12/18 06:15 Potassium 3.5 mEq/L (3.5-5.1) 02/12/18 06:15 Chloride 103 mEq/L (98-107) 02/12/18 06:15 Carbon Dioxide 27.4 mEq/L (21.0-31.0) 02/12/18 06:15 Anion Gap 10.1 (7.0-16.0) 02/12/18 06:15 BUN 15 mg/dL (7-25) 02/12/18 06:15 Creatinine 1.2 mg/dL (0.7-1.3) 02/12/18 06:15 Est GFR ( Amer) > 60.0 ml/min (>90) 02/12/18 06:15 Est GFR (Non-Af Amer) > 60.0 ml/min 02/12/18 06:15 BUN/Creatinine Ratio 12.5 02/12/18 06:15 Glucose 212 mg/dL (70-105) H 02/12/18 06:15 POC Glucose 246 MG/DL (70 - 105) H 02/13/18 06:00 Hemoglobin A1c % 14.5 % (4.0-6.0) H 02/09/18 18:02 Uric Acid 6.9 mg/dL (4.4-7.6) 02/12/18 06:15 Calcium 9.6 mg/dL (8.6-10.3) 02/12/18 06:15 Phosphorus 3.3 mg/dL (2.5-5.0) 02/12/18 06:15 Magnesium 2.2 mg/dL (1.9-2.7) 02/12/18 06:15 Total Bilirubin 0.4 mg/dL (0.3-1.0) 02/09/18 18:02 AST 15 U/L (13-39) 02/09/18 18:02 ALT 10 U/L (7-52) 02/09/18 18:02 Alkaline Phosphatase 133 U/L (34-104) H 02/09/18 18:02 Creatine Kinase 292 U/L (30-223) H 02/09/18 18:02 CK-MB (CK-2) 3.2 ng/mL (0.6-6.3) 02/09/18 18:02 Troponin I 0.01 ng/mL (0.01-0.05) 02/09/18 18:02 B-Natriuretic Peptide 145.0 pg/mL (5.0-100.0) H 02/10/18 06:45 Total Protein 7.6 gm/dL (6.0-8.3) 02/09/18 18:02 Albumin 3.6 gm/dL (4.2-5.5) L 02/09/18 18:02 Globulin 4.0 gm/dL 02/09/18 18:02 Albumin/Globulin Ratio 0.9 (1.0-1.8) L 02/09/18 18:02 Triglycerides 131 mg/dL (<150) 02/09/18 18:02 Cholesterol 118 mg/dL (<200) 02/09/18 18:02 LDL Cholesterol Direct 64 mg/dL (75-193) L 02/09/18 18:02 HDL Cholesterol 36 mg/dL (23-92) 02/09/18 18:02 TSH 1.27 uIU/ml (0.34-5.60) 02/12/18 06:15 Urine Source RANDOM 02/12/18 00:55 Urine Color YELLOW 02/12/18 00:55 Urine Clarity HAZY (CLEAR) 02/12/18 00:55 Urine pH 6.0 (4.6 - 8.0) 02/12/18 00:55 Ur Specific [place] 1.025 (1.005-1.030) 02/12/18 00:55 Urine Protein >=300 mg/dL (NEGATIVE) 02/12/18 00:55 Urine Glucose (UA) >=1000 mg/dL (NEGATIVE) H 02/12/18 00:55 Urine Ketones NEGATIVE mg/dL (NEGATIVE) 02/12/18 00:55 Urine Blood MODERATE (NEGATIVE) H 02/12/18 00:55 Urine Nitrate NEGATIVE (NEGATIVE) 02/12/18 00:55 Urine Bilirubin NEGATIVE (NEGATIVE) 02/12/18 00:55 Urine Urobilinogen 0.2 E.U./dL (0.2 - 1.0) 02/12/18 00:55 Ur Leukocyte Esterase NEGATIVE (NEGATIVE) 02/12/18 00:55 Urine RBC 5-10 /hpf (0-5) H 02/12/18 00:55 Urine WBC 0-2 /hpf (0-5) 02/12/18 00:55 Ur Epithelial Cells NONE SEEN /lpf (FEW) 02/12/18 00:55 Urine Bacteria NONE SEEN /hpf (NONE SEEN) 02/12/18 00:55 Ur Random Sodium 51 mmol/L 02/11/18 14:15 Urine Creatinine 121.0 mg/dl (39.0-259.0) 02/11/18 14:15 - Physical Exam Vitals and I&O: Vital Signs Temp 98.4 F 02/13/18 04:30 Pulse 91 02/13/18 08:56 Resp 18 02/13/18 04:30 BP 145/77 02/13/18 08:58 Pulse Ox 96 02/13/18 04:30 Intake & Output 02/12/18 02/13/18 02/13/18 18:59 06:59 18:59 Intake Total 1000 500 Balance 1000 500 Weight (lbs) 130.181 kg 129.274 kg Intake: Oral 1000 500 Other: # Voids 3 3 # Bowel Movements 1 Stool Characteristics Formed Hard Weight Source Bedscale Bedscale Active Medications: Current Medications Acetaminophen (Tylenol) 650 mg PO Q4HR PRN PRN Reason: Mild Pain / Temp above 101 Stop: 04/11/18 16:44 Acetaminophen (Tylenol Extra Strength) 1,000 mg PO Q4HR PRN PRN Reason: MODERATE PAIN Stop: 04/11/18 16:44 Last Admin: 02/12/18 16:33 Dose: 1,000 mg Al Hydrox/Mg Hydrox/Simethicone (Maalox) 30 ml PO Q4HR PRN PRN Reason: GERD Stop: 04/11/18 16:44 Ascorbic Acid (Vitamin C) 500 mg PO DAILY [facility] Stop: 04/12/18 08:59 Last Admin: 02/13/18 08:58 Dose: 500 mg Aspirin (Aspirin Chewable) 81 mg PO DAILY [facility] Stop: 04/12/18 08:59 Last Admin: 02/13/18 08:58 Dose: 81 mg Carvedilol (Coreg) 25 mg PO BID [facility] Stop: 04/11/18 16:59 Last Admin: 02/13/18 08:56 Dose: 25 mg Docusate Sodium (Colace) 100 mg PO DAILY [facility] Stop: 04/12/18 08:59 Last Admin: 02/13/18 08:56 Dose: 100 mg Furosemide (Lasix) 60 mg PO BID [facility] Stop: 04/13/18 16:59 Last Admin: 02/13/18 08:58 Dose: 60 mg Glimepiride (Amaryl) 4 mg PO DAILY [facility] Stop: 04/12/18 08:59 Last Admin: 02/13/18 08:58 Dose: 4 mg Insulin Aspart (Novolog Insulin Sliding Scale) 0 units SUBQ ACHS [facility] PRN Reason: Protocol Stop: 04/11/18 20:59 Last Admin: 02/13/18 09:05 Dose: 3 units Insulin Human Isoph/Insulin Regular (Novolin 70/30) 40 units SUBQ BID [facility] PRN Reason: Protocol Stop: 04/12/18 12:09 Last Admin: 02/13/18 08:59 Dose: 40 unit Magnesium Hydroxide (Milk Of Magnesia) 30 ml PO HS PRN PRN Reason: Constipation Stop: 04/11/18 16:44 Morphine Sulfate (Morphine Ir) 15 mg PO BID PRN PRN Reason: severe pain Stop: 04/13/18 22:29 Last Admin: 02/12/18 22:23 Dose: 15 mg Multivitamins/Vitamin C (Theragran) 1 tab PO DAILY [facility] Stop: 04/12/18 08:59 Last Admin: 02/13/18 08:58 Dose: 1 tab Pantoprazole Sodium (Protonix) 40 mg PO DAILY [facility] Stop: 04/12/18 08:59 Last Admin: 02/13/18 08:58 Dose: 40 mg Potassium Chloride (Potassium Chloride Elixir) 10 meq PO DAILY [facility] Stop: 04/12/18 08:59 Last Admin: 02/13/18 08:56 Dose: 10 meq Prednisolone Acetate (Pred Forte 1% Ophth Susp) 1 drop RIGHT EYE QID [facility] Stop: 04/11/18 16:59 Last Admin: 02/13/18 08:59 Dose: 1 drop Quetiapine Fumarate (Seroquel) 300 mg PO HS [facility] PRN Reason: Protocol Stop: 04/11/18 20:59 Last Admin: 02/12/18 21:24 Dose: 300 mg Simvastatin (Zocor) 10 mg PO 1800 [facility] PRN Reason: Protocol Stop: 04/11/18 17:59 Last Admin: 02/12/18 18:42 Dose: 10 mg Sitagliptin Phosphate (Januvia) 50 mg PO DAILY [facility] Stop: 04/12/18 08:59 Last Admin: 02/13/18 08:59 Dose: 50 mg Tamsulosin HCl (Flomax) 0.4 mg PO HS [facility] Stop: 04/11/18 20:59 Last Admin: 02/12/18 21:25 Dose: 0.4 mg General: Alert, No acute distress HEENT: Atraumatic, Mucous membr. moist/pink Neck: Supple, +2 carotid pulse wo bruit Cardiovascular: Regular rate, Normal S1, Normal S2 Lungs: Clear to auscultation Abdomen: Bowel sounds, Soft, Obese Extremities: no Edema Neurological: Sensation intact Skin: no Rash Psych/Mental Status: Other (decompensation of psychosis) Assessment/Plan - Problem List Patient Problems: All Active Problems WEAKNESS WITH LOWER EXT SWELLING (Acute) Nutritional Asmnt/Malnutr-PDOC - Dietary Evaluation Malnutrition Findings (Please click <Entered> for more info): Nutritional Asmnt/Malnutrition Start: 02/10/18 16: 59 Text: Status: Complete Freq: Document 02/10/18 17:05 EZ (Rec: 02/10/18 17:11 EZ [email or web address]) Nutritional Asmnt/Malnutrition Patient General Information Nutritional Screening High Risk Diagnosis CHF Pertinent Medical Hx/Surgical Hx HTn, Dm, CAD, CHF, dyslipidemia, BKAs, schizophrenia, bipolar Subjective Information Pt seen sitting up in bed, awake and alert, hyperverbal. Pt reported good appetite. Per EMR, pt consumed 100% of breakfast this morning. Pt had bilateral BKA noted. Current Diet [facility]/ [facility] Pertinent Medications vit C, colace, lasix, novolog, novolin, theragran, protinix, kcl, seroquel Pertinent Labs 02/10 glucose 340, POC 255-464 02/09 glucose 462, POC 461-485 Nutritional Hx/Data Height 1.83 m Height (Calculated Centimeters) 182.9 Current Weight (lbs) 128.82 kg Weight (Calculated Kilograms) 128.8 Weight (Calculated Grams) 733784.2 [place] Body Weight 157 Body Mass Index (BMI) 38.5 Weight Status Obese GI Symptoms GI Symptoms None Last BM 02/10 Difficult in: None Usual diet at home pt reported he was on diabetic 1800kcal diet and 2gm low sodium diet Skin Integrity/Comment: intact, abraham 13 Current %PO Good (75-100%) Estimated Nutritional Goals BEE in Kcals: Adj wt of IBW Calories/Kcals/Kg 23-27 Kcals Calculated Protein: Adj wt of IBW Protein g/k Protein Calculated 86 Fluid: ml 1977-2321ml (1ml/ckal) Nutritional Problem 1. Problem Problem altered nutrition related labs Etiology hx of DM Signs/Symptoms: glucose 340-462, POC 255-485 Malnutrition Alert Protein-Calorie Malnutrition N/A Is there a minimum of two criteria No selected? Query Text:Check all the applicable criteria. A minimum of two criteria are recommended for diagnosis of either severe or non-severe malnutrition. Intervention/Recommendation Comments 1. Recommend adding 2gm low sodium diet d/t CHF 2. Monitor PO intake, wt, labs and skin integrity 3. F/U as moderate risk in 3-5 day, 02/13-02/15 Expected Outcomes/Goals Expected Outcomes/Goals 1. PO intake to meet at least 75% of nutritional needs. 2. Wt stability, skin to remain intact, labs to approach WNL.
--- NOTE | 2018-02-13 17:32 | General Progress Note ---
Subjective - Review of Systems Service Date: 02/13/18 Subjective: still agitated, irritable, angry Objective - Results Result Diagrams: 02/12/18 06:15 02/12/18 06:15 Recent Labs: Laboratory Last Values WBC 10.9 Th/cmm (4.8-10.8) H 02/12/18 06:15 RBC 4.88 Mil/cmm (3.80-5.80) 02/12/18 06:15 Hgb 12.8 gm/dL (12-16) 02/12/18 06:15 Hct 39.5 % (41.0-60) L 02/12/18 06:15 MCV 80.9 fl (80-99) 02/12/18 06:15 MCH 26.3 pg (27.0-31.0) L 02/12/18 06:15 MCHC Differential 32.5 pg (28.0-36.0) 02/12/18 06:15 RDW 14.3 % (11.5-20.0) 02/12/18 06:15 Plt Count 318 Th/cmm (150-400) 02/12/18 06:15 MPV 8.4 fl 02/12/18 06:15 Neutrophils % 70.2 % (40.0-80.0) 02/12/18 06:15 Lymphocytes % 18.3 % (20.0-50.0) L 02/12/18 06:15 Monocytes % 8.0 % (2.0-10.0) 02/12/18 06:15 Eosinophils % 2.5 % (0.0-5.0) 02/12/18 06:15 Basophils % 1.0 % (0.0-2.0) 02/12/18 06:15 Eos Smear Source URINE 02/11/18 14:15 Eos Smear Total Cells NONE SEEN (NONE SEEN) 02/11/18 14:15 PT 9.9 SECONDS (9.5-11.5) 02/09/18 18:02 INR 0.95 (0.5-1.4) 02/09/18 18:02 Sodium 137 mEq/L (136-145) 02/12/18 06:15 Potassium 3.5 mEq/L (3.5-5.1) 02/12/18 06:15 Chloride 103 mEq/L (98-107) 02/12/18 06:15 Carbon Dioxide 27.4 mEq/L (21.0-31.0) 02/12/18 06:15 Anion Gap 10.1 (7.0-16.0) 02/12/18 06:15 BUN 15 mg/dL (7-25) 02/12/18 06:15 Creatinine 1.2 mg/dL (0.7-1.3) 02/12/18 06:15 Est GFR ( Amer) > 60.0 ml/min (>90) 02/12/18 06:15 Est GFR (Non-Af Amer) > 60.0 ml/min 02/12/18 06:15 BUN/Creatinine Ratio 12.5 02/12/18 06:15 Glucose 212 mg/dL (70-105) H 02/12/18 06:15 POC Glucose 223 MG/DL (70 - 105) H 02/13/18 16:08 Hemoglobin A1c % 14.5 % (4.0-6.0) H 02/09/18 18:02 Uric Acid 6.9 mg/dL (4.4-7.6) 02/12/18 06:15 Calcium 9.6 mg/dL (8.6-10.3) 02/12/18 06:15 Phosphorus 3.3 mg/dL (2.5-5.0) 02/12/18 06:15 Magnesium 2.2 mg/dL (1.9-2.7) 02/12/18 06:15 Total Bilirubin 0.4 mg/dL (0.3-1.0) 02/09/18 18:02 AST 15 U/L (13-39) 02/09/18 18:02 ALT 10 U/L (7-52) 02/09/18 18:02 Alkaline Phosphatase 133 U/L (34-104) H 02/09/18 18:02 Creatine Kinase 292 U/L (30-223) H 02/09/18 18:02 CK-MB (CK-2) 3.2 ng/mL (0.6-6.3) 02/09/18 18:02 Troponin I 0.01 ng/mL (0.01-0.05) 02/09/18 18:02 B-Natriuretic Peptide 145.0 pg/mL (5.0-100.0) H 02/10/18 06:45 Total Protein 7.6 gm/dL (6.0-8.3) 02/09/18 18:02 Albumin 3.6 gm/dL (4.2-5.5) L 02/09/18 18:02 Globulin 4.0 gm/dL 02/09/18 18:02 Albumin/Globulin Ratio 0.9 (1.0-1.8) L 02/09/18 18:02 Triglycerides 131 mg/dL (<150) 02/09/18 18:02 Cholesterol 118 mg/dL (<200) 02/09/18 18:02 LDL Cholesterol Direct 64 mg/dL (75-193) L 02/09/18 18:02 HDL Cholesterol 36 mg/dL (23-92) 02/09/18 18:02 TSH 1.27 uIU/ml (0.34-5.60) 02/12/18 06:15 Urine Source RANDOM 02/12/18 00:55 Urine Color YELLOW 02/12/18 00:55 Urine Clarity HAZY (CLEAR) 02/12/18 00:55 Urine pH 6.0 (4.6 - 8.0) 02/12/18 00:55 Ur Specific [place] 1.025 (1.005-1.030) 02/12/18 00:55 Urine Protein >=300 mg/dL (NEGATIVE) 02/12/18 00:55 Urine Glucose (UA) >=1000 mg/dL (NEGATIVE) H 02/12/18 00:55 Urine Ketones NEGATIVE mg/dL (NEGATIVE) 02/12/18 00:55 Urine Blood MODERATE (NEGATIVE) H 02/12/18 00:55 Urine Nitrate NEGATIVE (NEGATIVE) 02/12/18 00:55 Urine Bilirubin NEGATIVE (NEGATIVE) 02/12/18 00:55 Urine Urobilinogen 0.2 E.U./dL (0.2 - 1.0) 02/12/18 00:55 Ur Leukocyte Esterase NEGATIVE (NEGATIVE) 02/12/18 00:55 Urine RBC 5-10 /hpf (0-5) H 02/12/18 00:55 Urine WBC 0-2 /hpf (0-5) 02/12/18 00:55 Ur Epithelial Cells NONE SEEN /lpf (FEW) 02/12/18 00:55 Urine Bacteria NONE SEEN /hpf (NONE SEEN) 02/12/18 00:55 Ur Random Sodium 51 mmol/L 02/11/18 14:15 Urine Creatinine 121.0 mg/dl (39.0-259.0) 02/11/18 14:15 - Physical Exam Vitals and I&O: Vital Signs Temp 98.1 F 02/13/18 12:00 Pulse 91 02/13/18 16:43 Resp 18 02/13/18 12:00 BP 131/77 02/13/18 16:44 Pulse Ox 100 02/13/18 12:00 Intake & Output 02/12/18 02/13/18 02/13/18 18:59 06:59 18:59 Intake Total 1000 500 Balance 1000 500 Weight (lbs) 130.181 kg 129.274 kg Intake: Oral 1000 500 Other: # Voids 3 3 # Bowel Movements 1 Stool Characteristics Formed Hard Hard Brown Weight Source Bedscale Bedscale Active Medications: Current Medications Acetaminophen (Tylenol) 650 mg PO Q4HR PRN PRN Reason: Mild Pain / Temp above 101 Stop: 04/11/18 16:44 Acetaminophen (Tylenol Extra Strength) 1,000 mg PO Q4HR PRN PRN Reason: MODERATE PAIN Stop: 04/11/18 16:44 Last Admin: 02/12/18 16:33 Dose: 1,000 mg Al Hydrox/Mg Hydrox/Simethicone (Maalox) 30 ml PO Q4HR PRN PRN Reason: GERD Stop: 04/11/18 16:44 Ascorbic Acid (Vitamin C) 500 mg PO DAILY KWAME Stop: 04/12/18 08:59 Last Admin: 02/13/18 08:58 Dose: 500 mg Aspirin (Aspirin Chewable) 81 mg PO DAILY KWAME Stop: 04/12/18 08:59 Last Admin: 02/13/18 08:58 Dose: 81 mg Carvedilol (Coreg) 25 mg PO BID KWAME Stop: 04/11/18 16:59 Last Admin: 02/13/18 16:43 Dose: 25 mg Docusate Sodium (Colace) 100 mg PO DAILY KWAME Stop: 04/12/18 08:59 Last Admin: 02/13/18 08:56 Dose: 100 mg Furosemide (Lasix) 60 mg PO BID [facility] Stop: 04/13/18 16:59 Last Admin: 02/13/18 16:44 Dose: 60 mg Glimepiride (Amaryl) 4 mg PO DAILY [facility] Stop: 04/12/18 08:59 Last Admin: 02/13/18 08:58 Dose: 4 mg Insulin Aspart (Novolog Insulin Sliding Scale) 0 units SUBQ ACHS KWAME PRN Reason: Protocol Stop: 04/11/18 20:59 Last Admin: 02/13/18 16:09 Dose: 3 units Insulin Human Isoph/Insulin Regular (Novolin 70/30) 40 units SUBQ BID KWAME PRN Reason: Protocol Stop: 04/12/18 12:09 Last Admin: 02/13/18 16:10 Dose: 40 unit Magnesium Hydroxide (Milk Of Magnesia) 30 ml PO HS PRN PRN Reason: Constipation Stop: 04/11/18 16:44 Morphine Sulfate (Morphine Ir) 15 mg PO BID PRN PRN Reason: severe pain Stop: 04/13/18 22:29 Last Admin: 02/12/18 22:23 Dose: 15 mg Multivitamins/Vitamin C (Theragran) 1 tab PO DAILY [facility] Stop: 04/12/18 08:59 Last Admin: 02/13/18 08:58 Dose: 1 tab Pantoprazole Sodium (Protonix) 40 mg PO DAILY KWAME Stop: 04/12/18 08:59 Last Admin: 02/13/18 08:58 Dose: 40 mg Potassium Chloride (Potassium Chloride Elixir) 10 meq PO DAILY KWAME Stop: 04/12/18 08:59 Last Admin: 02/13/18 08:56 Dose: 10 meq Prednisolone Acetate (Pred Forte 1% Ophth Susp) 1 drop RIGHT EYE QID [facility] Stop: 04/11/18 16:59 Last Admin: 02/13/18 16:12 Dose: 1 drop Quetiapine Fumarate (Seroquel) 300 mg PO HS KWAME PRN Reason: Protocol Stop: 04/11/18 20:59 Last Admin: 02/12/18 21:24 Dose: 300 mg Simvastatin (Zocor) 10 mg PO 1800 KWAME PRN Reason: Protocol Stop: 04/11/18 17:59 Last Admin: 02/13/18 17:15 Dose: 10 mg Sitagliptin Phosphate (Januvia) 50 mg PO DAILY [facility] Stop: 04/12/18 08:59 Last Admin: 02/13/18 08:59 Dose: 50 mg Tamsulosin HCl (Flomax) 0.4 mg PO HS [facility] Stop: 04/11/18 20:59 Last Admin: 02/12/18 21:25 Dose: 0.4 mg General: Alert, No acute distress HEENT: Atraumatic, Mucous membr. moist/pink Neck: Supple, +2 carotid pulse wo bruit Cardiovascular: Regular rate, Normal S1, Normal S2 Lungs: Clear to auscultation Abdomen: Bowel sounds, Soft, Obese Extremities: no Edema Neurological: Sensation intact Skin: no Rash Psych/Mental Status: Other (decompensation of psychosis) Assessment/Plan - Problem List Patient Problems: All Active Problems WEAKNESS WITH LOWER EXT SWELLING (Acute) - Assessment Assessment: Pre-renal Azotemia resolved Bipolar Ds./Psychosis T2DM OOC Ess Htn CAD Hx CVA Morbid Obesity - Plan Plan: Lab - Result Diagrams 02/12/18 06:15 02/12/18 06:15 Current Medications Acetaminophen (Tylenol) 650 mg PO Q4HR PRN PRN Reason: Mild Pain / Temp above 101 Stop: 04/11/18 16:44 Acetaminophen (Tylenol Extra Strength) 1,000 mg PO Q4HR PRN PRN Reason: MODERATE PAIN Stop: 04/11/18 16:44 Last Admin: 02/12/18 08:23 Dose: 1,000 mg Al Hydrox/Mg Hydrox/Simethicone (Maalox) 30 ml PO Q4HR PRN PRN Reason: GERD Stop: 04/11/18 16:44 Ascorbic Acid (Vitamin C) 500 mg PO DAILY KWAME Stop: 04/12/18 08:59 Last Admin: 02/12/18 08:24 Dose: 500 mg Aspirin (Aspirin Chewable) 81 mg PO DAILY KWAME Stop: 04/12/18 08:59 Last Admin: 02/12/18 08:24 Dose: 81 mg Carvedilol (Coreg) 25 mg PO BID K[facility]AME Stop: 04/11/18 16:59 Last Admin: 02/12/18 08:24 Dose: 25 mg Docusate Sodium (Colace) 100 mg PO DAILY KWAME Stop: 04/12/18 08:59 Last Admin: 02/12/18 08:29 Dose: 100 mg Furosemide (Lasix) 60 mg PO BID [facility] Stop: 04/13/18 16:59 Glimepiride (Amaryl) 4 mg PO DAILY KWAME Stop: 04/12/18 08:59 Last Admin: 02/12/18 08:23 Dose: 4 mg Insulin Aspart (Novolog Insulin Sliding Scale) 0 units SUBQ ACHS KWAME PRN Reason: Protocol Stop: 04/11/18 20:59 Last Admin: 02/12/18 11:52 Dose: 4 units Insulin Human Isoph/Insulin Regular (Novolin 70/30) 40 units SUBQ BID KWAME PRN Reason: Protocol Stop: 04/12/18 12:09 Last Admin: 02/12/18 08:28 Dose: 40 unit Magnesium Hydroxide (Milk Of Magnesia) 30 ml PO HS PRN PRN Reason: Constipation Stop: 04/11/18 16:44 Multivitamins/Vitamin C (Theragran) 1 tab PO DAILY KWAME Stop: 04/12/18 08:59 Last Admin: 02/12/18 08:23 Dose: 1 tab Pantoprazole Sodium (Protonix) 40 mg PO DAILY KWAME Stop: 04/12/18 08:59 Last Admin: 02/12/18 08:24 Dose: 40 mg Potassium Chloride (Potassium Chloride Elixir) 10 meq PO DAILY SCHStop: 08:59 Last Admin: 02/12/18 08:26 Dose: 10 meq Prednisolone Acetate (Pred Forte 1% Ophth Susp) 1 drop RIGHT EYE QID KWAME Stop: 04/11/18 16:59 Last Admin: 02/12/18 08:41 Dose: 1 drop Quetiapine Fumarate (Seroquel) 300 mg PO HS KWAME PRN Reason: Protocol Stop: 04/11/18 20:59 Simvastatin (Zocor) 10 mg PO 1800 KWAME PRN Reason: Protocol Stop: 04/11/18 17:59 Last Admin: 02/11/18 17:24 Dose: 10 mg Sitagliptin Phosphate (Januvia) 50 mg PO DAILY KWAME Stop: 04/12/18 08:59 Last Admin: 02/12/18 08:24 Dose: 50 mg Tamsulosin HCl (Flomax) 0.4 mg PO HS KWAME Stop: 04/11/18 20:59 Last Admin: 02/11/18 21:19 Dose: 0.4 mg Lab - Result Diagrams 02/12/18 06:15 02/12/18 06:15 kidney fnc stable doubt in CHF need psych eval will follow as needed Nutritional Asmnt/Malnutr-PDOC - Dietary Evaluation Malnutrition Findings (Please click <Entered> for more info): Nutritional Asmnt/Malnutrition Start: 02/10/18 16: 59 Text: Status: Complete Freq: Document 02/10/18 17:05 CAROLOSWALD (Rec: 02/10/18 17:11 [email or web address] [email or web address]) Nutritional Asmnt/Malnutrition Patient General Information Nutritional Screening High Risk Diagnosis CHF Pertinent Medical Hx/Surgical Hx HTn, Dm, CAD, CHF, dyslipidemia, BKAs, schizophrenia, bipolar Subjective Information Pt seen sitting up in bed, awake and alert, hyperverbal. Pt reported good appetite. Per EMR, pt consumed 100% of breakfast this morning. Pt had bilateral BKA noted. Current Diet Order/ Nutrition Support CCHO 60gm Pertinent Medications vit C, colace, lasix, novolog, novolin, theragran, protinix, kcl, seroquel Pertinent Labs 02/10 glucose 340, POC 255-464 02/09 glucose 462, POC 461-485 Nutritional Hx/Data Height 1.83 m Height (Calculated Centimeters) 182.9 Current Weight (lbs) 128.82 kg Weight (Calculated Kilograms) 128.8 Weight (Calculated Grams) 846645.2 [place] Body Weight 157 Body Mass Index (BMI) 38.5 Weight Status Obese GI Symptoms GI Symptoms None Last BM 02/10 Difficult in: None Usual diet at home pt reported he was on diabetic 1800kcal diet and 2gm low sodium diet Skin Integrity/Comment: abraham mccarty 13 Current %PO Good (75-100%) Estimated Nutritional Goals BEE in Kcals: Adj wt of IBW Calories/Kcals/Kg 23-27 Kcals Calculated Protein: Adj wt of IBW Protein g/k Protein Calculated Fluid: ml 1977-2321ml (1ml/ckal) Nutritional Problem 1. Problem Problem altered nutrition related labs Etiology hx of DM Signs/Symptoms: glucose 340-462, POC 255-485 Malnutrition Alert Protein-Calorie Malnutrition N/A Is there a minimum of two criteria No selected? Query Text:Check all the applicable criteria. A minimum of two criteria are recommended for diagnosis of either severe or non-severe malnutrition. Intervention/Recommendation Comments 1. Recommend adding 2gm low sodium diet d/t CHF 2. Monitor PO intake, wt, labs and skin integrity 3. F/U as moderate risk in 3-5 day, 02/13-02/15 Expected Outcomes/Goals Expected Outcomes/Goals 1. PO intake to meet at least 75% of nutritional needs. 2. Wt stability, skin to remain intact, labs to approach WNL.
--- NOTE | 2018-02-13 18:14 | Consultation ---
DATE OF CONSULTATION: 02/13/2018 HISTORY OF PRESENT ILLNESS: A 67-year-old male, seems to have a history of mental illness. Currently, in the hospital for medical problems, history of cardiomyopathy, low ejection fraction, history of systolic failure in the past, generalized anasarca. The patient here because of increased weakness, dizziness. The patient fairly well oriented on exam. He knows where he is. He knows why he is here. He tells me of a long history of mental illness conserved by the courts, forced to take medications by the courts. He is denying any depression, no anxiety. Sleeping okay. Denying any voices or hallucinations at this time. PAST PSYCHIATRIC HISTORY: It seems he may have history of schizophrenia, history of voices and paranoia's in the past. Under medical, please see full H and P along with medications were noted. He states the court makes him take Seroquel and he is agreeable to take Seroquel at least while he is here. He is trying to fight the courts to stop the Seroquel. It is unclear as to why he is denying any side effects. SOCIAL HISTORY: The patient was born in [place], single, not . He states he had 3 children, 1 , currently with 2 children, but did not really in touch with them. The patient denies any drugs, alcohol or tobacco over the last 20 years. The patient currently living in [facility]. MENTAL STATUS EXAMINATION: Stated age, overweight male, fair eye contact. Mood "okay." Affect constricted. Thought processes were tangential, but redirectable. No SI, no HI. Denies any psychosis. Insight and judgment reasonable, amenable to treatment. PROVISIONAL DIAGNOSIS: Schizophrenia. MEDICAL: Please see full H and P. RECOMMENDATIONS AND PLAN: The patient fairly stable from a psychiatric perspective. Denying any overt symptoms. He does not appear to be unruly or agitated. We will continue Seroquel at current dose. It seems this may be court ordered. It is unclear if he is conserved or not. We will monitor and follow up. JOB# [id number]
--- NOTE | 2018-02-13 18:37 | Consultation ---
Consult Note - Consult Note Service Date: 02/13/18 Referring Physician: Bob Meehan Consult Note: PHYSICIAN Consultation Note: Date of Admission: 02/09/18 Purpose of Consultation: fungal infection. Chief Complaint: Patient DEV CHOU was admitted to location [facility] I with CHF DM UNCONTROLLED HTN. History of Present Illness: 67 year old male with history of DM2, HTN, Cardiomyopathy, admitted to the hospital for dysuria and decrease in urine put. He was seen at the [facility] and and diagnosed to have fungal urethritis and treated by Lamisil. He felt better. However, he had developed similar symptoms. So he was admitted to the hospital for further care. UA showed microhematuria, renal us showed prostatomegaly. ID consult was called for antibiotic management. He stated that he was doing well with Flomax, but, lately, he was experiencing same symptoms.He stated that his urine out put has decreased lately. Past Medical History: DM2, HTN, Cardiomyopathy, BPH ( was taking flomax). Diagnoses TYPE 2 DIABETES MELLITUS WITH HYPERGLYCEMIA (02/09/18) HYPERLIPIDEMIA, UNSPECIFIED (02/09/18) DEHYDRATION (02/09/18) UNSP PSYCHOSIS NOT DUE TO A SUBSTANCE OR KNOWN PHYSIOL COND (02/09/18) ATHSCL HEART DISEASE OF [place] CORONARY ARTERY W/O ANG PCTRS (02/09/18) CARDIOMYOPATHY, UNSPECIFIED (02/09/18) UNSPECIFIED SYSTOLIC (CONGESTIVE) HEART FAILURE (02/09/18) DIZZINESS AND GIDDINESS (02/09/18) Allergies Allergy/AdvReac Type Severity Reaction Status Date / Time Penicillins Allergy Verified 06/21/17 18:22 Vital Signs Temp 98.1 F 02/13/18 12:00 Pulse 91 02/13/18 16:43 Resp 18 02/13/18 12:00 BP 131/77 02/13/18 16:44 Pulse Ox 100 02/13/18 12:00 Intake & Output 02/12/18 02/13/18 02/13/18 18:59 06:59 18:59 Intake Total 1000 500 Balance 1000 500 Weight (lbs) 130.181 kg 129.274 kg Intake: Oral 1000 500 Other: # Voids 3 3 # Bowel Movements 1 Stool Characteristics Formed Hard Hard Brown Weight Source Bedscale Bedscale Laboratory Results - last 24 hr 02/12/18 02/13/18 02/13/18 21:23 06:00 12:02 POC Glucose 133 H 246 H 265 H 02/13/18 16:08 POC Glucose 223 H Home Medication Medication Instructions Recorded Type Acetaminophen [Tylenol Extra 1,000 mg PO Q4HR PRN tab 11/30/17 Rx Strength] Ascorbic Acid [Vitamin C] 500 mg PO DAILY tab 11/30/17 Rx Carvedilol [Coreg] 25 mg PO BID tab 11/30/17 Rx Magnesium Hydroxide [Milk of 30 ml PO HS PRN udc 11/30/17 Rx Magnesia] Multivitamin [Theragran] 1 tab PO DAILY tab 11/30/17 Rx Pantoprazole [Protonix] 40 mg PO DAILY ect 11/30/17 Rx Potassium Chloride Elixir 10 meq PO DAILY udc 11/30/17 Rx QUEtiapine Fumarate [SEROquel] 300 mg PO HS tab 11/30/17 Rx Simvastatin [Zocor] 10 mg PO 1800 tab 11/30/17 Rx Tamsulosin [Flomax] 0.4 mg PO HS cap 11/30/17 Rx amLODIPine Besylate [Norvasc*] 10 mg PO DAILY tab 11/30/17 Rx cloNIDine HCl [Catapres] 0.1 mg PO Q6HR PRN tab 11/30/17 Rx Acetaminophen [Tylenol] 650 mg PO Q4HR PRN 02/09/18 History Al Hyd/Mg Hyd/Simethicone [Maalox] 30 ml PO Q4HR PRN 02/09/18 History Aspirin [Aspirin Chewable] 81 mg PO DAILY 02/09/18 History Docusate Sodium [Colace] 100 mg PO DAILY 02/09/18 History Glimepiride [Amaryl*] 4 mg PO DAILY 02/09/18 History Insulin 70/30 [NovoLIN 70/30] 35 units SUBQ BID 02/09/18 History Insulin Aspart Sliding Scale See Protocol SUBQ ACHS 02/09/18 History [NovoLOG INSULIN SLIDING SCALE] Prednisolone 1% Ophth Susp [Pred 1 drop RIGHT EYE QID 02/09/18 History Forte 1% Ophth Susp] Sitagliptin [Januvia] 50 mg PO DAILY 02/09/18 History Current Medications Generic Name Dose Route Start Last Admin Trade Name Freq PRN Reason Stop Dose Admin Acetaminophen 650 mg 02/10/18 16:45 Tylenol PO 04/11/18 16:44 Q4HR PRN Mild Pain / Temp above 101 Acetaminophen 1,000 mg 02/10/18 16:45 02/12/18 16:33 Tylenol Extra Strength PO 04/11/18 16:44 1,000 mg Q4HR PRN Administration MODERATE PAIN Al Hydrox/Mg Hydrox/Simethicone 30 ml 02/10/18 16:45 Maalox PO 04/11/18 16:44 Q4HR PRN GERD Ascorbic Acid 500 mg 02/11/18 09:00 02/13/18 08:58 Vitamin C PO 04/12/18 08:59 500 mg DAILY KWAME Administration Aspirin 81 mg 02/11/18 09:00 02/13/18 08:58 Aspirin Chewable PO 04/12/18 08:59 81 mg DAILY KWAME Administration Carvedilol 25 mg 02/10/18 17:00 02/13/18 16:43 Coreg PO 04/11/18 16:59 25 mg BID KWAME Administration Docusate Sodium 100 mg 02/11/18 09:00 02/13/18 08:56 Colace PO 04/12/18 08:59 100 mg DAILY KWAME Administration Furosemide 60 mg 02/12/18 17:00 02/13/18 16:44 Lasix PO 04/13/18 16:59 60 mg BID KWAME Administration Glimepiride 4 mg 02/11/18 09:00 02/13/18 08:58 Amaryl PO 04/12/18 08:59 4 mg DAILY KWAME Administration Insulin Aspart 0 units 02/10/18 21:00 02/13/18 16:09 Novolog Insulin Sliding Scale SUBQ 04/11/18 20:59 3 units ACHS KWAME Administration Protocol Insulin Human Isoph/Insulin Regular 40 units 02/11/18 12:10 02/13/18 16:10 Novolin 70/30 SUBQ 04/12/18 12:09 40 unit BID KWAME Administration Protocol Magnesium Hydroxide 30 ml 02/10/18 16:45 Milk Of Magnesia PO 04/11/18 16:44 HS PRN Constipation Morphine Sulfate 15 mg 02/12/18 22:18 02/12/18 22:23 Morphine Ir PO 04/13/18 22:29 15 mg BID PRN Administration severe pain Multivitamins/Vitamin C 1 tab 02/11/18 09:00 02/13/18 08:58 Theragran PO 04/12/18 08:59 1 tab DAILY KWAME Administration Pantoprazole Sodium 40 mg 02/11/18 09:00 02/13/18 08:58 Protonix PO 04/12/18 08:59 40 mg DAILY KWAME Administration Potassium Chloride 10 meq 02/11/18 09:00 02/13/18 08:56 Potassium Chloride Elixir PO 04/12/18 08:59 10 meq DAILY KWAME Administration Prednisolone Acetate 1 drop 02/10/18 17:00 02/13/18 16:12 Pred Forte 1% Ophth Susp RIGHT EYE 04/11/18 16:59 1 drop QID KWAME Administration Quetiapine Fumarate 300 mg 02/10/18 21:00 02/12/18 21:24 Seroquel PO 04/11/18 20:59 300 mg HS KWAME Administration Protocol Simvastatin 10 mg 02/10/18 18:00 02/13/18 17:15 Zocor PO 04/11/18 17:59 10 mg 1800 KWAME Administration Protocol Sitagliptin Phosphate 50 mg 02/11/18 09:00 02/13/18 08:59 Januvia PO 04/12/18 08:59 50 mg DAILY KWAME Administration Tamsulosin HCl 0.4 mg 02/10/18 21:00 02/12/18 21:25 Flomax PO 04/11/18 20:59 0.4 mg HS KWAME Administration Review of Systems: A 12 point ROS was reviewed with the pertinent positive and negatives noted in the HPI. Social History Smoking Status Unknown if ever smoked Family Medical History Nonsignificant Physical Exam: General: Obese, no t page nay acute distress. no fever. HEENT: Head: normocephalic, atraiumatic. Oral cavity: moist, pink tongue, Eyes: No palloe, no icterus, pupil perrla. Eomi. Neck: Supple, no JVD, no carotid bruit. Cardio: S1 and S2 wnl. Respiratory: Vesicular breath sounds. decreased. Abdominal: Soft NT ND BS present. Genital/Urinary: Deferred. Extremities: NCCE. Neurological: AAOx3. Assessment: 1. Dysuria, likely 2/2 BPH, ? Prostatis. 2. DM2. 3. HTN. 4. Obesity. 5. HTN. 6. R/o KAREEM. 7. arthritis. 8. BPH. Plan: Will try Levaquin and if it helps than continue for 2 weeks, if it does not, then dc antibiotics in 3 to 5 days. Thank you, Dr Meehan for involving me in taking care of this patient. SignedAlfredo Devesh N., M.D. [id number]
[2018-02-14 06:32] LABS: % BASOPHILS 3.9 % (0.0-2.0); % EOSINOPHILS 1.8 % (0.0-5.0); % MONOCYTES 11.6 % (2.0-10.0); % NEUTROPHILS 63.7 % (40.0-80.0); BASOPHILE ABSOLUTE 0.5 Th/cumm (0-0.2); EOSINOPHILE ABSOLUTE 0.2 Th/cmm (0.1-0.4); HEMATOCRIT 38.3 % (41.0-60); HEMOGLOBIN 12.5 gm/dL (12-16); LYMPHOCYTE ABSOLUTE 2.2 Th/cmm (1.5-3.0); MEAN CELL VOLUME 81.2 fl (80-99); MEAN CORPUSCULAR HEMOGLOBIN 26.4 pg (27.0-31.0); MEAN CORPUSCULAR HGB CONC 32.5 pg (28.0-36.0); MEAN PLATELET VOLUME 8.2 fl; MONOCYTE ABSOLUTE 1.4 Th/cmm (0.3-1.0); NEUTROPHILE ABSOLUTE 7.5 Th/cmm (1.8-8.0); PLATELET COUNT 334 Th/cmm (150-400); RED BLOOD COUNT 4.72 Mil/cmm (3.80-5.80); RED CELL DISTRIBUTION WIDTH 14.2 % (11.5-20.0); WHITE BLOOD COUNT 11.8 Th/cmm (4.8-10.8)
[2018-02-14 06:59] LABS: ALB/GLOB RATIO 0.9 (1.0-1.8); ALBUMIN 3.3 gm/dL (4.2-5.5); ALKALINE PHOSPHATASE 109 U/L (34-104); ANION GAP 12.1 (7.0-16.0); BILIRUBIN,TOTAL 0.5 mg/dL (0.3-1.0); BUN - UREA NITROGEN 16 mg/dL (7-25); CALCIUM SERUM 9.3 mg/dL (8.6-10.3); CARBON DIOXIDE 23.6 mEq/L (21.0-31.0); CHLORIDE 104 mEq/L (98-107); CREATININE - SERUM 1.2 mg/dL (0.7-1.3); GFR AFRICAN-AMERICAN > 60.0 ml/min (>90); GFR NON AFRICAN-AMERICAN > 60.0 ml/min; GLUCOSE 188 mg/dL (70-105); POTASSIUM SERUM 3.7 mEq/L (3.5-5.1); SGOT 19 U/L (13-39); SGPT/ALT 11 U/L (7-52); SODIUM SERUM 136 mEq/L (136-145); TOTAL PROTEIN,SERUM 7.1 gm/dL (6.0-8.3)
[2018-02-14] MEDS ORDERED: Lactobacillus Rhamnosus GG 15 Billion CFU CAP.SPRINK PO SCH (09:00)
[2018-02-14] MEDS ORDERED: Probiotic Screen MC PRN (09:00)
[2018-02-14] MEDS: Pantoprazole 40 mg EC Tab PO SCH (09:18)
[2018-02-14] MEDS: Multivitamin Tab PO SCH (09:18)
[2018-02-14] MEDS: Aspirin 81mg Chewable Tab PO SCH (09:18)
[2018-02-14] MEDS: Potassium Chloride Elixir 20 mEq /15 mL UDC PO SCH (09:19)
[2018-02-14] MEDS: Prednisolone 1% Ophth Susp 5 mL Bottle RIGHT EYE SCH (09:19)
[2018-02-14] MEDS: INSULIN ASPART SLIDING SCALE 100 UNITS/ML UNIT SUBQ SCH ×2 (09:22→12:41)
[2018-02-14] MEDS: INSULIN 70/30 100 UNITS/ML SUBQ SCH (10:29)
--- NOTE | 2018-02-14 11:36 | General Progress Note ---
Subjective - Review of Systems Service Date: 02/14/18 Subjective: pt is agitated a little no complaints denies pain and discomfort Objective - Results Result Diagrams: 02/14/18 06:10 02/14/18 06:10 Recent Labs: Laboratory Last Values WBC 11.8 Th/cmm (4.8-10.8) H 02/14/18 06:10 RBC 4.72 Mil/cmm (3.80-5.80) 02/14/18 06:10 Hgb 12.5 gm/dL (12-16) 02/14/18 06:10 Hct 38.3 % (41.0-60) L 02/14/18 06:10 MCV 81.2 fl (80-99) 02/14/18 06:10 MCH 26.4 pg (27.0-31.0) L 02/14/18 06:10 MCHC Differential 32.5 pg (28.0-36.0) 02/14/18 06:10 RDW 14.2 % (11.5-20.0) 02/14/18 06:10 Plt Count 334 Th/cmm (150-400) 02/14/18 06:10 MPV 8.2 fl 02/14/18 06:10 Neutrophils % 63.7 % (40.0-80.0) 02/14/18 06:10 Lymphocytes % 19.0 % (20.0-50.0) L 02/14/18 06:10 Monocytes % 11.6 % (2.0-10.0) H 02/14/18 06:10 Eosinophils % 1.8 % (0.0-5.0) 02/14/18 06:10 Basophils % 3.9 % (0.0-2.0) H 02/14/18 06:10 Eos Smear Source URINE 02/11/18 14:15 Eos Smear Total Cells NONE SEEN (NONE SEEN) 02/11/18 14:15 PT 9.9 SECONDS (9.5-11.5) 02/09/18 18:02 INR 0.95 (0.5-1.4) 02/09/18 18:02 Sodium 136 mEq/L (136-145) 02/14/18 06:10 Potassium 3.7 mEq/L (3.5-5.1) 02/14/18 06:10 Chloride 104 mEq/L (98-107) 02/14/18 06:10 Carbon Dioxide 23.6 mEq/L (21.0-31.0) 02/14/18 06:10 Anion Gap 12.1 (7.0-16.0) 02/14/18 06:10 BUN 16 mg/dL (7-25) 02/14/18 06:10 Creatinine 1.2 mg/dL (0.7-1.3) 02/14/18 06:10 Est GFR ( Amer) > 60.0 ml/min (>90) 02/14/18 06:10 Est GFR (Non-Af Amer) > 60.0 ml/min 02/14/18 06:10 BUN/Creatinine Ratio 13.3 02/14/18 06:10 Glucose 188 mg/dL (70-105) H 02/14/18 06:10 POC Glucose 293 MG/DL (70 - 105) H 02/14/18 11:13 Hemoglobin A1c % 14.5 % (4.0-6.0) H 02/09/18 18:02 Uric Acid 6.9 mg/dL (4.4-7.6) 02/12/18 06:15 Calcium 9.3 mg/dL (8.6-10.3) 02/14/18 06:10 Phosphorus 3.3 mg/dL (2.5-5.0) 02/12/18 06:15 Magnesium 2.2 mg/dL (1.9-2.7) 02/12/18 06:15 Total Bilirubin 0.5 mg/dL (0.3-1.0) 02/14/18 06:10 AST 19 U/L (13-39) 02/14/18 06:10 ALT 11 U/L (7-52) 02/14/18 06:10 Alkaline Phosphatase 109 U/L (34-104) H 02/14/18 06:10 Creatine Kinase 292 U/L (30-223) H 02/09/18 18:02 CK-MB (CK-2) 3.2 ng/mL (0.6-6.3) 02/09/18 18:02 Troponin I 0.01 ng/mL (0.01-0.05) 02/09/18 18:02 B-Natriuretic Peptide 140.0 pg/mL (5.0-100.0) H 02/14/18 06:10 Total Protein 7.1 gm/dL (6.0-8.3) 02/14/18 06:10 Albumin 3.3 gm/dL (4.2-5.5) L 02/14/18 06:10 Globulin 3.8 gm/dL 02/14/18 06:10 Albumin/Globulin Ratio 0.9 (1.0-1.8) L 02/14/18 06:10 Triglycerides 131 mg/dL (<150) 02/09/18 18:02 Cholesterol 118 mg/dL (<200) 02/09/18 18:02 LDL Cholesterol Direct 64 mg/dL (75-193) L 02/09/18 18:02 HDL Cholesterol 36 mg/dL (23-92) 02/09/18 18:02 TSH 1.27 uIU/ml (0.34-5.60) 02/12/18 06:15 Urine Source RANDOM 02/12/18 00:55 Urine Color YELLOW 02/12/18 00:55 Urine Clarity HAZY (CLEAR) 02/12/18 00:55 Urine pH 6.0 (4.6 - 8.0) 02/12/18 00:55 Ur Specific [place] 1.025 (1.005-1.030) 02/12/18 00:55 Urine Protein >=300 mg/dL (NEGATIVE) 02/12/18 00:55 Urine Glucose (UA) >=1000 mg/dL (NEGATIVE) H 02/12/18 00:55 Urine Ketones NEGATIVE mg/dL (NEGATIVE) 02/12/18 00:55 Urine Blood MODERATE (NEGATIVE) H 02/12/18 00:55 Urine Nitrate NEGATIVE (NEGATIVE) 02/12/18 00:55 Urine Bilirubin NEGATIVE (NEGATIVE) 02/12/18 00:55 Urine Urobilinogen 0.2 E.U./dL (0.2 - 1.0) 02/12/18 00:55 Ur Leukocyte Esterase NEGATIVE (NEGATIVE) 02/12/18 00:55 Urine RBC 5-10 /hpf (0-5) H 02/12/18 00:55 Urine WBC 0-2 /hpf (0-5) 02/12/18 00:55 Ur Epithelial Cells NONE SEEN /lpf (FEW) 02/12/18 00:55 Urine Bacteria NONE SEEN /hpf (NONE SEEN) 02/12/18 00:55 Ur Random Sodium 51 mmol/L 02/11/18 14:15 Urine Creatinine 121.0 mg/dl (39.0-259.0) 02/11/18 14:15 - Physical Exam Vitals and I&O: Vital Signs Temp 98.0 F 02/14/18 08:00 Pulse 92 02/14/18 09:19 Resp 20 02/14/18 08:27 BP 159/74 02/14/18 09:19 Pulse Ox 94 02/14/18 08:00 Intake & Output 02/13/18 02/14/18 02/14/18 18:59 06:59 18:59 Intake Total 1600 Balance 1600 Weight (lbs) 129.274 kg Intake: Oral 1600 Other: # Voids 2 # Bowel Movements 1 Stool Characteristics Hard Hard Hard Brown Brown Brown Weight Source Bedscale Active Medications: Current Medications Acetaminophen (Tylenol) 650 mg PO Q4HR PRN PRN Reason: Mild Pain / Temp above 101 Stop: 04/11/18 16:44 Acetaminophen (Tylenol Extra Strength) 1,000 mg PO Q4HR PRN PRN Reason: MODERATE PAIN Stop: 04/11/18 16:44 Last Admin: 02/12/18 16:33 Dose: 1,000 mg Al Hydrox/Mg Hydrox/Simethicone (Maalox) 30 ml PO Q4HR PRN PRN Reason: GERD Stop: 04/11/18 16:44 Ascorbic Acid (Vitamin C) 500 mg PO DAILY KWAME Stop: 04/12/18 08:59 Last Admin: 02/14/18 09:18 Dose: 500 mg Aspirin (Aspirin Chewable) 81 mg PO DAILY KWAME Stop: 04/12/18 08:59 Last Admin: 02/14/18 09:18 Dose: 81 mg Carvedilol (Coreg) 25 mg PO BID [facility] Stop: 04/11/18 16:59 Last Admin: 02/14/18 09:19 Dose: 25 mg Docusate Sodium (Colace) 100 mg PO DAILY KWAME Stop: 04/12/18 08:59 Last Admin: 02/14/18 09:17 Dose: 100 mg Furosemide (Lasix) 60 mg PO BID [facility] Stop: 04/13/18 16:59 Last Admin: 02/14/18 09:18 Dose: 60 mg Glimepiride (Amaryl) 4 mg PO DAILY [facility] Stop: 04/12/18 08:59 Last Admin: 02/14/18 09:18 Dose: 4 mg Insulin Aspart (Novolog Insulin Sliding Scale) 0 units SUBQ ACHS KWAME PRN Reason: Protocol Stop: 04/11/18 20:59 Last Admin: 02/14/18 09:22 Dose: 3 units Insulin Human Isoph/Insulin Regular (Novolin 70/30) 40 units SUBQ BID KWAME PRN Reason: Protocol Stop: 04/12/18 12:09 Last Admin: 02/14/18 10:29 Dose: Not Given Lactobacillus Rhamnosus (Culturelle 15b) 1 each PO DAILY KWAME Stop: 04/15/18 08:59 Last Admin: 02/14/18 09:17 Dose: 1 each Levofloxacin (Levaquin) 750 mg PO DAILY [facility] Stop: 04/15/18 08:59 Last Admin: 02/14/18 09:18 Dose: 750 mg Magnesium Hydroxide (Milk Of Magnesia) 30 ml PO HS PRN PRN Reason: Constipation Stop: 04/11/18 16:44 Miscellaneous (Probiotic Screen) 1 ea MC PRN PRN PRN Reason: PROTOCOL Stop: 04/15/18 08:59 Morphine Sulfate (Morphine Ir) 15 mg PO BID PRN PRN Reason: severe pain Stop: 04/13/18 22:29 Last Admin: 02/12/18 22:23 Dose: 15 mg Multivitamins/Vitamin C (Theragran) 1 tab PO DAILY KWAME Stop: 04/12/18 08:59 Last Admin: 02/14/18 09:18 Dose: 1 tab Pantoprazole Sodium (Protonix) 40 mg PO DAILY KWAME Stop: 04/12/18 08:59 Last Admin: 02/14/18 09:18 Dose: 40 mg Potassium Chloride (Potassium Chloride Elixir) 10 meq PO DAILY [facility] Stop: 04/12/18 08:59 Last Admin: 02/14/18 09:19 Dose: 10 meq Prednisolone Acetate (Pred Forte 1% Ophth Susp) 1 drop RIGHT EYE QID [facility] Stop: 04/11/18 16:59 Last Admin: 02/14/18 09:19 Dose: 1 drop Quetiapine Fumarate (Seroquel) 300 mg PO HS KWAME PRN Reason: Protocol Stop: 04/11/18 20:59 Last Admin: 02/13/18 21:27 Dose: 300 mg Simvastatin (Zocor) 10 mg PO 1800 KWAME PRN Reason: Protocol Stop: 04/11/18 17:59 Last Admin: 02/13/18 17:15 Dose: 10 mg Sitagliptin Phosphate (Januvia) 50 mg PO DAILY [facility] Stop: 04/12/18 08:59 Last Admin: 02/14/18 09:18 Dose: 50 mg Tamsulosin HCl (Flomax) 0.4 mg PO HS [facility] Stop: 04/11/18 20:59 Last Admin: 02/13/18 21:27 Dose: 0.4 mg General: Alert, No acute distress HEENT: Atraumatic, Mucous membr. moist/pink Neck: Supple, +2 carotid pulse wo bruit Cardiovascular: Regular rate, Normal S1, Normal S2 Lungs: Clear to auscultation Abdomen: Bowel sounds, Soft, Obese Extremities: no Edema Neurological: Sensation intact Skin: no Rash Psych/Mental Status: Other (decompensation of psychosis) Assessment/Plan - Problem List Patient Problems: All Active Problems WEAKNESS WITH LOWER EXT SWELLING (Acute) Nutritional Asmnt/Malnutr-PDOC - Dietary Evaluation Malnutrition Findings (Please click <Entered> for more info): Nutritional Asmnt/Malnutrition Start: 02/10/18 16: 59 Text: Status: Complete Freq: Document 02/10/18 17:05 LCEZG (Rec: 02/10/18 17:11 [id number] [id number]) Nutritional Asmnt/Malnutrition Patient General Information Nutritional Screening High Risk Diagnosis CHF Pertinent Medical Hx/Surgical Hx HTn, Dm, CAD, CHF, dyslipidemia, BKAs, schizophrenia, bipolar Subjective Information Pt seen sitting up in bed, awake and alert, hyperverbal. Pt reported good appetite. Per EMR, pt consumed 100% of breakfast this morning. Pt had bilateral BKA noted. Current Diet Order/ Nutrition Support CCHO 60gm Pertinent Medications vit C, colace, lasix, novolog, novolin, theragran, protinix, kcl, seroquel Pertinent Labs 02/10 glucose 340, POC 255-464 02/09 glucose 462, POC 461-485 Nutritional Hx/Data Height 1.83 m Height (Calculated Centimeters) 182.9 Current Weight (lbs) 128.82 kg Weight (Calculated Kilograms) 128.8 Weight (Calculated Grams) 600128.2 [place] Body Weight 157 Body Mass Index (BMI) 38.5 Weight Status Obese GI Symptoms GI Symptoms None Last BM 02/10 Difficult in: None Usual diet at home pt reported he was on diabetic 1800kcal diet and 2gm low sodium diet Skin Integrity/Comment: intact, abraham Son Current %PO Good (75-100%) Estimated Nutritional Goals BEE in Kcals: Adj wt of IBW Calories/Kcals/Kg 23-27 Kcals Calculated Protein: Adj wt of IBW Protein g/k Protein Calculated 86 Fluid: ml 1977-2321ml (1ml/ckal) Nutritional Problem 1. Problem Problem altered nutrition related labs Etiology hx of DM Signs/Symptoms: glucose 340-462, POC 255-485 Malnutrition Alert Protein-Calorie Malnutrition N/A Is there a minimum of two criteria No selected? Query Text:Check all the applicable criteria. A minimum of two criteria are recommended for diagnosis of either severe or non-severe malnutrition. Intervention/Recommendation Comments 1. Recommend adding 2gm low sodium diet d/t CHF 2. Monitor PO intake, wt, labs and skin integrity 3. F/U as moderate risk in 3-5 day, 02/13-02/15 Expected Outcomes/Goals Expected Outcomes/Goals 1. PO intake to meet at least 75% of nutritional needs. 2. Wt stability, skin to remain intact, labs to approach WNL.
== END 2018-02-14 13:45 | DRG 291 ==
LOC: ER 13:56 → TELE 18:54 → MSI 02-10 15:00
PROVIDERS: ADMIT Internal Medicine; ATTEND Internal Medicine
DX: I11.0 Hypertensive heart disease with heart failure (principal); E11.00 Type 2 diabetes mellitus with hyperosmolarity without nonketotic hyperglycemic-hyperosmolar coma (NKHHC); I50.23 Acute on chronic systolic (congestive) heart failure; E11.65 Type 2 diabetes mellitus with hyperglycemia; F29 Unspecified psychosis not due to a substance or known physiological condition; I25.10 Atherosclerotic heart disease of native coronary artery without angina pectoris; E78.5 Hyperlipidemia, unspecified; F20.9 Schizophrenia, unspecified; E86.0 Dehydration; E66.01 Morbid (severe) obesity due to excess calories; E11.40 Type 2 diabetes mellitus with diabetic neuropathy, unspecified; F17.200 Nicotine dependence, unspecified, uncomplicated; N40.0 Benign prostatic hyperplasia without lower urinary tract symptoms; G47.33 Obstructive sleep apnea (adult) (pediatric); M19.90 Unspecified osteoarthritis, unspecified site; R39.2 Extrarenal uremia; F31.9 Bipolar disorder, unspecified; I25.5 Ischemic cardiomyopathy; E11.51 Type 2 diabetes mellitus with diabetic peripheral angiopathy without gangrene; Z89.512 Acquired absence of left leg below knee; Z79.4 Long term (current) use of insulin; Z68.38 Body mass index [BMI] 38.0-38.9, adult; Z86.73 Personal history of transient ischemic attack (TIA), and cerebral infarction without residual deficits; Z88.0 Allergy status to penicillin; Z89.511 Acquired absence of right leg below knee; Z79.899 Other long term (current) drug therapy
CPT/HCPCS: 36415-UA; 71045-TC; 76770-TC; 80048-TC; 80053-TC; 80061-TC; 81001-TC; 81015-TC; 82550-TC; 82553; 82570-TC; 82948-90; 83036-90; 83735-TC; 83880-TC; 84100-TC; 84300-TC; 84443-TC; 84484-TC; 84550-TC; 85025-TC; 85610-TC; 87086-90; 93005; 94760; J1815; J1940; J2650; J7040; Z7610